=== PATIENT | male | born 1980 | race Caucasian/White ===

== ENCOUNTER 2017-11-30 17:07 | Emergency (ER) | payer OTHER ==
--- NOTE | 2017-11-30 17:50 | ED ---
General Adult HPI - General Chief complaint: Psychiatric Symptoms Stated complaint: Mental Health Time Seen by Provider: 11/30/17 17:10 Source: patient, RN notes reviewed Mode of arrival: ambulatory Limitations: no limitations - History of Present Illness Initial comments: This is a 37-year-old male who presents emergency Department with a past medical history significant for depression and anxiety PTSD. Patient also has in the past attempted suicide. Patient was upset with a lot of things going on his life in today in Court he broke down a stair clean was crying and stating he was going to kill himself so he was brought to the emergency department. Patient states over the last month he has had severe mood changes in his been very verbally abusive to his . Patient states he is feeling suicidal but not homicidal. Patient denies any recent drug use. Patient denies any alcohol use. Patient denies any physical complaints today. Patient denies headache patient denies numbness weakness. Patient denies chest pain palpitations difficulty breathing shortness of breath. Patient denies abdominal pain patient denies nausea vomiting diarrhea. - Related Data Home Medications Medication Instructions Recorded Confirmed Beckley Carbonate [Beckley 450 mg PO HS 11/30/17 11/30/17 Carbonate ER] Loratadine [Claritin] 10 mg PO DAILY 11/30/17 11/30/17 QUEtiapine XR [SEROquel XR] 150 mg PO HS 11/30/17 11/30/17 traMADol HCL [Ultram] 50 mg PO TID PRN 11/30/17 11/30/17 Allergies Allergy/AdvReac Type Severity Reaction Status Date / Time No Known Allergies Allergy Verified 11/30/17 17:52 Review of Systems ROS Statement: Those systems with pertinent positive or pertinent negative responses have been documented in the HPI. ROS Other: All systems not noted in ROS Statement are negative. Past Medical History Past Medical History: No Reported History History of Any Multi-Drug Resistant Organisms: MRSA Date of last positivie culture/infection: 2010 MDRO Source:: left arm Past Surgical History: No Surgical Hx Reported Past Psychological History: Anxiety, Bipolar, PTSD Smoking Status: Current every day smoker Past Alcohol Use History: Occasional Past Drug Use History: Marijuana General Exam - General Exam Comments Initial Comments: GENERAL: Patient is well-developed and well-nourished. Patient is nontoxic and well- hydrated and is in no acute distress. ENT: Neck is soft and supple. No significant lymphadenopathy is noted. Oropharynx is clear. Moist mucous membranes. Neck has full range of motion without eliciting any pain. EYES: The sclera were anicteric and conjunctiva were pink and moist. Extraocular movements were intact and pupils were equal round and reactive to light. Eyelids were unremarkable. PULMONARY: Unlabored respirations. Good breath sounds bilaterally. No audible rales rhonchi or wheezing was noted. CARDIOVASCULAR: There is a regular rate and rhythm without any murmurs gallops or rubs. ABDOMEN: Soft and nontender with normal bowel sounds. No palpable organomegaly was noted. There is no palpable pulsatile mass. SKIN: Skin is clear with no lesions or rashes and otherwise unremarkable. NEUROLOGIC: Patient is alert and oriented x3. Cranial nerves II through XII are grossly intact. Motor and sensory are also intact. Normal speech, volume and content. Symmetrical smile. MUSCULOSKELETAL: Normal extremities with adequate strength and full range of motion. LYMPHATICS: No significant lymphadenopathy is noted PSYCHIATRIC: Patient states he is suicidal and been very depressed lately and he is also concerned about his severe mood swings lately. Limitations: no limitations Course Vital Signs 11/30/17 17:13 Temperature 97.2 F L Pulse Rate 77 Respiratory 16 Rate Blood Pressure 135/82 O2 Sat by Pulse 98 Oximetry Medical Decision Making - Medical Decision Making EPS evaluated the patient and determined that the patient was safe to go home with a follow-up appointment with [facility] tomorrow. - Lab Data Lab Results 11/30/17 Range/Units 19:00 Urine Opiates Screen Not Detected (NotDetected) Ur Oxycodone Screen Not Detected (NotDetected) Urine Methadone Screen Not Detected (NotDetected) Ur Propoxyphene Screen Not Detected (NotDetected) Ur Barbiturates Screen Not Detected (NotDetected) U Tricyclic Antidepress Not Detected (NotDetected) Ur Phencyclidine Scrn Not Detected (NotDetected) Ur Amphetamines Screen Detected H (NotDetected) U Methamphetamines Scrn Not Detected (NotDetected) U Benzodiazepines Scrn Not Detected (NotDetected) Urine Cocaine Screen Not Detected (NotDetected) U Marijuana (THC) Screen Not Detected (NotDetected) Disposition Clinical Impression: Situational depression Disposition: HOME SELF-CARE Condition: Good Instructions: Depression (ED) Referrals: Lobo Villarreal MD [Primary Care Provider] - 1-2 days Time of Disposition: 20:05
[2017-11-30 19:28] LABS: Amphetamine Screen,Urine Detected (NotDetected); Barbiturate Screen,Urine Not Detected (NotDetected); Benzodiazepines Screen,Urine Not Detected (NotDetected); Cocaine Screen,Urine Not Detected (NotDetected); Methadone Screen, Urine Not Detected (NotDetected); Opiate Screen,Urine Not Detected (NotDetected); Oxycodone Screen, Urine Not Detected (NotDetected); Phencyclidine Screen,Urine Not Detected (NotDetected); Tricyclic Antidepressant,Urine Not Detected (NotDetected); Urn Cannabinoid Scrn Not Detected (NotDetected)
[2017-11-30 21:15] VITALS: BP 142/73; PULSE 84; RESP 18; TEMP 97.9
== END 2017-11-30 21:20 | disposition home or self-care (01) ==
LOC: EC 17:07
DX: F43.21 Adjustment disorder with depressed mood (principal); F31.9 Bipolar disorder, unspecified; F17.200 Nicotine dependence, unspecified, uncomplicated; Z86.14 Personal history of Methicillin resistant Staphylococcus aureus infection; Z79.899 Other long term (current) drug therapy
CPT/HCPCS: 80306; 82075; 99284

== ENCOUNTER 2017-12-08 11:33 | Inpatient (IN) | payer MEDICAID, OTHER ==
--- NOTE | 2017-12-08 13:14 | ED ---
Psych HPI - General Chief Complaint: Psychiatric Symptoms Stated Complaint: mental health Time Seen by Provider: 12/08/17 11:39 Source: patient, RN notes reviewed Mode of arrival: ambulatory Limitations: no limitations - History of Present Illness Initial Comments: 37-year-old male presents emergency Department with chief complaint of psychiatric evaluation. Patient states that he is depressed, suicidal. Patient states he has been in a row of facilities in the past. Patient states that he is not safe at home. Family states that he was recently started on injection medications but states he just received yesterday and he cannot be left at home any longer. Denies any recent drug abuse but has a history of drug abuse and pill overdose. Patient denies alcohol. - Related Data Home Medications Medication Instructions Recorded Confirmed Delisle Carbonate [Delisle 900 mg PO HS 11/30/17 12/08/17 Carbonate ER] Loratadine [Claritin] 10 mg PO DAILY 11/30/17 12/08/17 traMADol HCL [Ultram] 50 mg PO TID PRN 11/30/17 12/08/17 Benztropine Mesylate [Cogentin] 2 mg PO BID 12/08/17 12/08/17 QUEtiapine FUMARATE [SEROquel] 200 mg PO HS 12/08/17 12/08/17 fluPHENAZine DECANOATE [Prolixin 25 mg IM Q7D 12/08/17 12/08/17 Decanoate] Allergies Allergy/AdvReac Type Severity Reaction Status Date / Time No Known Allergies Allergy Verified 12/08/17 12:18 Review of Systems ROS Statement: Those systems with pertinent positive or pertinent negative responses have been documented in the HPI. ROS Other: All systems not noted in ROS Statement are negative. Past Medical History Past Medical History: No Reported History History of Any Multi-Drug Resistant Organisms: MRSA Date of last positivie culture/infection: 2010 MDRO Source:: left arm Past Surgical History: No Surgical Hx Reported Past Psychological History: Anxiety, Bipolar, PTSD Smoking Status: Current every day smoker Past Alcohol Use History: Occasional Past Drug Use History: Marijuana General Exam Limitations: no limitations General appearance: alert, in no apparent distress Eye exam: Present: normal appearance, PERRL, EOMI. Absent: scleral icterus, conjunctival injection, periorbital swelling ENT exam: Present: normal exam, normal oropharynx, mucous membranes moist Neck exam: Present: normal inspection, full ROM. Absent: tenderness, meningismus, lymphadenopathy Respiratory exam: Present: normal lung sounds bilaterally. Absent: respiratory distress, wheezes, rales, rhonchi, stridor Cardiovascular Exam: Present: regular rate, normal rhythm, normal heart sounds. Absent: systolic murmur, diastolic murmur, rubs, gallop, clicks GI/Abdominal exam: Present: soft, normal bowel sounds. Absent: distended, tenderness, guarding, rebound, rigid Back exam: Absent: CVA tenderness (R), CVA tenderness (L) Neurological exam: Present: alert, oriented X3, CN II-XII intact Psychiatric exam: Present: depressed Skin exam: Present: warm, dry, intact, normal color. Absent: rash Course Vital Signs 12/08/17 11:37 Temperature 98.0 F Pulse Rate 90 Respiratory 20 Rate Blood Pressure 160/84 O2 Sat by Pulse 100 Oximetry Disposition Clinical Impression: Depression, Suicidal ideation Disposition: [facility] Condition: Stable Referrals: Lobo Villarreal MD [Primary Care Provider] - 1-2 days
[2017-12-08 15:54] LABS: Amphetamine Screen,Urine Detected (NotDetected); Barbiturate Screen,Urine Not Detected (NotDetected); Benzodiazepines Screen,Urine Not Detected (NotDetected); Cocaine Screen,Urine Not Detected (NotDetected); Methadone Screen, Urine Not Detected (NotDetected); Opiate Screen,Urine Not Detected (NotDetected); Oxycodone Screen, Urine Not Detected (NotDetected); Phencyclidine Screen,Urine Not Detected (NotDetected); Tricyclic Antidepressant,Urine Not Detected (NotDetected); Urn Cannabinoid Scrn Not Detected (NotDetected)
[2017-12-08] MEDS ORDERED: MAG HYDROX/AL HYDROX/SIMETH 30 ML CUP PO PRN (16:58)
[2017-12-08] MEDS ORDERED: ACETAMINOPHEN TAB 325 MG TAB PO PRN (16:58)
[2017-12-08] MEDS ORDERED: MAGNESIUM HYDROXIDE 2,400 MG/10 ML CUP PO PRN (16:58)
[2017-12-08 17:12] VITALS: BMI 25.4
[2017-12-08] MEDS: NICOTINE POLACRILEX 2 MG GUM BUCCAL PRN (19:58)
[2017-12-08] MEDS: LORazepam 1 MG TAB PO PRN (20:29)
[2017-12-08] MEDS ORDERED: BENZTROPINE MESYLATE 1 MG TAB PO SCH (21:00)
[2017-12-08] MEDS ORDERED: LORazepam 1 MG TAB PO STA (22:58)
[2017-12-09 06:49] VITALS: RESP 16
--- NOTE | 2017-12-09 06:54 | P.MDCNMH ---
History of Present Illness H&P Date: 12/09/17 Chief Complaint: Medical management 36-year-old male with no significant past medical history presented to the hospital voluntarily for psychiatric evaluation due to feeling depressed and having suicidal ideations. Patient indicated that he never attempted suicide but he gets these thoughts on regular basis and he's been different facilities and past. He reports that he is compliant with his medications at this time. Other than that he denies any medical complaints as he denied headache, fevers, chills, denies any weight changes, denies any chest pain or trouble breathing denies any coughing denies any abdominal pain denies any nausea or vomiting denies any changes in his bowel habits or urinary habits denies any focal neurologic deficits dizziness or lightheadedness. Patient also denies any GI bleeding or any bleeding tendencies. Review of Systems Pertinent positives as noted in HPI. All other systems were reviewed and are negative Past Medical History Past Medical History: No Reported History History of Any Multi-Drug Resistant Organisms: MRSA Date of last positivie culture/infection: 2010 MDRO Source:: left arm Past Surgical History: No Surgical Hx Reported Past Anesthesia/Blood Transfusion Reactions: No Reported Reaction Past Psychological History: Anxiety, Bipolar, PTSD Smoking Status: Current every day smoker Past Alcohol Use History: Occasional Past Drug Use History: Marijuana - Past Family History Mother Family Medical History: COPD Father Additional Family Medical History / Comment(s): alcohol abuse Medications and Allergies Home Medications Medication Instructions Recorded Confirmed Type Tomball Carbonate [Tomball 900 mg PO HS 11/30/17 12/08/17 History Carbonate ER] Loratadine [Claritin] 10 mg PO DAILY 11/30/17 12/08/17 History traMADol HCL [Ultram] 50 mg PO TID PRN 11/30/17 12/08/17 History Benztropine Mesylate [Cogentin] 2 mg PO BID 12/08/17 12/08/17 History Nicotine Polacrilex [Nicorette] 2 mg BUCCAL Q2H 12/08/17 12/08/17 History QUEtiapine FUMARATE [SEROquel] 200 mg PO HS 12/08/17 12/08/17 History fluPHENAZine DECANOATE [Prolixin 25 mg IM Q7D 12/08/17 12/08/17 History Decanoate] Allergies Allergy/AdvReac Type Severity Reaction Status Date / Time No Known Allergies Allergy Verified 12/08/17 12:18 Physical Exam Vitals: Vital Signs Temp Pulse Pulse Resp BP BP Pulse Ox 12/09/17 06:48 97.7 F 74 16 119/58 12/08/17 16:59 98 F 78 20 134/73 12/08/17 11:37 98.0 F 90 20 160/84 100 Intake and Output 12/08/17 12/08/17 12/09/17 14:59 22:59 06:59 Other: Weight 81.193 kg 78.131 kg Patient Weight 12/09/17 06:59 Weight 78.131 kg Constitutional: No acute distress, conversant, pleasant Eyes: Anicteric sclerae, moist conjunctiva, no lid-lag Pupils equal round reactive to light ENMT: NC/AT Oropharynx clear, no erythema, exudates Neck: Supple, FROM, no masses, or JVD No carotid bruits No thyromegaly Lungs: Clear to auscultation Clear to percussion Normal respiratory effort, no accessory muscle use Cardiovascular: Heart regular in rate and rhythm, No murmurs, gallops, or rubs No peripheral edema Abdominal: Soft Nontender, no guarding, rebound or rigidity Abdomen moving with respiration Normoactive bowel sounds No hepatomegaly, No splenomegaly No palpable mass No abdominal wall hernia noted Skin: Normal temperature, tone, texture, turgor No induration No subcutaneous nodules No rash, lesions No ulcers Extremities: No digital cyanosis No clubbing Pedal pulses intact and symmetrical Radial pulses intact and symmetrical No calf tenderness Psychiatric: Alert and oriented to person, place and time Depressed affect poor judgment Neuro Muscles Strength 5/5 in all 4 extremities Sensation to light touch grossly present throughout No focal sensory deficits Lymphatics: no palpable cervical or supraclavicular , or inguinal lymph nodes Cranial Nerve Examination - Cranial Nerves Cranial Nerve II- Optic: Intact Cranial Nerve III- Oculomotor: Intact Cranial Nerve IV- Trochlear: Intact Cranial Nerve V- Trigeminal: Intact Cranial Nerve - Abducens: Intact Cranial Nerve VII- Facial: Intact Cranial Nerve VIII- Auditory: Intact Cranial Nerve IX- Glossopharyngeal: Intact Cranial Nerve X- Vagus: Intact Cranial Nerve XI- Accessory: Intact Cranial Nerve XII- Hypoglossal: Intact Results Labs: Abnormal Lab Results - Last 24 Hours (Table) 12/08/17 Range/Units 15:28 Ur Amphetamines Screen Detected H (NotDetected) Assessment and Plan (1) Depression Narrative/Plan: Management per psych Current Visit: Yes Status: Acute Code(s): F32.9 - MAJOR DEPRESSIVE DISORDER , SINGLE EPISODE, UNSPECIFIED SNOMED Code(s): 49023069 (2) Suicidal ideation Narrative/Plan: Torrie precautions management per psych Current Visit: Yes Status: Acute Code(s): R45.851 - SUICIDAL IDEATIONS SNOMED Code(s): 9062616 Plan: tobacco smoking abuse patient counseled to quit smoking dvt Prophylaxis low risk and ambulatory Thank you for allowing us to participate in the care of this patient. We will follow peripherally. Do not hesitate to contact us with questions. Someone can be reached from the [facility] hospitalist group at all hours of the day at [phone].
[2017-12-09 08:14] LABS: Basophils # (A) 0.1 k/uL (0-0.2); Basophils % (A) 1 %; Eosinophils # (A) 0.3 k/uL (0-0.7); Eosinophils % (A) 4 %; HCT 42.1 % (39.0-53.0); HGB 14.3 gm/dL (13.0-17.5); Lymphocytes # (A) 3.3 k/uL (1.0-4.8); Lymphocytes % (A) 40 %; MCH 29.6 pg (25.0-35.0); MCHC 33.9 g/dL (31.0-37.0); MCV 87.4 fL (80.0-100.0); Monocytes # (A) 0.5 k/uL (0-1.0); Monocytes % (A) 6 %; Neutrophils % (A) 49 %; Platelet Count 327 k/uL (150-450); RBC 4.81 m/uL (4.30-5.90); RDW 13.1 % (11.5-15.5); WBC 8.2 k/uL (3.8-10.6)
[2017-12-09 08:54] LABS: ALT 28 U/L (21-72); AST 27 U/L (17-59); Albumin 3.8 g/dL (3.5-5.0); Alkaline Phosphatase 71 U/L (38-126); Anion Gap 10 mmol/L; Calcium 9.5 mg/dL (8.4-10.2); Carbon Dioxide 26 mmol/L (22-30); Chloride 106 mmol/L (98-107); Cholesterol 120 mg/dL (<200); Glucose 93 mg/dL (74-99); HDL Cholesterol 52 mg/dL (40-60); LDL Cholesterol,Calculated 51 mg/dL (0-99); Potassium 4.6 mmol/L (3.5-5.1); Sodium 142 mmol/L (137-145); Total Bilirubin 0.8 mg/dL (0.2-1.3); Total Protein 6.2 g/dL (6.3-8.2); Triglycerides 86 mg/dL (<150)
[2017-12-09 09:11] LABS: Blood Urea Nitrogen 13 mg/dL (9-20)
--- NOTE | 2017-12-09 09:13 | P.HP ---
Psychiatric H&P - . H&P Date: 12/09/17 History & Physical: Allergies Allergy/AdvReac Type Severity Reaction Status Date / Time No Known Allergies Allergy Verified 12/08/17 12:18 Vital Signs Temp 97.7 F 12/09/17 06:48 Pulse 74 12/09/17 06:48 Resp 16 12/09/17 06:48 BP 119/58 12/09/17 06:48 Pulse Ox 100 12/08/17 11:37 Intake & Output 12/08/17 12/09/17 12/09/17 18:59 06:59 18:59 Weight 78.131 kg 78.131 kg Laboratory Last Values WBC 8.2 k/uL (3.8-10.6) 12/09/17 07:48 RBC 4.81 m/uL (4.30-5.90) 12/09/17 07:48 Hgb 14.3 gm/dL (13.0-17.5) 12/09/17 07:48 Hct 42.1 % (39.0-53.0) 12/09/17 07:48 MCV 87.4 fL (80.0-100.0) 12/09/17 07:48 MCH 29.6 pg (25.0-35.0) 12/09/17 07:48 MCHC 33.9 g/dL (31.0-37.0) 12/09/17 07:48 RDW 13.1 % (11.5-15.5) 12/09/17 07:48 Plt Count 327 k/uL (150-450) 12/09/17 07:48 Neutrophils % 49 % 12/09/17 07:48 Lymphocytes % 40 % 12/09/17 07:48 Monocytes % 6 % 12/09/17 07:48 Eosinophils % 4 % 12/09/17 07:48 Basophils % 1 % 12/09/17 07:48 Neutrophils # 4.0 k/uL (1.3-7.7) 12/09/17 07:48 Lymphocytes # 3.3 k/uL (1.0-4.8) 12/09/17 07:48 Monocytes # 0.5 k/uL (0-1.0) 12/09/17 07:48 Eosinophils # 0.3 k/uL (0-0.7) 12/09/17 07:48 Basophils # 0.1 k/uL (0-0.2) 12/09/17 07:48 Urine Opiates Screen Not Detected (NotDetected) 12/08/17 15:28 Ur Oxycodone Screen Not Detected (NotDetected) 12/08/17 15:28 Urine Methadone Screen Not Detected (NotDetected) 12/08/17 15:28 Ur Propoxyphene Screen Not Detected (NotDetected) 12/08/17 15:28 Ur Barbiturates Screen Not Detected (NotDetected) 12/08/17 15:28 U Tricyclic Antidepress Not Detected (NotDetected) 12/08/17 15:28 Ur Phencyclidine Scrn Not Detected (NotDetected) 12/08/17 15:28 Ur Amphetamines Screen Detected (NotDetected) H 12/08/17 15:28 U Methamphetamines Scrn Not Detected (NotDetected) 12/08/17 15:28 U Benzodiazepines Scrn Not Detected (NotDetected) 12/08/17 15:28 Urine Cocaine Screen Not Detected (NotDetected) 12/08/17 15:28 U Marijuana (THC) Screen Not Detected (NotDetected) 12/08/17 15:28 12/09/17 08:52 Identification: Willi Arias is a 37 years old white male living in [facility]. He was ? Recently admitted to [facility] on 12/08/2017 on a voluntary application for referral from [facility] with chief complaint of being depressed and having suicidal thoughts. History of present illness: Patient said he has been depressed for the last 2 months now. But he said he has been depressed since he was less than 10 years so. It is continuous and gets worse lasting from 2 hours to 2 months. He said his depression is precipitated by events in his life. He said during his severe depression he gets grider agitated and gets suicidal thoughts. This time he said he has been having suicidal thoughts for the last about week and a half. But he said he is not suicidal now and does not need to be watched or supervised. He said he had overdosed on pills on 1 occasion in the past. He also said he gets more swings. When he is manic it lasts for a few hours to 2 days. It could start on its own or it could be precipitated by external events. During his "manic". He gets angry and argumentative fights etc. He said because of his manic episodes he was kicked out of the house for fighting on one occasion. He denies hallucinations and delusional thinking. Previous psychiatric history/drug and alcohol abuse: He was in psychiatric hospitals about 6 times in the past and mostly for depression. He gets his outpatient treatment at [facility]. He was treated in the past with lithium and Seroquel Effexor trazodone Lexapro etc. Prior to coming here he got a shot of Prolixin D. He does not take any medicine on a regular basis. He denies abusing drugs and alcohol he said he had smoked in the past but he quit it since he is on probation. However patient is not a reliable historian and does not appear to provide history in a truthful manner. His drug screening was positive for amphetamine and when he was asked about it he admitted that he did some speed. Again his history is unreliable. Social history: Patient said he got his GED. He said he quit school in 10th grade since he got sick of his teachers. He said he did not have any issues with learning or discipline when he was going to school. However at the end of the interview when he was asked again he admitted that he did what he wanted and was suspended from school once. He insisted that he did not run away from home did not cut classes and was not in extracurricular activities. However eventually he said he was cutting classes and was goofing around. He said he was shy and nervous and minded his own business. Again this information does not coincide with his clinical presentation. He said he was raised well by his grandmother since his parents were busy partying. Apparently his grandmother had legal guardianship of him. He has been for the last 2 years. He does not have any children from his . But he has 4 children from 2 different women and apparently he pays child support through the court. However he does not have a job and does not have any income. It is interesting to find out how he is making payment for child support through the court. He said he lives with his who works. He is waiting for [employer]. He has Medicaid. He was not in the service. He does not have any congregational but he believes in God. He is heterosexual. He said he is on probation for domestic violence towards his which is good for next 2 months. But again he is living with his even though he is on probation for domestic violence against her. He denied any other legal issues. But eventually at the end of the interview when he was questioned again he said he was in long term for felonious assault and several other things in the past a few times Family history: His mother of COPD. His grandmother of cancer. Mental status examination: This is a bright ambulatory male with a well trimmed and maintained mustache and rivera. He is well groomed. He has multiple tattoos all over his body. He does not show any psychomotor agitation or retardation. His speech is spontaneous and relevant and goal directed. But his information is unreliable and it appears that he wants to tell me what he thinks I should know instead of the facts. His mood is cheerful and affect is appropriate to the thought content except he was quite nonchalant when he was saying that he was depressed or had suicidal thoughts. He denies hallucinations and delusional thinking. He denies current suicidal and homicidal thoughts. His insight is poor and judgment is impaired as evidenced by not providing accurate information, not complying with treatment, having legal problems etc. He said today is 11/29/2017. He is able to recall only one out of 3 items after 5 minutes. He is able to spell house correctly but he spelled it backwards as ESOUH. He is able to name only the last 2 presidents when he was asked to name the last 4. He is able to say 8+7 is 15. But he said 87 is 42. 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 Treatment plan: He already had his physical examination. He will have psychosocial evaluation. He will receive milieu therapy group therapy individual therapy occupational therapy and recreational therapy and medication education. After discussing his condition, medication and proposed treatment it was agreed for him to try Abilify 10 mg a day and Depakote ER 1500 mg per day since he weighs 78.13 kg. Adjusted dose as necessary. Discharge with outpatient follow-up. Treatment goals: He will learn better coping skills. He will continue to be free of suicide and homicide thoughts. His reported mood will be stable. Estimated length of stay: 3-5 days.
[2017-12-09] MEDS: DIVALPROEX ER 500 MG TAB.ER.24H PO SCH (09:46)
[2017-12-09] MEDS: ARIPiprazole 10 MG TAB PO SCH (09:46)
[2017-12-09] MEDS: LORATADINE 10 MG TAB PO SCH (09:47)
[2017-12-09] MEDS: NAPROXEN 250 MG TAB PO SCH ×2 (09:52→20:18)
[2017-12-09] MEDS: NICOTINE POLACRILEX 2 MG GUM BUCCAL PRN ×2 (12:15→20:18)
[2017-12-09 16:52] LABS: Hemoglobin A1C 4.9 % (4.0-6.0)
[2017-12-09] MEDS: LORazepam 1 MG TAB PO PRN (20:18)
[2017-12-10] MEDS: NAPROXEN 250 MG TAB PO SCH ×2 (08:08→20:07)
[2017-12-10] MEDS: LORATADINE 10 MG TAB PO SCH (08:08)
[2017-12-10] MEDS: DIVALPROEX ER 500 MG TAB.ER.24H PO SCH (08:10)
[2017-12-10] MEDS: NICOTINE POLACRILEX 2 MG GUM BUCCAL PRN ×4 (08:10→20:50)
[2017-12-10] MEDS: ARIPiprazole 10 MG TAB PO SCH (08:10)
--- NOTE | 2017-12-10 08:46 | P.PN ---
Progress Note - Text Progress Note Date: 12/10/17 Patient is seen for a follow-up evaluation. He said he did not sleep well the night before and so was sleepy yesterday and slept most of the day and did not attend the groups. He took his medications yesterday and this morning. He denies any adverse effects from the medication, Abilify and Depakote. He said he has taken quite a few medications in the past but he feels better on this combination than any other medication he had taken. He does not have any particular complaints or concerns at this point. This is a white ambulatory male with good hygiene. He is cheerful polite and cooperative. He does not show any psychomotor agitation or retardation. His speech is spontaneous relevant and goal directed. His mood is cheerful and affect is appropriate. He denies hallucinations, delusional thinking, suicidal and homicidal ideas. He is well oriented with adequate memory concentration general knowledge etc. Plan: Continue Abilify, Depakote and the therapies.
[2017-12-10] MEDS: LORazepam 1 MG TAB PO PRN (16:44)
[2017-12-11] MEDS: ARIPiprazole 10 MG TAB PO SCH (08:14)
[2017-12-11] MEDS: NAPROXEN 250 MG TAB PO SCH ×2 (08:14→20:26)
[2017-12-11] MEDS: LORATADINE 10 MG TAB PO SCH (08:15)
[2017-12-11] MEDS: DIVALPROEX ER 500 MG TAB.ER.24H PO SCH (08:15)
[2017-12-11] MEDS: LORazepam 1 MG TAB PO PRN ×2 (10:21→20:29)
--- NOTE | 2017-12-11 12:00 | P.PN ---
Progress Note - Text Progress Note Date: 12/11/17 Interval History: Patient is a 37-year-old male who is being seen for the weekend coverage and he reports that he is feeling much better and not as sleepy during the day off of the Seroquel. He reports he slept well last night and is noted he slept for 6 hours. He states that he is not feeling as depressed and has no current suicidal ideation. He denies any racing thoughts. Patient denies any psychotic symptoms. He states that he has been attending some groups and activities and reports no side effects from the medication. Mental Status: Appearance/Attitude: Patient is appropriately dressed, was found sleeping in his room came to the interview room made good eye contact and was cooperative. Behavior: Patient did not display any psychomotor agitation or retardation. Speech/Language: Patient's speech was spontaneous and normal volume and rhythm and he was coherent. Thought Process: Patient was goal-directed there was no evidence of loose associations or flight of ideas. Thought Content: Patient denied any auditory or visual hallucinations no delusions or paranoid ideation were elicited. He reported he slept well last evening and is not feeling groggy during the day. He reports his appetite is good. He denied any racing thoughts and states he is not feeling hopeless or helpless. Suicidal/Homicidal Ideation: Patient denied any current suicidal or homicidal ideation. Sensorium/Cognition: Patient is alert and oriented to person, place, time and his recent and remote memory were grossly intact. Mood/Affect: Patient's mood is less depressed and his affect is appropriate Insight/Judgment: Patient's insight and judgment are fair. Assessment: Patient reports feeling less groggy during the day off of Seroquel and feels that these medications are working better for him. He reports he is feeling less depressed and no current suicidal ideation and states that he is not having any racing thoughts. Patient states he is attempting to attend some groups and activities. He reports no side effects from current medications. Plan: Patient continue on Abilify 10 mg and Depakote 1500 mg to target his mood and continues to requires hospitalization to further stabilize his mood. Patient was encouraged to continue attending groups and activities.
[2017-12-11] MEDS: NICOTINE POLACRILEX 2 MG GUM BUCCAL PRN ×2 (16:00→20:31)
[2017-12-12] MEDS: DIVALPROEX ER 500 MG TAB.ER.24H PO SCH (09:03)
[2017-12-12] MEDS: ARIPiprazole 10 MG TAB PO SCH (09:03)
[2017-12-12] MEDS: LORATADINE 10 MG TAB PO SCH (09:03)
[2017-12-12] MEDS: NICOTINE POLACRILEX 2 MG GUM BUCCAL PRN ×2 (09:04→10:59)
[2017-12-12] MEDS: NAPROXEN 250 MG TAB PO SCH ×2 (09:04→20:36)
[2017-12-12] MEDS ORDERED: LORazepam 0.5 MG TAB PO PRN (11:46)
--- NOTE | 2017-12-12 11:51 | P.PN ---
Progress Note - Text Progress Note Date: 12/12/17 Interval History: Patient is a 37-year-old male who is being seen in [facility] [place] this weekend. Patient reports that he has been feeling much better, his mood is more stable he is no longer feeling depressed and no longer irritable. He states that he continues to have difficulty sleeping and when taking the Ativan at bedtime feels sedated when he wakes up in the morning and has difficulty getting up. He reports that he is not having any suicidal ideation and he is attending groups and activities. Mental Status: Appearance/Attitude: Patient is appropriately dressed, makes good eye contact and is cooperative Behavior: Patient does not display any psychomotor agitation or retardation. Speech/Language: Patient's speech is spontaneous of normal volume and rhythm and he is coherent Thought Process: Patient is goal-directed there is no evidence of loose association or flight of ideas Thought Content: Patient denies auditory or visual hallucinations and no delusions or paranoid ideation were elicited. Patient reports he is no longer feeling depressed, no racing thoughts and states he is sleeping with the help of Ativan but feels overly sedated in the morning. Patient's appetite is good Suicidal/Homicidal Ideation: He denies any current suicidal or homicidal ideation Sensorium/Cognition: Patient is alert and oriented to person, place, and time and his recent and remote memory are grossly intact. Mood/Affect: Patient's mood is euthymic and his affect is appropriate Insight/Judgment: Patient's insight and judgment are fair Assessment: Patient reports he stopped his medications, his symptoms of depression returned and he reports feeling much better having been restarted on his medications. Patient states that he is not having any symptoms of depression and denies any suicidal thoughts. He states his mood is stable and he is been attending groups and activities. He states that he is having difficulty sleeping at night and when using the Ativan is too groggy in the morning. He reports no side effects from his medications and none were observed on exam. Plan: Patient will continue on Abilify 10 mg a day and Depakote 1500 mg a day and I will decrease the Ativan when necessary dose 0.5 mg 3 times a day and will add melatonin 3 mg at bedtime to target his sleep. Patient continues to require hospitalization to further stabilize his mood and sleep.
[2017-12-12] MEDS ORDERED: MELATONIN 3 MG TABLET PO SCH (21:00)
[2017-12-13 06:57] VITALS: BP 99/54; PULSE 74; TEMP 97.9
[2017-12-13] MEDS: NAPROXEN 250 MG TAB PO SCH (08:24)
[2017-12-13] MEDS: DIVALPROEX ER 500 MG TAB.ER.24H PO SCH (08:24)
[2017-12-13] MEDS: ARIPiprazole 10 MG TAB PO SCH (08:24)
[2017-12-13] MEDS: LORATADINE 10 MG TAB PO SCH (08:24)
[2017-12-13] MEDS: NICOTINE POLACRILEX 2 MG GUM BUCCAL PRN (08:25)
--- NOTE | 2017-12-13 10:43 | P.DS ---
Providers Date of admission: 12/08/17 16:38 Expected date of discharge: 12/13/17 Attending physician: Mik Rodriguez Consults: 12/08/17 16:58 Consult Physician Routine Consulting Provider: [facility] Consult Reason/Comments: H&P Do you want consulting provider notified?: Yes Primary care physician: [facility] Course: Patient had his psychiatric examination, physical examination and psychosocial evaluation. After psychiatric examination he was started on Abilify 10 mg a day and Depakote 1500 mg a day for "mood stabilization", Flonase for ALLERGIC rhinitis and naproxen for carpal tunnel syndrome. He took these medications without any adverse effects. His mood became stable and he has been cooperative attending his groups and socializing with peers and interacting with staff members. He felt his mood became better and said he did not feel this well on any other medications in the past. He feels he is ready to go home and stay with his . This is a white ambulatory male with good hygiene. He is polite and cooperative. He does not show any psychomotor agitation or retardation. His speech is spontaneous relevant and goal directed. His mood is euthymic and affect is appropriate. He denies hallucinations, delusional thinking, suicidal and homicidal ideas. He is well oriented with good memory concentration and fund of knowledge etc. His insight and judgment are adequate. 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 NKDA Carpal tunnel syndrome ALLERGIC rhinitis. Discharge recommendations: Take your medications as prescribed, do not drink alcohol or use drugs, seek drug rehabilitation, do not drive or operate machinery if you feel sleepy, do not stop medications without your doctor's consent, learn better coping skills throughout therapy. Check Depakote level CBC and liver enzymes within a week. Patient agreed with these recommendations. Patient Condition at Discharge: Good Plan - Discharge Summary Discharge Rx Participant: No New Discharge Prescriptions: New Acetaminophen Tab [Tylenol] 650 mg PO Q4HR PRN tab PRN Reason: Pain/Discomfort ARIPiprazole [Abilify] 10 mg PO DAILY 30 Days #30 tab Divalproex ER [Depakote ER] 1,500 mg PO DAILY 30 Days #30 tab.er.24h Mag Hydrox/Al Hydrox/Simeth [Maalox] 30 ml PO Q4HR PRN cup PRN Reason: Gi Upset Magnesium Hydroxide [Milk of Magnesia Concentrate] 2,400 mg PO DAILY PRN ml PRN Reason: Constipation Naproxen [Naprosyn] 250 mg PO BID 30 Days #60 tab Continue Loratadine [Claritin] 10 mg PO DAILY 30 Days #30 tab Discontinued traMADol HCL [Ultram] 50 mg PO TID PRN PRN Reason: Pain [place] Carbonate [[place] Carbonate ER] 900 mg PO HS fluPHENAZine DECANOATE [Prolixin Decanoate] 25 mg IM Q7D Benztropine Mesylate [Cogentin] 2 mg PO BID QUEtiapine FUMARATE [SEROquel] 200 mg PO HS Nicotine Polacrilex [Nicorette] 2 mg BUCCAL Q2H Discharge Medication List ARIPiprazole [Abilify] 10 mg PO DAILY 30 Days #30 tab 12/13/17 [Rx] Acetaminophen Tab [Tylenol] 650 mg PO Q4HR PRN tab 12/13/17 [Rx] Divalproex ER [Depakote ER] 1,500 mg PO DAILY 30 Days #30 tab.er.24h 12/13/17 [ Rx] Loratadine [Claritin] 10 mg PO DAILY 30 Days #30 tab 12/13/17 [Rx] Mag Hydrox/Al Hydrox/Simeth [Maalox] 30 ml PO Q4HR PRN cup 12/13/17 [Rx] Magnesium Hydroxide [Milk of Magnesia Concentrate] 2,400 mg PO DAILY PRN ml 02/25 [Rx] Naproxen [Naprosyn] 250 mg PO BID 30 Days #60 tab 12/13/17 [Rx] Follow up Appointment(s)/Referral(s): [facility] [Outside] - 12/14/17 1:00 pm (12-14-17 @ 1:00 for injection in [place] 12-16-17 @ 12:00 with Kathe Machado in [place] 01-29-18 @ 3:[address] Leslie in [place] ) Lobo Villarreal MD [Primary Care Provider] - 1-2 days Patient Instructions/Handouts: Depression (DC), Suicide Prevention for Adults ( DC) Activity/Diet/Wound Care/Special Instructions: Activity and diet as tolerated. Avoid the use of street drugs and alcohol. Remove all firearms from home. Take all medications as prescribed. When you are in need of refills of your medication please contact your medical provider and/ or outpatient psychiatrist to have this done. Please go to scheduled outpatient appointment for aftercare. If symptoms return or become worse you can call the Crisis Line at and/or go to the nearest emergency room for an evaluation. Discharge Disposition: HOME SELF-CARE
== END 2017-12-13 13:01 | disposition home or self-care (01) | DRG 885 ==
LOC: EC 11:33 → 3MHU 16:38
PROVIDERS: ADMIT Psychiatry & Neurology Psychiatry; ATTEND Psychiatry & Neurology Psychiatry
DX: F31.9 Bipolar disorder, unspecified (principal); F15.20 Other stimulant dependence, uncomplicated; R45.851 Suicidal ideations; F60.2 Antisocial personality disorder; G47.9 Sleep disorder, unspecified; K59.00 Constipation, unspecified; J30.9 Allergic rhinitis, unspecified; G56.00 Carpal tunnel syndrome, unspecified upper limb; F17.200 Nicotine dependence, unspecified, uncomplicated; Z79.899 Other long term (current) drug therapy; Z91.5 Personal history of self-harm; Z86.14 Personal history of Methicillin resistant Staphylococcus aureus infection
CPT/HCPCS: 80053; 80061; 80306; 82075; 83036; 84443; 85025; 99285

== ENCOUNTER 2019-03-05 02:28 | Emergency (ER) | payer OTHER ==
[2019-03-05 02:38] VITALS: RESP 19; TEMP 97.6
[2019-03-05 03:04] LABS: Basophils # (A) 0.1 k/uL (0-0.2); Basophils % (A) 1 %; Eosinophils # (A) 0.1 k/uL (0-0.7); Eosinophils % (A) 1 %; HCT 42.9 % (39.0-53.0); HGB 14.5 gm/dL (13.0-17.5); Lymphocytes # (A) 2.1 k/uL (1.0-4.8); Lymphocytes % (A) 19 %; MCH 28.6 pg (25.0-35.0); MCHC 33.8 g/dL (31.0-37.0); MCV 84.6 fL (80.0-100.0); Mean Platelet Volume 6.8; Monocytes # (A) 0.5 k/uL (0-1.0); Monocytes % (A) 4 %; Neutrophils # (A) 8.4 k/uL (1.3-7.7); Neutrophils % (A) 75 %; Platelet Count 322 k/uL (150-450); RBC 5.07 m/uL (4.30-5.90); WBC 11.3 k/uL (3.8-10.6)
[2019-03-05] MEDS ORDERED: SODIUM CHLORIDE 0.9% 1,000 ML IV STA (03:04)
[2019-03-05 03:09] LABS: ALT 35 U/L (21-72); AST 32 U/L (17-59); Albumin 4.6 g/dL (3.5-5.0); Alkaline Phosphatase 67 U/L (38-126); Anion Gap 12 mmol/L; Blood Urea Nitrogen 8 mg/dL (9-20); Calcium 9.8 mg/dL (8.4-10.2); Carbon Dioxide 21 mmol/L (22-30); Chloride 111 mmol/L (98-107); Glucose 99 mg/dL (74-99); Potassium 3.9 mmol/L (3.5-5.1); Sodium 144 mmol/L (137-145); Total Bilirubin 0.4 mg/dL (0.2-1.3)
[2019-03-05] MEDS ORDERED: ONDANSETRON 4 MG/2 ML VIAL IVP STA (03:13)
--- NOTE | 2019-03-05 03:15 | CT ---
EXAM: CT Head Without Intravenous Contrast CLINICAL HISTORY: ITS.REASON CT Reason: Pain TECHNIQUE: Axial computed tomography images of the head/brain without intravenous contrast. This CT exam was performed using one or more of the following dose reduction techniques: automated exposure control, adjustment of the mA and/or kV according to patient size, and/or use of iterative reconstruction technique. COMPARISON: No relevant prior studies available. FINDINGS: Brain: No hemorrhage. No edema. Ventricles: Unremarkable. No ventriculomegaly. Bones/joints: No acute fracture. Soft tissues: Unremarkable. Sinuses: No fluid levels. Mastoid air cells: Unremarkable as visualized. No mastoid effusion. IMPRESSION: No acute intracranial findings EXAM: CT Cervical Spine Without Intravenous Contrast CLINICAL HISTORY: ITS.REASON CT Reason: Pain TECHNIQUE: Axial computed tomography images of the cervical spine without intravenous contrast. This CT exam was performed using one or more of the following dose reduction techniques: automated exposure control, adjustment of the mA and/or kV according to patient size, and/or use of iterative reconstruction technique. COMPARISON: No relevant prior studies available. FINDINGS: Vertebrae: No acute fracture. Discs/spinal canal/neural foramina: No suspicious findings. Soft tissues: Unremarkable. IMPRESSION: No acute findings.
--- NOTE | 2019-03-05 03:16 | CT ---
EXAM: CT Maxillofacial Without Intravenous Contrast CLINICAL HISTORY: ITS.REASON CT Reason: Pain TECHNIQUE: Axial computed tomography images of the face without intravenous contrast. This CT exam was performed using one or more of the following dose reduction techniques: automated exposure control, adjustment of the mA and/or kV according to patient size, and/or use of iterative reconstruction technique. COMPARISON: No relevant prior studies available. FINDINGS: Bones/joints: No acute fracture. Soft tissues: See below. Orbits: Yaritza-orbital soft tissue injuries. Sinuses: No air-fluid levels. IMPRESSION: Yaritza-orbital soft tissue injuries.
[2019-03-05] MEDS ORDERED: DIPH,PERTUS(ACELL)TETVAC-LF 0.5 ML VIAL IM ONE (03:25)
--- NOTE | 2019-03-05 03:27 | ED ---
General Adult HPI - General Chief complaint: Fall Stated complaint: Fall-face injury Time Seen by Provider: 03/05/19 02:30 Source: patient, EMS, RN notes reviewed, old records reviewed Mode of arrival: EMS Limitations: no limitations - History of Present Illness Initial comments: 38-year-old male patient no pertinent past medical history presents to ED after sustaining a fall. Patient reports that he was drinking and while walking he fell forward was unable to catch himself, hitting his face on the ground. Patient was brought in to the hospital via police. Patient denies any other complaints. Patient denies any chest pain shortness breath abdominal pain nausea vomiting diarrhea, fevers or chills. Patient denies any loss of consciousness. Denies any use of blood thinners. Systemic: Pt denies fatigue, myalgia, fever/chills, rash. Pt denies weakness, night sweats, weight loss. Neuro: Pt denies headache, visual disturbances, syncope or pre-syncope. HEENT: Pt denies ocular discharge or irritation, otalgia, rhinorrhea, pharyngitis or notable lymphadenopathy. Cardiopulmonary: Pt denies chest pain, SOB, heart palpitations, dyspnea on exert ion. Abdominal/GI: Pt denies abdominal pain, n/v/d. : Pt denies dysuria, burning w/ urination, frequency/urgency. Denies new onset urinary or bowel incontinence. MSK: Pt denies myalgia, loss of strength or function in extremities. Neuro: Pt denies new onset weakness, paresthesias. - Related Data Previous Rx's Medication Instructions Recorded ARIPiprazole [Abilify] 10 mg PO DAILY 30 Days #30 tab 12/13/17 Acetaminophen Tab [Tylenol] 650 mg PO Q4HR PRN tab 12/13/17 Divalproex ER [Depakote ER] 1,500 mg PO DAILY 30 Days #30 12/13/17 tab.er.24h Loratadine [Claritin] 10 mg PO DAILY 30 Days #30 tab 12/13/17 Mag Hydrox/Al Hydrox/Simeth 30 ml PO Q4HR PRN cup 12/13/17 [Maalox] Magnesium Hydroxide [Milk of 2,400 mg PO DAILY PRN ml 12/13/17 Magnesia Concentrate] Naproxen [Naprosyn] 250 mg PO BID 30 Days #60 tab 12/13/17 Allergies Allergy/AdvReac Type Severity Reaction Status Date / Time No Known Allergies Allergy Verified 12/08/17 12:18 Review of Systems ROS Statement: Those systems with pertinent positive or pertinent negative responses have been documented in the HPI. ROS Other: All systems not noted in ROS Statement are negative. Past Medical History Past Medical History: No Reported History History of Any Multi-Drug Resistant Organisms: MRSA Date of last positivie culture/infection: 2010 MDRO Source:: left arm Past Surgical History: No Surgical Hx Reported Past Anesthesia/Blood Transfusion Reactions: No Reported Reaction Past Psychological History: Anxiety, Bipolar, PTSD Smoking Status: Current every day smoker Past Alcohol Use History: Occasional Past Drug Use History: Marijuana - Past Family History Mother Family Medical History: COPD Father Additional Family Medical History / Comment(s): alcohol abuse General Exam - General Exam Comments Initial Comments: Constitutional: NAD, AOX3, Pt has pleasant affect. HEENT: NC/AT, trachea midline, neck supple, no lymphadenopathy. Posterior pharynx non erythematous, without exudates. External ears appear normal, without discharge. Mucous membranes moist. Eyes PERRLA, EOM intact. Small abrasion noted on lower lip. There is no scleral icterus. No pallor noted. Cardiopulmonary: RRR, no murmurs, rubs or gallops, no JVD noted. Lungs CTAB in anterior and posterior arceo. No peripheral edema. Abdominal exam: Abdomen soft and non-distended. Abdomen non-tender to palpation in all 4 quadrants. Bowel sounds active in LLQ. No hepatosplenomegaly. No ecchymosis Neuro: CN II-XII intact. No nuchal rigidity. No cervical spine tenderness. MSK: No posterior calf tenderness bilaterally, homans sign negative bilaterally. Posterior tibialis and radial pulse +2 bilaterally. Sensation intact in upper and lower extremities. Full active ROM in upper and lower extremities, 5/5 stregnth. Limitations: no limitations Course Vital Signs 03/05/19 03/05/19 03/05/19 02:31 04:09 06:34 Temperature 97.6 F Pulse Rate 109 H 79 Respiratory 19 19 19 Rate Blood Pressure 140/94 127/78 O2 Sat by Pulse 95 98 Oximetry Medical Decision Making - Medical Decision Making 38-year-old male patient no pertinent past medical history presents to ED after sustaining a fall. Patient reports that he was drinking and while walking he fell forward was unable to catch himself, hitting his face on the ground. Patient was brought in to the hospital via police. Patient denies any other complaints. Patient denies any chest pain shortness breath abdominal pain naus ea vomiting diarrhea, fevers or chills. Patient denies any loss of consciousness. Denies any use of blood thinners. Pt VSS, afebrile. Physical exam displayed: CN II-XII intact. No nuchal rigidity. No cervical spine tenderness. Small abrasion noted on lower lip. Laboratory investigations revealed mild leukocytosis 11.3. CMP non-impressive. Lactic acid mildly elevated at 2.1. Alcohol elevated at 171. CT brain and C-spine without contrast displayed no acute process. CT facial bones displayed periorbital soft tissue injuries. These are not apparent on physical exam. Patient tetanus updated. Patient was signed out to and discharged by attending physician Dr. Garcia when sober. - Lab Data Result diagrams: 03/05/19 02:50 03/05/19 02:50 Lab Results 03/05/19 03/05/19 03/05/19 Range/Units 02:50 02:50 03:10 WBC 11.3 H (3.8-10.6) k/uL RBC 5.07 (4.30-5.90) m/uL Hgb 14.5 (13.0-17.5) gm/dL Hct 42.9 (39.0-53.0) % MCV 84.6 (80.0-100.0) fL MCH 28.6 (25.0-35.0) pg MCHC 33.8 (31.0-37.0) g/dL RDW 14.0 (11.5-15.5) % Plt Count 322 (150-450) k/uL Neutrophils % 75 % Lymphocytes % 19 % Monocytes % 4 % Eosinophils % 1 % Basophils % 1 % Neutrophils # 8.4 H (1.3-7.7) k/uL Lymphocytes # 2.1 (1.0-4.8) k/uL Monocytes # 0.5 (0-1.0) k/uL Eosinophils # 0.1 (0-0.7) k/uL Basophils # 0.1 (0-0.2) k/uL Sodium 144 (137-145) mmol/L Potassium 3.9 (3.5-5.1) mmol/L Chloride 111 H (98-107) mmol/L Carbon Dioxide 21 L (22-30) mmol/L Anion Gap 12 mmol/L BUN 8 L (9-20) mg/dL Creatinine 1.05 (0.66-1.25) mg/dL Est GFR (CKD-EPI)AfAm >90 (>60 ml/min/1.73 sqM) Est GFR (CKD-EPI)NonAf >90 (>60 ml/min/1.73 sqM) Glucose 99 (74-99) mg/dL Lactic Ac Sepsis Rflx Plasma Lactic Acid Joey 2.1 H* (0.7-2.0) mmol/L Calcium 9.8 (8.4-10.2) mg/dL Total Bilirubin 0.4 (0.2-1.3) mg/dL AST 32 (17-59) U/L ALT 35 (21-72) U/L Alkaline Phosphatase 67 (38-126) U/L Total Protein 7.0 (6.3-8.2) g/dL Albumin 4.6 (3.5-5.0) g/dL Serum Alcohol 171 mg/dL 03/05/19 Range/Units 04:24 WBC (3.8-10.6) k/uL RBC (4.30-5.90) m/uL Hgb (13.0-17.5) gm/dL Hct (39.0-53.0) % MCV (80.0-100.0) fL MCH (25.0-35.0) pg MCHC (31.0-37.0) g/dL RDW (11.5-15.5) % Plt Count (150-450) k/uL Neutrophils % % Lymphocytes % % Monocytes % % Eosinophils % % Basophils % % Neutrophils # (1.3-7.7) k/uL Lymphocytes # (1.0-4.8) k/uL Monocytes # (0-1.0) k/uL Eosinophils # (0-0.7) k/uL Basophils # (0-0.2) k/uL Sodium (137-145) mmol/L Potassium (3.5-5.1) mmol/L Chloride (98-107) mmol/L Carbon Dioxide (22-30) mmol/L Anion Gap mmol/L BUN (9-20) mg/dL Creatinine (0.66-1.25) mg/dL Est GFR (CKD-EPI)AfAm (>60 ml/min/1.73 sqM) Est GFR (CKD-EPI)NonAf (>60 ml/min/1.73 sqM) Glucose (74-99) mg/dL Lactic Ac Sepsis Rflx Y Plasma Lactic Acid Joey (0.7-2.0) mmol/L Calcium (8.4-10.2) mg/dL Total Bilirubin (0.2-1.3) mg/dL AST (17-59) U/L ALT (21-72) U/L Alkaline Phosphatase (38-126) U/L Total Protein (6.3-8.2) g/dL Albumin (3.5-5.0) g/dL Serum Alcohol mg/dL Disposition Clinical Impression: Fall Disposition: HOME SELF-CARE Condition: Stable Instructions (If sedation given, give patient instructions): Alcohol Intoxication (ED), Fall Prevention (ED) Is patient prescribed a controlled substance at d/c from ED?: No Referrals: Nonstaff,Physician [Primary Care Provider] - 1-2 days
[2019-03-05 03:37] LABS: Alcohol 171 mg/dL
[2019-03-05 06:39] VITALS: BP 127/78; PULSE 79
== END 2019-03-05 08:05 | disposition home or self-care (01) ==
LOC: EC 02:28
DX: S00.511A Abrasion of lip, initial encounter (principal); S05.90XA Unspecified injury of unspecified eye and orbit, initial encounter; D72.829 Elevated white blood cell count, unspecified; R74.0 Nonspecific elevation of levels of transaminase and lactic acid dehydrogenase [LDH]; F17.200 Nicotine dependence, unspecified, uncomplicated; Z86.14 Personal history of Methicillin resistant Staphylococcus aureus infection; Y90.6 Blood alcohol level of 120-199 mg/100 ml; Z81.1 Family history of alcohol abuse and dependence; Z23 Encounter for immunization; W01.0XXA Fall on same level from slipping, tripping and stumbling without subsequent striking against object, initial encounter; Y93.89 Activity, other specified; Y92.89 Other specified places as the place of occurrence of the external cause
CPT/HCPCS: 36415; 80053; 83605; 85025; 72125; 70486; 70450; 90715; 99284; 96374; 96361; 90471; G0480; J2405; 80320

== ENCOUNTER → 2020-03-25 | Outpatient (CLI) | payer OTHER ==
--- NOTE | 2020-03-25 11:18 | XR ---
EXAMINATION TYPE: XR cervical spine comp DATE OF EXAM: 03/25/2020 TECHNIQUE: Frontal, lateral, oblique, swimmers, and open mouth view of the cervical spine are obtaine d. HISTORY: R52 COMPARISON: CT cervical spine April 05, 2011 and March 05, 2019 FINDINGS: The cervical spine is visualized in its entirety from C1 thru the top of T1 level, there i s new grade 1 retrolisthesis C5 on C6 without lucency or fracture identified. Vertebral body heights and disc space height is fairly well-maintained. Oblique images within normal limits. Overlying soft tissue unremarkable. IMPRESSION: New grade 1 retrolisthesis C5 on C6.
--- NOTE | 2020-03-25 11:21 | XR ---
EXAMINATION TYPE: XR thoracic spine 2V DATE OF EXAM: 03/25/2020 CLINICAL HISTORY: Mid back pain. TECHNIQUE: Frontal, lateral, and swimmer's view of thoracic spine are obtained. COMPARISON: None. FINDINGS: Thoracic spine show satisfactory alignment without evidence of acute fracture or dislocatio n. Vertebral body heights and disc space heights are preserved. No significant spurring is seen. Vis ualized ribs are unremarkable bilaterally. IMPRESSION: As above.
--- NOTE | 2020-03-25 11:21 | XR ---
EXAMINATION TYPE: XR lumbosacral spine min 4V DATE OF EXAM: 03/25/2020 CLINICAL HISTORY: Low back pain. TECHNIQUE: Frontal, lateral, and oblique images of the lumbar spine are obtained. COMPARISON: MRI lumbar spine July 31, 2010 FINDINGS: There are 5 lumbar type vertebral bodies identified. The lumbar spine shows satisfactory alignment without evidence of acute fracture or dislocation. Vertebral body heights and disk space he ights are within normal limits. The oblique images appear within normal limits. The overlying soft tissue appears unremarkable. IMPRESSION: Unremarkable study. No significant change from prior MRI.
== END | disposition home or self-care (01) ==
LOC: RADXRMAIN 10:30
PROVIDERS: ATTEND Internal Medicine
DX: M43.12 Spondylolisthesis, cervical region (principal); R52 Pain, unspecified
CPT/HCPCS: 72050; 72070; 72110

== ENCOUNTER 2020-04-01 06:50 | Emergency (ER) | payer OTHER ==
[2020-04-01 06:57] VITALS: BP 160/99; PULSE 92; RESP 18; TEMP 98.1
[2020-04-01] MEDS ORDERED: LIDOCAINE 1% INJ 10MG/ML (20 ML MDV) SQ ONE (07:02)
--- NOTE | 2020-04-01 07:06 | ED ---
Wound/Laceration HPI - General Chief Complaint: Wound/Laceration Stated Complaint: finger lac Time Seen by Provider: 04/01/20 06:58 Source: patient, RN notes reviewed, old records reviewed Mode of arrival: ambulatory Limitations: no limitations - History of Present Illness Initial Comments: Patient states 39-year-old male who presents emergency department today for evaluation for laceration involving the right thumb. Patient reports that he was cutting a piece of plastic and the knife slipped cutting anterior aspect of the DIP of the thumb. Patient reports he has normal sensation distally. He does have full range of motion extension and flexion. Patient states that he has no diminished sensation distally. He reports his tetanus shot is up-to-date within the last 5 years. - Related Data Previous Rx's Medication Instructions Recorded ARIPiprazole [Abilify] 10 mg PO DAILY 30 Days #30 tab 12/13/17 Acetaminophen Tab [Tylenol] 650 mg PO Q4HR PRN tab 12/13/17 Divalproex ER [Depakote ER] 1,500 mg PO DAILY 30 Days #30 12/13/17 tab.er.24h Loratadine [Claritin] 10 mg PO DAILY 30 Days #30 tab 12/13/17 Mag Hydrox/Al Hydrox/Simeth 30 ml PO Q4HR PRN cup 12/13/17 [Maalox] Magnesium Hydroxide [Milk of 2,400 mg PO DAILY PRN ml 12/13/17 Magnesia Concentrate] Naproxen [Naprosyn] 250 mg PO BID 30 Days #60 tab 12/13/17 Allergies Allergy/AdvReac Type Severity Reaction Status Date / Time No Known Allergies Allergy Verified 12/08/17 12:18 Review of Systems ROS Statement: Those systems with pertinent positive or pertinent negative responses have been documented in the HPI. ROS Other: All systems not noted in ROS Statement are negative. Past Medical History Past Medical History: No Reported History History of Any Multi-Drug Resistant Organisms: MRSA Date of last positivie culture/infection: 2010 MDRO Source:: left arm Past Surgical History: No Surgical Hx Reported Past Anesthesia/Blood Transfusion Reactions: No Reported Reaction Past Psychological History: Anxiety, Bipolar, PTSD Smoking Status: Current every day smoker Past Alcohol Use History: Rare Past Drug Use History: Marijuana - Past Family History Mother Family Medical History: COPD Father Additional Family Medical History / Comment(s): alcohol abuse General Exam - General Exam Comments Initial Comments: Well-appearing 39-year-old male. No significant distress. Limitations: no limitations General appearance: alert, in no apparent distress Head exam: Present: atraumatic, normocephalic, normal inspection Eye exam: Present: normal appearance, PERRL, EOMI. Absent: scleral icterus, conjunctival injection, periorbital swelling ENT exam: Present: normal exam, mucous membranes moist Neck exam: Present: normal inspection. Absent: tenderness, meningismus, lymphadenopathy Respiratory exam: Present: normal lung sounds bilaterally. Absent: respiratory distress, wheezes, rales, rhonchi, stridor Cardiovascular Exam: Present: regular rate, normal rhythm, normal heart sounds. Absent: systolic murmur, diastolic murmur, rubs, gallop, clicks GI/Abdominal exam: Present: soft, normal bowel sounds. Absent: distended, tenderness, guarding, rebound, rigid Extremities exam: Present: normal inspection, full ROM, normal capillary refill. Absent: tenderness, pedal edema, joint swelling, calf tenderness Right Upper Arm exam: Present: normal inspection, full ROM Elbow exam: Present: normal inspection, full ROM Forearm Wrist exam: Present: normal inspection, full ROM Hand Wrist exam: Present: normal inspection, full ROM, laceration (Patient has a 3 cm flap laceration over the distal interphalangeal joint of the anterior aspec t of the left thumb.) Neuro motor exam: Present: wrist extension intact, thumb opposition intact, thumb IP flexion intact, thumb adduction intact Neurological exam: Present: alert, oriented X3, CN II-XII intact Psychiatric exam: Present: normal affect, normal mood Course Vital Signs 04/01/20 06:53 Temperature 98.1 F Pulse Rate 92 Respiratory 18 Rate Blood Pressure 160/99 O2 Sat by Pulse 93 L Oximetry Procedures - Laceration Laceration #1 Indication: laceration Site: hand (right thumb) Size (cm): 3 Description: flap Depth: simple, single layer Anesthetic Used: lidocaine 1% Anesthesia Technique: local infiltration Amount (mls): 4 Pre-repair: wound explored, irrigated extensively Type of Sutures: nylon Size of Sutures: 5-0 Number of Sutures: 5 Technique: simple, interrupted Patient Tolerated Procedure: well, no complications Medical Decision Making - Medical Decision Making Patient is a 39-year-old male presents emergency department today for evaluation for a laceration over the right thumb. He cut this on a knife while trying to cut a piece of plastic. Tetanus is up-to-date. Range of motion of the thumb. The laceration was thoroughly irrigated and closed with 5 sutures. Patient tolerated the procedure well. He does have full range of motion. Due to the patient's laceration being over the DIP Patient was placed in a splint. Disposition Clinical Impression: Thumb laceration Disposition: HOME SELF-CARE Condition: Good Instructions (If sedation given, give patient instructions): Laceration (ED) Additional Instructions: Please return to the emergency room in 8-10 days to have sutures removed. Please leave wound covered for the first 24-48 hours and then leave open to air after that time. Please use clean soap and water to clean the suture area to prevent scabbing over the top of your sutures. Please watch for any signs of infection which may include but not limited to increased pain, swelling, redness, fever or chills. Please return to the emergency room if any signs of infection do occur. Please return to the emergency room for any other concerns or complications. Is patient prescribed a controlled substance at d/c from ED?: No Referrals: Whiteny Almanzar MD [Primary Care Provider] - 1-2 days Time of Disposition: 07:32
== END 2020-04-01 07:38 | disposition home or self-care (01) ==
LOC: EC 06:50
DX: S61.011A Laceration without foreign body of right thumb without damage to nail, initial encounter (principal); F17.200 Nicotine dependence, unspecified, uncomplicated; W26.0XXA Contact with knife, initial encounter
CPT/HCPCS: 99283; 12002; J2001

== ENCOUNTER 2020-06-11 21:49 | Emergency (ER) | payer OTHER ==
[2020-06-11 21:58] VITALS: BP 181/92; PULSE 97; RESP 16; TEMP 98.8
[2020-06-11] MEDS ORDERED: dexAMETHasone 4 MG TAB PO STA (22:23)
[2020-06-11] MEDS ORDERED: ACET/COD 300 MG/30 MG STARTER PACK 6 TAB BTL PO STA (22:23)
[2020-06-11] MEDS ORDERED: AMOXIC-POT CLAV 875MG STARTER PACK 2 TAB BTL PO STA (22:23)
--- NOTE | 2020-06-11 22:37 | ED ---
General Adult HPI - General Chief complaint: ENT Stated complaint: Throat Pain Time Seen by Provider: 06/11/20 21:59 Source: patient, RN notes reviewed Mode of arrival: ambulatory Limitations: no limitations - History of Present Illness Initial comments: 39-year-old male presents to the emergency room for a chief complaint of sore throat. Patient reports he has had a sore throat for 3 days now. States it is worse on the right side. Patient states it is very painful to swallow however denies difficulty swallowing. patient states his right side of his neck is also tender and swollen. He denies fevers or chills. Denies neck stiffness.patient has not taken anything for pain.Patient has no other complaints at this time including shortness of breath, chest pain, abdominal pain, nausea or vomiting, headache, or visual changes. - Related Data Previous Rx's Medication Instructions Recorded ARIPiprazole [Abilify] 10 mg PO DAILY 30 Days #30 tab 12/13/17 Acetaminophen Tab [Tylenol] 650 mg PO Q4HR PRN tab 12/13/17 Divalproex ER [Depakote ER] 1,500 mg PO DAILY 30 Days #30 12/13/17 tab.er.24h Loratadine [Claritin] 10 mg PO DAILY 30 Days #30 tab 12/13/17 Mag Hydrox/Al Hydrox/Simeth 30 ml PO Q4HR PRN cup 12/13/17 [Maalox] Magnesium Hydroxide [Milk of 2,400 mg PO DAILY PRN ml 12/13/17 Magnesia Concentrate] Naproxen [Naprosyn] 250 mg PO BID 30 Days #60 tab 12/13/17 Amoxicillin/Potassium Clav 1 tab PO Q12HR #20 tab 06/11/20 [Augmentin 875-125 Tablet] Allergies Allergy/AdvReac Type Severity Reaction Status Date / Time No Known Allergies Allergy Verified 06/11/20 21:58 Review of Systems ROS Statement: Those systems with pertinent positive or pertinent negative responses have been documented in the HPI. ROS Other: All systems not noted in ROS Statement are negative. Past Medical History Past Medical History: No Reported History History of Any Multi-Drug Resistant Organisms: MRSA Date of last positivie culture/infection: 2010 MDRO Source:: left arm Past Surgical History: No Surgical Hx Reported Past Anesthesia/Blood Transfusion Reactions: No Reported Reaction Past Psychological History: Anxiety, Bipolar, PTSD Smoking Status: Current every day smoker Past Alcohol Use History: Rare Past Drug Use History: Marijuana - Past Family History Mother Family Medical History: COPD Father Additional Family Medical History / Comment(s): alcohol abuse General Exam Limitations: no limitations General appearance: alert, in no apparent distress Head exam: Present: atraumatic, normocephalic, normal inspection Eye exam: Present: normal appearance, PERRL, EOMI. Absent: scleral icterus, conjunctival injection, periorbital swelling ENT exam: Present: normal exam, mucous membranes moist, TM's normal bilaterally, normal external ear exam. Absent: normal oropharynx (uvula midline, no tonsillar exudates bilaterally. No evidence of peritonsillar abscess. Tonsillar pillars are symmetric. however beefy red appearance of oropharynx consistent with strep pharyngitis. Oropharynx is patent.), other (no trismus. No difficulty swallowing. Handling oral secretions. No stridor.) Neck exam: Present: normal inspection, full ROM, lymphadenopathy (tender submandibular lymph node noted of the right side. There is no edema of the neck.). Absent: tenderness, meningismus Respiratory exam: Present: normal lung sounds bilaterally. Absent: respiratory distress, wheezes, rales, rhonchi, stridor Cardiovascular Exam: Present: regular rate, normal rhythm, normal heart sounds. Absent: systolic murmur, diastolic murmur, rubs, gallop, clicks GI/Abdominal exam: Present: soft, normal bowel sounds. Absent: distended, tenderness, guarding, rebound, rigid Course Vital Signs 06/11/20 21:54 Temperature 98.8 F Pulse Rate 97 Respiratory 16 Rate Blood Pressure 181/92 O2 Sat by Pulse 99 Oximetry Medical Decision Making - Medical Decision Making HPI and physical exam is documented. Patient will be clinically treated for strep throat with Augmentin and Decadron. He was given a short course of Tylenol 3 for pain. He will follow up with his doctor in one to 2 days. He was also given referral to ENT. I discussed return parameters with patient which he is agreeable to. I discussed that symptoms are not improving within 2 days he must return. patient is hypertensive in the emergency room which is likely secondary to pain however he will follow up with his doctor for a recheck. Disposition Clinical Impression: Pharyngitis Disposition: HOME SELF-CARE Condition: Good Instructions (If sedation given, give patient instructions): Strep Throat (ED) Additional Instructions: please take Motrin and Tylenol for pain. If pain is severe take Tylenol 3. Take antibiotic as directed. If symptoms are not improving within 2 days you need to return to the emergency room. Otherwise follow-up with primary care in ENT. Prescriptions: Amoxicillin/Potassium Clav [Augmentin 875-125 Tablet] 1 tab PO Q12HR #20 tab Is patient prescribed a controlled substance at d/c from ED?: No Referrals: Whitney Almanzar MD [Primary Care Provider] - 1-2 days Moe Diaz MD [STAFF PHYSICIAN] - 1-2 days Time of Disposition: 22:36
== END 2020-06-11 22:56 | disposition home or self-care (01) ==
LOC: EC 21:49
DX: J02.9 Acute pharyngitis, unspecified (principal); I10 Essential (primary) hypertension; F41.9 Anxiety disorder, unspecified; F31.9 Bipolar disorder, unspecified; F17.200 Nicotine dependence, unspecified, uncomplicated; Z86.14 Personal history of Methicillin resistant Staphylococcus aureus infection; Z79.899 Other long term (current) drug therapy
CPT/HCPCS: 99282; J8540

== ENCOUNTER 2020-06-14 12:20 | Emergency (ER) | payer OTHER ==
[2020-06-14 12:26] LABS: Glucose,Whole Blood 106 mg/dL (75-99)
[2020-06-14 12:29] VITALS: BP 141/96; PULSE 76; RESP 16; TEMP 98
--- NOTE | 2020-06-14 12:38 | ED ---
Altered Mental Status HPI - General Chief Complaint: Altered Mental Status Stated Complaint: poss overdose Time Seen by Provider: 06/14/20 12:20 Source: patient, EMS, RN notes reviewed Mode of arrival: EMS Limitations: no limitations - History of Present Illness Initial Comments: This is a 39-year-old male with a benign past medical history was found un responsive in his automobile just prior to arrival by EMS. He states he just got shopping a local store and was not sure what exactly happened. He states he was getting ready to smoke a blunt. He denies any fevers chills nausea vomiting sweats head or neck or back pain palpitations. His blood glucose level was 105 per paramedics. He has no family history of passing out no family history of he art disease that he is aware of. The patient has. Cooperative with answering questions and does appear irritated. He is awake and alert. MD Complaint: decreased responsiveness - Related Data Previous Rx's Medication Instructions Recorded ARIPiprazole [Abilify] 10 mg PO DAILY 30 Days #30 tab 12/13/17 Acetaminophen Tab [Tylenol] 650 mg PO Q4HR PRN tab 12/13/17 Divalproex ER [Depakote ER] 1,500 mg PO DAILY 30 Days #30 12/13/17 tab.er.24h Loratadine [Claritin] 10 mg PO DAILY 30 Days #30 tab 12/13/17 Mag Hydrox/Al Hydrox/Simeth 30 ml PO Q4HR PRN cup 12/13/17 [Maalox] Magnesium Hydroxide [Milk of 2,400 mg PO DAILY PRN ml 12/13/17 Magnesia Concentrate] Naproxen [Naprosyn] 250 mg PO BID 30 Days #60 tab 12/13/17 Amoxicillin/Potassium Clav 1 tab PO Q12HR #20 tab 06/11/20 [Augmentin 875-125 Tablet] Allergies Allergy/AdvReac Type Severity Reaction Status Date / Time No Known Allergies Allergy Verified 06/14/20 12:24 Review of Systems ROS Statement: Those systems with pertinent positive or pertinent negative responses have been documented in the HPI. ROS Other: All systems not noted in ROS Statement are negative. Past Medical History Past Medical History: No Reported History History of Any Multi-Drug Resistant Organisms: MRSA Date of last positivie culture/infection: 2010 MDRO Source:: left arm Past Surgical History: No Surgical Hx Reported Past Anesthesia/Blood Transfusion Reactions: No Reported Reaction Past Psychological History: Anxiety, Bipolar, PTSD Smoking Status: Current every day smoker Past Alcohol Use History: Rare Past Drug Use History: Marijuana - Past Family History Mother Family Medical History: COPD Father Additional Family Medical History / Comment(s): alcohol abuse General Exam - General Exam Comments Initial Comments: This is a well-developed well-nourished awake alert oriented 4 patient Limitations: no limitations General appearance: alert, in no apparent distress, other (Patient does appear very irritated and is uncooperative with the workup other than he did allow a physical exam) Head exam: Present: atraumatic, normocephalic, normal inspection Eye exam: Present: normal appearance, PERRL, EOMI. Absent: scleral icterus, conjunctival injection, periorbital swelling ENT exam: Present: normal exam, mucous membranes moist Neck exam: Present: normal inspection, full ROM, other (No stridor JVD or bruits). Absent: tenderness, meningismus, lymphadenopathy Respiratory exam: Present: normal lung sounds bilaterally. Absent: respiratory distress, wheezes, rales, rhonchi, stridor Cardiovascular Exam: Present: regular rate, normal rhythm, normal heart sounds. Absent: systolic murmur, diastolic murmur, rubs, gallop, clicks GI/Abdominal exam: Present: soft, normal bowel sounds. Absent: distended, tenderness, guarding, rebound, rigid Extremities exam: Present: normal inspection, full ROM, normal capillary refill. Absent: tenderness, pedal edema, joint swelling, calf tenderness Back exam: Present: normal inspection Neurological exam: Present: alert, oriented X3, CN II-XII intact Psychiatric exam: Present: agitated, other (Patient is agitated somewhat demonstrating antisocial behavior at this time not wanting to answer questions. He is demonstrating rude behavior to staff members) Skin exam: Present: warm, dry, intact, normal color. Absent: rash Course Vital Signs 06/14/20 12:24 Temperature 98.0 F Pulse Rate 76 Respiratory 16 Rate Blood Pressure 141/96 O2 Sat by Pulse 98 Oximetry Medical Decision Making - Medical Decision Making The patient refused any further workup he was awake alert oriented 4 he did demonstrate decision making capacity he did leave before any testing to be performed. The patient was they have ultra mental status/syncope-type workup he left before the orders. Be put in. - Lab Data Lab Results 06/14/20 Range/Units 12:24 POC Glucose (mg/dL) 106 H (75-99) mg/dL POC Glu Vamp Wetter ID Amari Jarvis Disposition Clinical Impression: Syncope and collapse Disposition: Left Against Medical Advice Referrals: Whitney Almanzar MD [Primary Care Provider] - 1-2 days
== END 2020-06-14 12:28 | disposition left against medical advice (07) ==
LOC: EC 12:20
DX: R55 Syncope and collapse (principal); R45.1 Restlessness and agitation; F17.200 Nicotine dependence, unspecified, uncomplicated; Z86.14 Personal history of Methicillin resistant Staphylococcus aureus infection; Z53.29 Procedure and treatment not carried out because of patient's decision for other reasons; Z72.811 Adult antisocial behavior
CPT/HCPCS: 36415; 99285

== ENCOUNTER 2020-06-19 01:35 | Emergency (ER) | payer OTHER ==
[2020-06-19 01:46] VITALS: BP 152/87; PULSE 82; RESP 18; TEMP 98.5
[2020-06-19] MEDS ORDERED: KETOROLAC 15 MG/ML 1 ML VIAL IM STA (02:29)
--- NOTE | 2020-06-19 02:31 | ED ---
Upper Extremity HPI - General Chief Complaint: Extremity Injury, Upper Stated Complaint: left shoulder pain Time Seen by Provider: 06/19/20 01:55 Source: patient, RN notes reviewed, old records reviewed Mode of arrival: ambulatory Limitations: no limitations - History of Present Illness Initial Comments: Patient is a 39-year-old male presents returns today with chief complaint of left shoulder pain. Patient reports that he body slammed in metal clothing rack one week ago. He reports that he came to the emergency department complaining has had persistent pain. He has not taken Motrin Tylenol for pain. Patient reports pain with range of motion and lifting his arm above his head. He states that he has no elbow or wrist pain. Patient states that he is left-handed. - Related Data Previous Rx's Medication Instructions Recorded ARIPiprazole [Abilify] 10 mg PO DAILY 30 Days #30 tab 12/13/17 Acetaminophen Tab [Tylenol] 650 mg PO Q4HR PRN tab 12/13/17 Divalproex ER [Depakote ER] 1,500 mg PO DAILY 30 Days #30 12/13/17 tab.er.24h Loratadine [Claritin] 10 mg PO DAILY 30 Days #30 tab 12/13/17 Mag Hydrox/Al Hydrox/Simeth 30 ml PO Q4HR PRN cup 12/13/17 [Maalox] Magnesium Hydroxide [Milk of 2,400 mg PO DAILY PRN ml 12/13/17 Magnesia Concentrate] Naproxen [Naprosyn] 250 mg PO BID 30 Days #60 tab 12/13/17 Amoxicillin/Potassium Clav 1 tab PO Q12HR #20 tab 06/11/20 [Augmentin 875-125 Tablet] Ibuprofen [Motrin] 600 mg PO Q8HR PRN #20 tab 06/19/20 Allergies Allergy/AdvReac Type Severity Reaction Status Date / Time No Known Allergies Allergy Verified 06/19/20 01:46 Review of Systems ROS Statement: Those systems with pertinent positive or pertinent negative responses have been documented in the HPI. ROS Other: All systems not noted in ROS Statement are negative. Past Medical History Past Medical History: No Reported History History of Any Multi-Drug Resistant Organisms: MRSA Date of last positivie culture/infection: 2010 MDRO Source:: left arm Past Surgical History: No Surgical Hx Reported Past Anesthesia/Blood Transfusion Reactions: No Reported Reaction Past Psychological History: Anxiety, Bipolar, PTSD Smoking Status: Current every day smoker Past Alcohol Use History: Rare Past Drug Use History: Marijuana - Past Family History Mother Family Medical History: COPD Father Additional Family Medical History / Comment(s): alcohol abuse General Exam - General Exam Comments Initial Comments: 39-year-old male. Alert and oriented 3. No significant distress. Limitations: no limitations General appearance: alert, in no apparent distress Head exam: Present: atraumatic, normocephalic, normal inspection Eye exam: Present: normal appearance, PERRL, EOMI. Absent: scleral icterus, conjunctival injection, periorbital swelling ENT exam: Present: normal exam, mucous membranes moist Neck exam: Present: normal inspection. Absent: tenderness, meningismus, lymphadenopathy Respiratory exam: Present: normal lung sounds bilaterally. Absent: respiratory distress, wheezes, rales, rhonchi, stridor Cardiovascular Exam: Present: regular rate, normal rhythm, normal heart sounds. Absent: systolic murmur, diastolic murmur, rubs, gallop, clicks GI/Abdominal exam: Present: soft, normal bowel sounds. Absent: distended, tenderness, guarding, rebound, rigid Extremities exam: Present: normal inspection, full ROM, normal capillary refill. Absent: tenderness, pedal edema, joint swelling, calf tenderness Left Shoulder Exam: Present: full ROM, tenderness (over AC joint), swelling, tenderness over AC joint. Absent: normal inspection Upper Arm exam: Present: normal inspection, full ROM Elbow exam: Present: normal inspection, full ROM Forearm Wrist exam: Present: normal inspection, full ROM Hand Wrist exam: Present: normal inspection, full ROM Vascular: Present: normal capillary refill Back exam: Present: normal inspection Neurological exam: Present: alert, oriented X3, CN II-XII intact Psychiatric exam: Present: normal affect, normal mood Skin exam: Present: warm, dry, intact, normal color. Absent: rash Course Vital Signs 06/19/20 01:44 Temperature 98.5 F Pulse Rate 82 Respiratory 18 Rate Blood Pressure 152/87 O2 Sat by Pulse 98 Oximetry Medical Decision Making - Medical Decision Making 39 year old male with one week of left shoulder pain, AC tenderness after injury. Pain is reproducible with shoulder extension. Patient advised to follow up with ortho as shoulder xray is normal and discussed sprain vs ligamentus injury. Discussed close PCP follow up. - Radiology Data Radiology results: report reviewed Normal L shoulder xray. Disposition Clinical Impression: Shoulder pain, left, AC joint pain Disposition: HOME SELF-CARE Condition: Good Instructions (If sedation given, give patient instructions): Shoulder Pain (ED) Additional Instructions: Patient is to rest the shoulder and apply ice for 20 minutes 3 to 4 times a day. Take anti-inflammatory medication for pain. Patient advised to have follow-up with orthopedic symptoms continue to persist despite medication. Prescriptions: Ibuprofen [Motrin] 600 mg PO Q8HR PRN #20 tab PRN Reason: Pain Is patient prescribed a controlled substance at d/c from ED?: No Referrals: Whitney Almanzar MD [Primary Care Provider] - 1-2 days Justin Bermeo MD [STAFF PHYSICIAN] - 1-2 days Time of Disposition: 02:43
--- NOTE | 2020-06-19 02:33 | XR ---
EXAMINATION TYPE: XR shoulder complete LT DATE OF EXAM: 06/19/2020 COMPARISON: NONE HISTORY: Shoulder pain TECHNIQUE: 3 views FINDINGS: I see no fracture nor dislocation. Joint spaces are normal. There are no pathologic calcifi cations. IMPRESSION: Negative left shoulder exam.
[2020-06-19] MEDS ORDERED: IBUPROFEN 600 MG STARTER PACK 4 TAB BTL PO STA (02:49)
== END 2020-06-19 03:00 | disposition home or self-care (01) ==
LOC: EC 01:35
DX: S49.92XA Unspecified injury of left shoulder and upper arm, initial encounter (principal); F17.200 Nicotine dependence, unspecified, uncomplicated; W22.8XXA Striking against or struck by other objects, initial encounter
CPT/HCPCS: 73030; 99284; 96372; J1885

== ENCOUNTER 2021-05-04 01:18 | Emergency (ER) | payer OTHER ==
[2021-05-04 01:27] VITALS: BP 134/80; PULSE 83; RESP 18; TEMP 98
--- NOTE | 2021-05-04 01:36 | ED ---
Wound/Laceration HPI - General Chief Complaint: Wound/Laceration Stated Complaint: Rt thumb injury Time Seen by Provider: 05/04/21 01:30 Source: patient Mode of arrival: ambulatory - History of Present Illness Initial Comments: 40-year-old male presents to emergency room with a chief complaint laceration. This occurred several days ago while he was sharpening a knife on the right thumb. It is located on the dorsum. Patient reports his tetanus is up-to-date. Reports increasing pain with some yellow discharge over the last several days. Reports mild surrounding erythema. Denies any fevers or chills. - Related Data Previous Rx's Medication Instructions Recorded ARIPiprazole [Abilify] 10 mg PO DAILY 30 Days #30 tab 12/13/17 Acetaminophen Tab [Tylenol] 650 mg PO Q4HR PRN tab 12/13/17 Divalproex ER [Depakote ER] 1,500 mg PO DAILY 30 Days #30 12/13/17 tab.er.24h Loratadine [Claritin] 10 mg PO DAILY 30 Days #30 tab 12/13/17 Mag Hydrox/Al Hydrox/Simeth 30 ml PO Q4HR PRN cup 12/13/17 [Maalox] Magnesium Hydroxide [Milk of 2,400 mg PO DAILY PRN ml 12/13/17 Magnesia Concentrate] Naproxen [Naprosyn] 250 mg PO BID 30 Days #60 tab 12/13/17 Amoxicillin/Potassium Clav 1 tab PO Q12HR #20 tab 06/11/20 [Augmentin 875-125 Tablet] Ibuprofen [Motrin] 600 mg PO Q8HR PRN #20 tab 06/19/20 Cephalexin [Keflex] 500 mg PO Q6HR #40 cap 05/04/21 Sulfamethox-Tmp 800-160Mg [Bactrim 1 each PO Q12HR #20 tab 05/04/21 Ds] Allergies Allergy/AdvReac Type Severity Reaction Status Date / Time No Known Allergies Allergy Verified 05/04/21 01:27 Review of Systems ROS Statement: Those systems with pertinent positive or pertinent negative responses have been documented in the HPI. ROS Other: All systems not noted in ROS Statement are negative. Past Medical History Past Medical History: No Reported History History of Any Multi-Drug Resistant Organisms: MRSA Date of last positivie culture/infection: 2010 MDRO Source:: left arm Past Surgical History: No Surgical Hx Reported Past Anesthesia/Blood Transfusion Reactions: No Reported Reaction Past Psychological History: Anxiety, Bipolar, PTSD Smoking Status: Current every day smoker Past Alcohol Use History: Rare Past Drug Use History: Marijuana - Past Family History Mother Family Medical History: COPD Father Additional Family Medical History / Comment(s): alcohol abuse General Exam Limitations: no limitations General appearance: alert, in no apparent distress Head exam: Present: atraumatic, normocephalic, normal inspection Eye exam: Present: normal appearance, PERRL, EOMI Pupils: Present: normal accommodation ENT exam: Present: normal exam, normal oropharynx, mucous membranes moist Neck exam: Present: normal inspection, full ROM. Absent: tenderness Respiratory exam: Present: normal lung sounds bilaterally. Absent: respiratory distress Cardiovascular Exam: Present: regular rate, normal rhythm, normal heart sounds. Absent: systolic murmur Extremities exam: Present: full ROM, tenderness (Tenderness at the laceration site), normal capillary refill. Absent: normal inspection (1 cm laceration on the dorsal aspect of her right thumb. Yellow discharge noted. Mouth surrounding erythema. No lymphangitis), pedal edema, joint swelling, calf tenderness Back exam: Present: normal inspection, full ROM. Absent: tenderness Neurological exam: Present: alert, oriented X3 Psychiatric exam: Present: normal affect, normal mood Skin exam: Present: warm, dry, intact, normal color Course Vital Signs 05/04/21 01:23 Temperature 98 F Pulse Rate 83 Respiratory 18 Rate Blood Pressure 134/80 O2 Sat by Pulse 98 Oximetry Medical Decision Making - Medical Decision Making 32-year-old male presents to the emergency department with a chief complaint of laceration. on Physical examination, it looks like he has an affect the laceration site. No laceration repair because it has been several days. He was started on Bactrim and Keflex and will be discharged this medication. Advised to follow with PCP. Case discussed with physician. Disposition Clinical Impression: Laceration, Infected wound Disposition: HOME SELF-CARE Condition: Stable Instructions (If sedation given, give patient instructions): Wound Infection (DC) Additional Instructions: Take prescribed medication as directed. Return to emergency department if symptoms worsen. Prescriptions: Sulfamethox-Tmp 800-160Mg [Bactrim Ds] 1 each PO Q12HR #20 tab Cephalexin [Keflex] 500 mg PO Q6HR #40 cap Is patient prescribed a controlled substance at d/c from ED?: No Referrals: Whitney Almanzar MD [Primary Care Provider] - 1-2 days Time of Disposition: 01:42
[2021-05-04] MEDS ORDERED: CEPHALEXIN 500 MG CAP PO STA (01:41)
[2021-05-04] MEDS ORDERED: SULFAMETHOX-TMP 800-160MG 1 EACH TAB PO STA (01:41)
== END 2021-05-04 01:53 | disposition home or self-care (01) ==
LOC: EC 01:18
DX: S61.011A Laceration without foreign body of right thumb without damage to nail, initial encounter (principal); F17.200 Nicotine dependence, unspecified, uncomplicated; W26.0XXA Contact with knife, initial encounter; Y93.89 Activity, other specified
CPT/HCPCS: 99282

== ENCOUNTER 2021-06-23 05:43 | Emergency (ER) | payer OTHER ==
[2021-06-23 05:51] VITALS: TEMP 97.9
--- NOTE | 2021-06-23 06:15 | ED ---
Psych HPI - General Source: patient, RN notes reviewed, Caregiver Mode of arrival: ambulatory Limitations: no limitations - History of Present Illness MD Complaint: suicidal ideation, feels depressed -: unknown Associated Psychiatric Symptoms: depression, suicidal ideation, auditory hallucinations History of same: Yes Quality: intermittent Improves With: none Worsens With: none Associated Symptoms: denies other symptoms Treatments Prior to Arrival: placed on mental health hold <Grzegorz Méndez - Last Filed: 06/23/21 06:58> <Galilea Howard - Last Filed: 06/23/21 15:10> - General Chief Complaint: Psychiatric Symptoms Stated Complaint: Mental Health Time Seen by Provider: 06/23/21 05:45 - History of Present Illness Initial Comments: This is a 40-year-old male to the emergency department today. Patient presents under is normal for psychiatric evaluation states he needs mental health evaluation. Patient medical history takes no medications denying current drug or alcohol abuse. Patient states he is suicidal and does want to kill himself. No plan (Grzegorz Méndez) - Related Data Home Medications Medication Instructions Recorded Confirmed No Known Home Medications 06/23/21 06/23/21 Allergies Allergy/AdvReac Type Severity Reaction Status Date / Time No Known Allergies Allergy Verified 06/23/21 10:14 Review of Systems ROS Other: All systems not noted in ROS Statement are negative. <Grzegorz Méndez - Last Filed: 06/23/21 06:58> ROS Other: All systems not noted in ROS Statement are negative. <Galilea Howard - Last Filed: 06/23/21 15:10> ROS Statement: Those systems with pertinent positive or pertinent negative responses have been documented in the HPI. Past Medical History Past Medical History: No Reported History History of Any Multi-Drug Resistant Organisms: MRSA Date of last positivie culture/infection: 2010 MDRO Source:: left arm Past Surgical History: No Surgical Hx Reported Past Anesthesia/Blood Transfusion Reactions: No Reported Reaction Past Psychological History: Anxiety, Bipolar, PTSD Smoking Status: Current every day smoker Past Alcohol Use History: Rare Past Drug Use History: Marijuana - Past Family History Mother Family Medical History: COPD Father Additional Family Medical History / Comment(s): alcohol abuse <Grzegorz Méndez - Last Filed: 06/23/21 06:58> General Exam Limitations: no limitations General appearance: alert, in no apparent distress Head exam: Present: atraumatic, normocephalic, normal inspection Eye exam: Present: normal appearance, PERRL, EOMI. Absent: scleral icterus, conjunctival injection, periorbital swelling ENT exam: Present: normal exam, mucous membranes moist Neck exam: Present: normal inspection. Absent: tenderness, meningismus, lymphadenopathy Respiratory exam: Present: normal lung sounds bilaterally. Absent: respiratory distress, wheezes, rales, rhonchi, stridor Cardiovascular Exam: Present: regular rate, normal rhythm, normal heart sounds. Absent: systolic murmur, diastolic murmur, rubs, gallop, clicks GI/Abdominal exam: Present: soft, normal bowel sounds. Absent: distended, tenderness, guarding, rebound, rigid Extremities exam: Present: normal inspection, full ROM, normal capillary refill. Absent: tenderness, pedal edema, joint swelling, calf tenderness Back exam: Present: normal inspection Neurological exam: Present: alert, oriented X3, CN II-XII intact Psychiatric exam: Present: normal affect, normal mood Skin exam: Present: warm, dry, intact, normal color. Absent: rash <Grzegorz Méndez - Last Filed: 06/23/21 06:58> Course <Grzegorz Méndez - Last Filed: 06/23/21 06:58> Vital Signs 06/23/21 06/23/21 05:46 13:07 Temperature 97.9 F Pulse Rate 85 78 Respiratory 20 18 Rate Blood Pressure 144/82 132/75 O2 Sat by Pulse 98 99 Oximetry - Reevaluation(s) Reevaluation #1: 06/23/21 06:15 Medical record is reviewed 06/23/21 06:15 Medical clear for psychiatric evaluation (Grzegorz Méndez) Medical Decision Making <Grzegorz Méndez - Last Filed: 06/23/21 06:58> <Galilea Howard - Last Filed: 06/23/21 15:10> - Medical Decision Making 40 male with coming agitated with no cell phone, patient states is not suicidal he has is homeless and want to get off the streets. Patient given cell phone and can be discharged home (Roskopp,Grzegorz B) I became involved in the patient's care. The patient made some suicidal statements with a plan to overdose and requested a mental health evaluation. Patient was upset that he could not have his phone and therefore was threatening to leave. I did attempt to reason with the patient however he did admit to me recent suicidal thoughts with a plan. I informed patient that he would be sedated if he attempted to leave for which the patient stated that he wanted it to happen. Haldol 5 mg, Ativan 2 mg and Benadryl 50 mg IM was ordered. Patient agreed to take the medications and did not require restraints at this time. He is pending EPS evaluation. The patient was evaluated by EPS. Safety plan was filled out. Patient stable for discharge home at this time. Asked to return for any new or worsening symptoms (Galilea Howard) - Lab Data Lab Results 06/23/21 Range/Units 08:50 Coronavirus (PCR) Not Detected (Not Detectd) Disposition Is patient prescribed a controlled substance at d/c from ED?: No <Grzegorz Méndez - Last Filed: 06/23/21 06:58> Time of Disposition: 13:04 <Galilea Howard - Last Filed: 06/23/21 15:10> Clinical Impression: Antisocial personality disorder, Bipolar disorder, unspecified, Depression Disposition: HOME SELF-CARE Condition: Fair Instructions (If sedation given, give patient instructions): Depression (ED) Referrals: Whitney Almanzar MD [Primary Care Provider] - 1-2 days
[2021-06-23] MEDS ORDERED: HALOPERIDOL LACTATE 5 MG/ML 1 ML VIAL IM PRN (07:28)
[2021-06-23] MEDS ORDERED: LORazepam 2 MG/ML INJ IM STA (07:29)
[2021-06-23] MEDS ORDERED: diphenhydrAMINE 50 MG/ML 1 ML VIAL IM STA (07:30)
[2021-06-23 13:08] VITALS: BP 132/75; PULSE 78; RESP 18
== END 2021-06-23 13:30 | disposition home or self-care (01) ==
LOC: EC 05:43
DX: R45.851 Suicidal ideations (principal); R44.0 Auditory hallucinations; F60.2 Antisocial personality disorder; F32.9 Major depressive disorder, single episode, unspecified; F17.200 Nicotine dependence, unspecified, uncomplicated; Z20.822 Contact with and (suspected) exposure to COVID-19
CPT/HCPCS: 82075; 87635; 99284; 96372 ×2; J2060; J1200

== ENCOUNTER 2021-08-01 07:54 | Emergency (ER) | payer OTHER ==
[2021-08-01 07:58] VITALS: RESP 18; TEMP 97.7
[2021-08-01] MEDS ORDERED: LIDOCAINE 1% INJ 10MG/ML (20 ML MDV) SQ ONE (07:59)
[2021-08-01] MEDS ORDERED: IBUPROFEN 600 MG TAB PO STA (08:08)
--- NOTE | 2021-08-01 08:08 | ED ---
Wound/Laceration HPI - General Chief Complaint: Wound/Laceration Stated Complaint: Rt Finger Lac Time Seen by Provider: 08/01/21 07:59 Source: patient, RN notes reviewed Mode of arrival: ambulatory Limitations: no limitations - History of Present Illness Initial Comments: Patient's 40-year-old male presented to the ED for laceration to second digit knuckle. Patient states that he was washing a coffee cup when he had come inside of the sink causing it to chip off, cutting the dorsal side of his right hand. Patient states that happened today around 6:00am initially was able to stop the bleeding with direct pressure. Patient states that he had tetanus booster last year. Patient states that 10 pain with any movement. Patient denies any numbness tingling or loss of feeling of the affected digit. - Related Data Home Medications Medication Instructions Recorded Confirmed No Known Home Medications 06/23/21 06/23/21 Allergies Allergy/AdvReac Type Severity Reaction Status Date / Time No Known Allergies Allergy Verified 08/01/21 07:55 Review of Systems ROS Statement: Those systems with pertinent positive or pertinent negative responses have been documented in the HPI. ROS Other: All systems not noted in ROS Statement are negative. Past Medical History Past Medical History: No Reported History History of Any Multi-Drug Resistant Organisms: MRSA Date of last positivie culture/infection: 2010 MDRO Source:: left arm Past Surgical History: No Surgical Hx Reported Past Anesthesia/Blood Transfusion Reactions: No Reported Reaction Past Psychological History: Anxiety, Bipolar, PTSD Smoking Status: Current every day smoker Past Alcohol Use History: None Reported Past Drug Use History: Marijuana - Past Family History Mother Family Medical History: COPD Father Additional Family Medical History / Comment(s): alcohol abuse General Exam Limitations: no limitations General appearance: alert, in no apparent distress Neck exam: Present: normal inspection. Absent: tenderness, meningismus, lymphadenopathy Respiratory exam: Present: normal lung sounds bilaterally. Absent: respiratory distress, wheezes, rales, rhonchi, stridor Extremities exam: Present: other (Right hand second MCP 2 cm flap laceration, full strength and full range of motion no tendon involvement) Course Vital Signs 08/01/21 07:55 Temperature 97.7 F Pulse Rate 80 Respiratory 18 Rate Blood Pressure 141/92 O2 Sat by Pulse 98 Oximetry Procedures - Laceration Laceration #1 Consent Obtained: verbal consent Indication: laceration Site: hand (Right 2nd digit dorsal MCP) Description: flap Depth: simple, single layer Sedation/Analgesia: none Anesthetic Used: lidocaine 1% Anesthesia Technique: local infiltration Amount (mls): 6 Pre-repair: irrigated extensively Type of Sutures: nylon Size of Sutures: 4-0 Number of Sutures: 4 Technique: simple, interrupted Patient Tolerated Procedure: well Medical Decision Making - Medical Decision Making Patient presented with laceration to second digit knuckle, wound site was irrigated and cleaned. Patient was numbed with lidocaine and 4 stitches were placed closing laceration. Patient was educated on pain management with ibuprofen and acetaminophen. Return parameters were discussed. - Differential Diagnosis laceration Disposition Clinical Impression: Hand laceration Disposition: HOME SELF-CARE Condition: Stable Instructions (If sedation given, give patient instructions): Care For Your Stitches (ED), Laceration (ED) Additional Instructions: Sutures removed in 10 days. Please return to the Emergency Department if symptoms worsen or any other concerns. Is patient prescribed a controlled substance at d/c from ED?: No Referrals: Whitney Almanzar MD [Primary Care Provider] - 1-2 days Time of Disposition: 08:34
[2021-08-01] MEDS ORDERED: BACITRACIN OINT 1 EACH PACKET TOPICAL ONE (08:27)
[2021-08-01 09:06] VITALS: BP 128/78; PULSE 88
== END 2021-08-01 09:13 | disposition home or self-care (01) ==
LOC: EC 07:54
DX: S61.441A Puncture wound with foreign body of right hand, initial encounter (principal); F17.200 Nicotine dependence, unspecified, uncomplicated; W26.8XXA Contact with other sharp object(s), not elsewhere classified, initial encounter; Y93.89 Activity, other specified
CPT/HCPCS: 12001; 99283; J2001

== ENCOUNTER 2021-10-01 11:35 | Inpatient (IN) | payer MEDICAID, OTHER ==
--- NOTE | 2021-10-01 12:39 | ED ---
Psych [facility] - General Chief Complaint: Psychiatric Symptoms Stated Complaint: Mental Health Time Seen by Provider: 10/01/21 12:20 Source: patient, RN notes reviewed Mode of arrival: ambulatory Limitations: no limitations - History of Present Illness Initial Comments: This a 40-year-old male presents emergency Department with chief complaint of depression, suicidal ideation. Patient states that he was seen here recently for similar complaints facility worsen. Patient states he does use marijuana no other illicit drug use no alcohol abuse. Denies any homicidal ideation patient offers no complaints. - Related Data Home Medications Medication Instructions Recorded Confirmed No Known Home Medications 06/23/21 10/01/21 Allergies Allergy/AdvReac Type Severity Reaction Status Date / Time No Known Allergies Allergy Verified 10/01/21 12:52 Review of Systems ROS Statement: Those systems with pertinent positive or pertinent negative responses have been documented in the HPI. ROS Other: All systems not noted in ROS Statement are negative. Past Medical History Past Medical History: No Reported History History of Any Multi-Drug Resistant Organisms: MRSA Date of last positivie culture/infection: 2010 MDRO Source:: left arm Past Surgical History: No Surgical Hx Reported Past Anesthesia/Blood Transfusion Reactions: No Reported Reaction Past Psychological History: Anxiety, Bipolar, PTSD Smoking Status: Current every day smoker Past Alcohol Use History: None Reported Past Drug Use History: Marijuana - Past Family History Mother Family Medical History: COPD Father Additional Family Medical History / Comment(s): alcohol abuse General Exam Limitations: no limitations General appearance: alert, in no apparent distress Head exam: Present: atraumatic, normocephalic, normal inspection Eye exam: Present: normal appearance, PERRL, EOMI. Absent: scleral icterus, conjunctival injection, periorbital swelling ENT exam: Present: normal exam, normal oropharynx, mucous membranes moist Neck exam: Present: normal inspection, full ROM. Absent: tenderness, meningismus, lymphadenopathy Respiratory exam: Present: normal lung sounds bilaterally. Absent: respiratory distress, wheezes, rales, rhonchi, stridor Cardiovascular Exam: Present: regular rate, normal rhythm, normal heart sounds. Absent: systolic murmur, diastolic murmur, rubs, gallop, clicks Course Vital Signs 10/01/21 12:18 Temperature 98.5 F Pulse Rate 96 Respiratory 20 Rate Blood Pressure 114/85 O2 Sat by Pulse 98 Oximetry Disposition Clinical Impression: Depression, Suicidal ideation Disposition: TRANSFER TO [facility] Referrals: Whitney Almanzar MD [Primary Care Provider] - 1-2 days
[2021-10-01] MEDS ORDERED: MAG HYDROX/AL HYDROX/SIMETH 30 ML CUP PO PRN (18:18)
[2021-10-01] MEDS ORDERED: LORazepam 2 MG/ML INJ IM PRN (18:20)
[2021-10-01] MEDS ORDERED: haloperidoL 5 MG TAB PO PRN (18:21)
[2021-10-01] MEDS ORDERED: HALOPERIDOL LACTATE 5 MG/ML 1 ML VIAL IM PRN (18:21)
[2021-10-01] MEDS: NICOTINE 14MG/24HR PATCH TRANSDERM SCH (21:26)
[2021-10-02 06:52] LABS: Basophils # (A) 0.1 k/uL (0-0.2); Basophils % (A) 1 %; Eosinophils # (A) 0.2 k/uL (0-0.7); Eosinophils % (A) 2 %; HCT 41.6 % (39.0-53.0); HGB 13.7 gm/dL (13.0-17.5); Lymphocytes # (A) 2.7 k/uL (1.0-4.8); Lymphocytes % (A) 35 %; MCH 29.8 pg (25.0-35.0); MCV 90.4 fL (80.0-100.0); Mean Platelet Volume 6.4; Monocytes # (A) 0.3 k/uL (0-1.0); Monocytes % (A) 4 %; Neutrophils # (A) 4.3 k/uL (1.3-7.7); Neutrophils % (A) 56 %; Platelet Count 392 k/uL (150-450); RDW 13.9 % (11.5-15.5); WBC 7.8 k/uL (3.8-10.6)
[2021-10-02 07:20] LABS: ALT 25 U/L (4-49); AST 33 U/L (17-59); African American GFR (CKD) >90 (>60 ml/min/1.73 sqM); Albumin 3.6 g/dL (3.5-5.0); Alkaline Phosphatase 72 U/L (38-126); Anion Gap 4 mmol/L; Blood Urea Nitrogen 14 mg/dL (9-20); Carbon Dioxide 30 mmol/L (22-30); Chloride 104 mmol/L (98-107); Glucose 91 mg/dL (74-99); Non-African American GFR(CKD) >90 (>60 ml/min/1.73 sqM); Potassium 4.6 mmol/L (3.5-5.1); Sodium 138 mmol/L (137-145); Total Bilirubin 0.4 mg/dL (0.2-1.3); Total Protein 6.4 g/dL (6.3-8.2)
[2021-10-02] MEDS: ACETAMINOPHEN TAB 325 MG TAB PO PRN ×2 (08:18→16:40)
[2021-10-02] MEDS: NICOTINE 14MG/24HR PATCH TRANSDERM SCH (08:23)
[2021-10-02] MEDS ORDERED: FLUoxetine HCL 20 MG CAP PO STA (10:00)
[2021-10-02] MEDS: LORazepam 1 MG TAB PO PRN ×2 (10:02→18:12)
--- NOTE | 2021-10-02 11:10 | P.HP ---
Psychiatric H&P - . H&P Date: 10/02/21 History & Physical: Allergies Allergy/AdvReac Type Severity Reaction Status Date / Time No Known Allergies Allergy Verified 10/01/21 12:52 Vital Signs Temp 96.9 F L 10/01/21 18:48 Pulse 75 10/01/21 18:48 Resp 20 10/01/21 18:48 BP 127/86 10/01/21 18:48 Pulse Ox 98 10/01/21 12:18 Intake & Output 10/01/21 10/02/21 10/02/21 18:59 06:59 18:59 Weight 78.727 kg Laboratory Last Values WBC 7.8 k/uL (3.8-10.6) 10/02/21 06:17 RBC 4.60 m/uL (4.30-5.90) 10/02/21 06:17 Hgb 13.7 gm/dL (13.0-17.5) 10/02/21 06:17 Hct 41.6 % (39.0-53.0) 10/02/21 06:17 MCV 90.4 fL (80.0-100.0) 10/02/21 06:17 MCH 29.8 pg (25.0-35.0) 10/02/21 06:17 MCHC 33.0 g/dL (31.0-37.0) 10/02/21 06:17 RDW 13.9 % (11.5-15.5) 10/02/21 06:17 Plt Count 392 k/uL (150-450) 10/02/21 06:17 MPV 6.4 10/02/21 06:17 Neutrophils % 56 % 10/02/21 06:17 Lymphocytes % 35 % 10/02/21 06:17 Monocytes % 4 % 10/02/21 06:17 Eosinophils % 2 % 10/02/21 06:17 Basophils % 1 % 10/02/21 06:17 Neutrophils # 4.3 k/uL (1.3-7.7) 10/02/21 06:17 Lymphocytes # 2.7 k/uL (1.0-4.8) 10/02/21 06:17 Monocytes # 0.3 k/uL (0-1.0) 10/02/21 06:17 Eosinophils # 0.2 k/uL (0-0.7) 10/02/21 06:17 Basophils # 0.1 k/uL (0-0.2) 10/02/21 06:17 Sodium 138 mmol/L (137-145) 10/02/21 06:17 Potassium 4.6 mmol/L (3.5-5.1) 10/02/21 06:17 Chloride 104 mmol/L (98-107) 10/02/21 06:17 Carbon Dioxide 30 mmol/L (22-30) 10/02/21 06:17 Anion Gap 4 mmol/L 10/02/21 06:17 BUN 14 mg/dL (9-20) 10/02/21 06:17 Creatinine 0.94 mg/dL (0.66-1.25) 10/02/21 06:17 Est GFR (CKD-EPI)AfAm >90 (>60 ml/min/1.73 sqM) 10/02/21 06:17 Est GFR (CKD-EPI)NonAf >90 (>60 ml/min/1.73 sqM) 10/02/21 06:17 Glucose 91 mg/dL (74-99) 10/02/21 06:17 Calcium 9.0 mg/dL (8.4-10.2) 10/02/21 06:17 Total Bilirubin 0.4 mg/dL (0.2-1.3) 10/02/21 06:17 AST 33 U/L (17-59) 10/02/21 06:17 ALT 25 U/L (4-49) 10/02/21 06:17 Alkaline Phosphatase 72 U/L (38-126) 10/02/21 06:17 Total Protein 6.4 g/dL (6.3-8.2) 10/02/21 06:17 Albumin 3.6 g/dL (3.5-5.0) 10/02/21 06:17 TSH 0.956 mIU/L (0.465-4.680) 10/02/21 06:17 Coronavirus (PCR) Not Detected (Not Detectd) 10/01/21 15:01 10/02/21 11:09 IDENTIFYING DATA: Patient is a , unemployed, 40-year-old male with significant history of bipolar disorder who presents to the hospital chief complaint of suicidal ideation. HPI: Patient presented to the hospital on 10/01/21, brought in on his own volition for suicidal thoughts. The patient reported suicidal ideation with a plan to overdose and intention to follow through. The patient reports that over the past 5-6 months, he has been dealing with an insurmountable amount of stress. He reports that he has no significant family supports and has been having issues with finances. He reports that someone stole his identity from unemployment and taxes. The patient reports that he has been off medications and has not been following with [facility] over the past 5-6 months. In regards to mood symptoms, patient endorses significant symptoms of depression. He reports that for the past few months, he has been dealing with anhedonia, crying, excessive sleep, low appetite, and suicidal ideation with numerous plans. He does report a history of 4-5 suicide attempts in the past however states that this time he did not attempt but is getting close to the point that he would. In regards to manic symptoms, the patient does report that he has gone 3 days with no sleep. Reports mood lability, pressured speech, impulsivity, and at times grandiosity. Furthermore, the patient does endorse significant psychotic symptoms. He reports that he is expressing visual hallucinations in the form of "people, I think there are ghosts, enjoying themselves while I am miserable." He also reports that he expends auditory hallucinations that often narrate what is going on around him. The patient states that he was last on a regimen of Seroquel, Depakote, and Ativan prior to stopping his medications. He expresses strong desire to be put back on his medications. PAST PSYCHIATRIC HISTORY: Patient states that he has had previous diagnoses of bipolar disorder. The patient has been on numerous medications including lithium, Prolixin, Abilify, Depakote, most recently on a regimen of Seroquel and Depakote. The patient has had 3-4 prior inpatient psychiatric admissions with the last time being in 2018. He was originally open with [facility] but has not seen them in the last 6 months. He reports 3-4 prior suicide attempts in the past. PMH: Past Medical History: No Reported History History of Any Multi-Drug Resistant Organisms: MRSA Date of last positivie culture/infection: 2010 MDRO Source:: left arm Past Surgical History: No Surgical Hx Reported Past Anesthesia/Blood Transfusion Reactions: No Reported Reaction Past Psychological History: Anxiety, Bipolar, PTSD Smoking Status: Current every day smoker Past Alcohol Use History: None Reported Past Drug Use History: Marijuana ALLERGIES: NO KNOWN DRUG ALLERGIES CHEMICAL DEPENDENCY HISTORY: The patient reports that he smokes 1-2 packs per day. He reports occasional beer but states that he has not drank heavily in many years. He reports daily marijuana use. He reports that he is methamphetamines approximately one week ago. FAMILY PSYCHIATRIC/SUBSTANCE USE HISTORY: The patient reports that his mother is bipolar and his father has alcohol use disorder. SOCIAL HISTORY: Patient was born and raised in [place], [place]. He has his GED. He is single, never , and has 2 children ages 18 and 20. He is currently homeless after staying with a friend but states that he is unable to go back to his friend's place after discharge. Is currently unemployed. He was released from [facility] in February after spending a year incarcerated due to domestic violence. He reports no service or yazidi affiliation. MENTAL STATUS EXAM: General Appearance: Patient appears to be stated age is alert, directable, and attempts to cooperate. Patient appears to have poor hygiene and grooming. The patient has multiple tattoos and appears slightly disheveled. Behavior: Patient is seated without any agitated behavior. Psychomotor slowing appears to be evident. Eye contact is appropriate. Speech: Patient's speech is tone, low in volume, but otherwise nonpressured and fluent. Mood/Affect: Patient reports their mood is depressed, affect is congruent and withdrawn. Suicidality/Homicidality: Patient denies having any homicidal ideation intent or plan. Endorses suicidal ideation. Perceptions: Patient endorses both auditory and visual hallucinations. Though content/process: There is no evidence of any delusional thought content and thought process is linear and goal-directed. Memory and concentration: AOX3, grossly intact for the purposes of this session. Can spell "WORLD" backwards Judgment and insight: poor STRENGTHS/WEAKNESSES: Strengths is that the patient appears to be resilient. Weakness is that the patient engages in substance use and has numerous psychosocial and financial stressors. INTELLECT: average IMPRESSIONS: Bipolar 2 disorder, depressive episode Nicotine dependence Cannabis use disorder PLAN: -Patient is admitted under voluntary status to [facility] for stabilization of psychiatric symptoms and safety. Patient signed adult voluntary form and medication consent and is placed in patient's chart. -Medications : Will start patient on Depakote ER 500 mg by mouth at bedtime for mood stabilization Prozac 20 mg by mouth daily for depression/anxiety Seroquel 100 mg by mouth at bedtime for mood stabilization/bipolar depression -Ativan and Haldol PRN for agitation/aggression -Patient was counselled on substance abuse and desired to cut back on use -Patient was informed of the risks, benefits and side effects of the medication and patient verbally consented to taking the medications. Patient signed med consent form and was placed in chart. -Internal Medicine consult to perform medical evaluation and physical. -NRT - nicotine patch -SW on board for discharge planning. Encourage patient to participate in groups to work on coping skills. 10/02/21 11:10
--- NOTE | 2021-10-02 15:03 | P.CONS ---
History of Present Illness - Reason for Consult Consult date: 10/02/21 Medical management - Chief Complaint Suicidal ideation - History of Present Illness 40-year-old male presents emergency Department with chief complaint of depression, suicidal ideation. Patient states that he was seen here recently for similar complaints facility worsen. Patient states he does use marijuana no other illicit drug use no alcohol abuse. Denies any homicidal ideation patient offers no complaints. Review of Systems REVIEW OF SYSTEMS: CONSTITUTIONAL: No fever, no malaise, no fatigue. HEENT: No recent visual problems or hearing problems. Denied any sore throat. CARDIOVASCULAR: No chest pain, orthopnea, PND, no palpitations, no syncope. PULMONARY: No shortness of breath, no cough, no hemoptysis. GASTROINTESTINAL: No diarrhea, no nausea, no vomiting, no abdominal pain. NEUROLOGICAL: No headaches, no weakness, no numbness. HEMATOLOGICAL: Denies any bleeding or petechiae. GENITOURINARY: Denies any burning micturition, frequency, or urgency. MUSCULOSKELETAL/RHEUMATOLOGICAL: Denies any joint pain, swelling, or any muscle pain. ENDOCRINE: Denies any polyuria or polydipsia. The rest of the 14-point review of systems is negative. Past Medical History Past Medical History: No Reported History History of Any Multi-Drug Resistant Organisms: MRSA Year Discovered:: 2010 MDRO Source:: left arm Past Surgical History: No Surgical Hx Reported Past Anesthesia/Blood Transfusion Reactions: No Reported Reaction Past Psychological History: Anxiety, Bipolar, PTSD Smoking Status: Current every day smoker Past Alcohol Use History: None Reported Past Drug Use History: Marijuana - Past Family History Mother Family Medical History: COPD Father Additional Family Medical History / Comment(s): alcohol abuse Medications and Allergies Home Medications Medication Instructions Recorded Confirmed Type No Known Home Medications 06/23/21 10/01/21 History Allergies Allergy/AdvReac Type Severity Reaction Status Date / Time No Known Allergies Allergy Verified 10/01/21 12:52 Physical Exam Vitals: Vital Signs Temp Pulse Pulse Resp BP BP Pulse Ox 10/01/21 18:48 96.9 F L 75 20 127/86 10/01/21 12:18 98.5 F 96 20 114/85 98 Intake and Output 10/01/21 10/02/21 10/02/21 22:59 06:59 14:59 Other: Weight 78.727 kg PHYSICAL EXAMINATION: GENERAL: The patient is alert and oriented x3, not in any acute distress. Well developed, well nourished. HEENT: Pupils are round and equally reacting to light. EOMI. No scleral icterus. No conjunctival pallor. Normocephalic, atraumatic. No pharyngeal erythema. No thyromegaly. CARDIOVASCULAR: S1 and S2 present. No murmurs, rubs, or gallops. PULMONARY: Chest is clear to auscultation, no wheezing or crackles. ABDOMEN: Soft, nontender, nondistended, normoactive bowel sounds. No palpable organomegaly. MUSCULOSKELETAL: No joint swelling or deformity. EXTREMITIES: No cyanosis, clubbing, or pedal edema. NEUROLOGICAL: Gross neurological examination did not reveal any focal deficits. SKIN: No rashes. Results CBC & Chem 7: 10/02/21 06:17 10/02/21 06:17 Assessment and Plan Assessment: 1. Depression; patient has been placed on Prozac 20 mg daily for anxiety and depression; Seroquel 100 mg daily at bedtime 5 bipolar depression and mood stabilization 2. Suicidal ideation; patient is admitted involuntarily status; has been placed on Depakote ER, Prozac and Seroquel 3. Fall/right knee abrasion; slight erythema around abrasion site which is scabbed; no need of antibiotics we will just monitor 4. Nicotine dependence; counseling done 5. Substance use disorder; patient uses Cannabis; counseling done DVT prophylaxis; early ambulation CODE STATUS; full code
[2021-10-02] MEDS: QUEtiapine 100 MG TAB PO SCH (21:20)
[2021-10-02] MEDS: DIVALPROEX ER 500 MG TAB.ER.24H PO SCH (21:20)
[2021-10-03 07:04] VITALS: RESP 16
[2021-10-03] MEDS: NICOTINE 14MG/24HR PATCH TRANSDERM SCH (08:34)
[2021-10-03] MEDS: FLUoxetine HCL 10 MG CAP PO SCH (08:34)
--- NOTE | 2021-10-03 10:20 | P.PN ---
Progress Note - Text Progress Note Date: 10/03/21 Interval History: Patient was seen resting in bed and was directable and agreeable to speak with commercial insurance underwriter in his room. The patient reports that he is feeling slightly better. He continues to endorse significant depression and suicide ideation. He is denying any homicidal ideation, intention,/or plan. He is not reporting any auditory or visual hallucinations. He is tolerating his medications and is reporting mild sedation as a side effect. He denies any issues regarding his sleep or his appetite at this time. Mental Status Exam: General Appearance: Patient appears to be stated age is somewhat somnolent, but directable, and cooperative. Behavior: Patient is calmly lying down in bed. Eye contact is intermittent. Speech: Patient's speech is fluent and nonpressured. Monotone. Mood/Affect: Mood is improving mildly, affect is congruent and somnolent. Suicidality/Homicidality: Patient endorses suicidal ideation and no homicidal ideation. Perceptions: Patient denies any visual hallucinations and denies any auditory hallucinations Though content/process: There is no evidence of any delusional thought content and thought process is linear and goal-directed. Memory and concentration: AOX3, grossly intact for the purposes of this session Judgment and insight: Improving mildly Vital Signs Temp 97.3 F L 10/03/21 06:57 Pulse 63 10/03/21 06:57 Resp 16 10/03/21 06:57 BP 107/67 10/03/21 06:57 Pulse Ox 98 10/01/21 12:18 Laboratory Results - Last 24 Hours 10/02/21 06:[address] Glu mg/dL 103 Hemoglobin A1c 5.2 Assessment Bipolar 2 disorder, depressive episode Nicotine dependence Cannabis use disorder Plan: -Patient continues to meet criteria for inpatient psychiatric admission for symptom stabilization and safety. Patient has signed adult voluntary form and medication consent and was placed in patient's chart. -Medications: Continue Depakote ER 500 mg daily at bedtime for mood stabilization Increase Prozac to 30 mg by mouth daily for depression/anxiety Continue Seroquel 100 mg daily at bedtime for mood stabilization/bipolar depression. We will increase to 200 mg over the weekend. -When necessary Ativan and Haldol for agitation/aggression. -NRT - nicotine patch -SW on board for discharge planning. Encouraged the patient to participate in milieu.
[2021-10-03] MEDS: LORazepam 1 MG TAB PO PRN (13:23)
[2021-10-03 16:07] LABS: Appearance,Urine Clear (Clear); Bilirubin,Urine Negative (Negative); Blood,Urine Negative (Negative); Color,Urine Light Yellow; Glucose,Urine (UA) Negative (Negative); Ketones,Urine Negative (Negative); Leukocyte Esterase,Urine Negative (Negative); Nitrite,Urine Negative (Negative); PH, Urine 6.5 (5.0-8.0); Protein,Urine Negative (Negative); Specific Gravity,Urine 1.013 (1.001-1.035); Urobilinogen,Urine <2.0 mg/dL (<2.0)
[2021-10-03 16:11] LABS: Amphetamine Screen,Urine Detected (NotDetected); Barbiturate Screen,Urine Not Detected (NotDetected); Benzodiazepines Screen,Urine Detected (NotDetected); Cocaine Screen,Urine Not Detected (NotDetected); Methadone Screen, Urine Not Detected (NotDetected); Opiate Screen,Urine Not Detected (NotDetected); Oxycodone Screen, Urine Not Detected (NotDetected); Phencyclidine Screen,Urine Not Detected (NotDetected); Tricyclic Antidepressant,Urine Not Detected (NotDetected); Urn Cannabinoid Scrn Detected (NotDetected)
[2021-10-03] MEDS: QUEtiapine 100 MG TAB PO SCH (21:09)
[2021-10-03] MEDS: DIVALPROEX ER 500 MG TAB.ER.24H PO SCH (21:09)
[2021-10-04] MEDS: LORazepam 1 MG TAB PO PRN (08:16)
[2021-10-04] MEDS: NICOTINE 14MG/24HR PATCH TRANSDERM SCH (08:18)
[2021-10-04] MEDS: FLUoxetine HCL 10 MG CAP PO SCH (08:19)
[2021-10-04] MEDS: QUEtiapine 50 MG TAB PO SCH ×2 (16:00→20:49)
--- NOTE | 2021-10-04 17:09 | PN ---
PROGRESS NOTE DATE OF SERVICE: 10/04/2021. CHIEF COMPLAINT: The patient was depressed. He had suicide thoughts with a plan to overdose. He described multiple stress issues. He has substance use issues. INTERVAL HISTORY: Patient has continued to struggle with a depressed mood. He had a quiet day yesterday. He spent much of the time in his room. He does not socialize with others. He has had a lot of anxiety. Yesterday at 1323 hours he received Ativan 2 mg p.o. relating to high anxiety, tearfulness and depression. He said he did not sleep well last night. Today he has been up. He said today is the first day he has actually gotten out of his room some. He did socialize a little with others. When I saw him in the day area, he seemed to show some bit of positive mood, though when he came into the office he quickly regressed. He was very depressed and tearful. He talked about the suicidality and how he feels that is his only outlook for all of the struggles he has had. He acknowledges that drug use has been in the picture. He was vague on specifics though seemed to indicate that regular drug use has been a factor at least for a while for him. He acknowledges that he may be struggling with withdrawal issues. He tolerates his psychotropic medication. In regards to reviewing the patient's history, he does say that he has manic episodes that may last up to week. He said that his current struggles with depression seem to be set off by being in a manic episode. He describes where he will be able to go several days with little or no sleep. He gets high energy. He can have impulsive behavior. His mood can be quite elevated, and then from that he can crash into depression, which seems to be the situation at present. He has had recurring bouts of nallely with more persistent struggles with recurrent depression. MENTAL STATUS: Patient was fairly restless. He did not give much eye contact. He mostly sat in a slumped posture and looked down. He was tearful throughout most of the interview. He was quite anxious. His affect was intense, mood depressed. He was significantly distressed. There was no immediate evidence of thought disorder. He acknowledged some passive thoughts of suicide without a plan or intent. Cognition was clear. ASSESSMENT: The patient is diagnosed with bipolar disorder. He appears to present symptoms consistent with bipolar 1 disorder, currently depressed phase. One concern is his being on an antidepressant, which potentially may risk increase in cycling. At this point he is scheduled to increase his Seroquel to 200 mg at bedtime. It is noted that Seroquel has the indication for bipolar nallely as well as bipolar depression, with dosing for bipolar depression being 300 mg a day. The patient also may have the aggravating factor of significant substance use and substance withdrawal. I will increase his Seroquel to 50 mg in the morning, 50 mg in the afternoon along with the 200 mg at bedtime. One of the aims of Seroquel would be to help reduce physiologic stress response relating to acute substance withdrawal in addition to its potential benefit for bipolar depression. He is on a low dose of Depakote of 500 mg. He is not likely to be in a therapeutic range. I reviewed medication issues with the patient. We talked specifically about Seroquel, including indication, potential side effects and concerns relating to metabolics and movement disorder issues. We will focus on stabilization and discharge planning. MMJACOBO / VAMSIN: [id number] /
[2021-10-04] MEDS ORDERED: QUEtiapine 50 MG TAB PO ONE (19:00)
[2021-10-04] MEDS: DIVALPROEX ER 500 MG TAB.ER.24H PO SCH (20:49)
[2021-10-04] MEDS: QUEtiapine 200 MG TAB PO SCH (20:49)
[2021-10-04] MEDS ORDERED: QUEtiapine 50 MG TAB PO SCH (21:00)
[2021-10-05] MEDS: FLUoxetine HCL 10 MG CAP PO SCH (08:21)
[2021-10-05] MEDS: NICOTINE 14MG/24HR PATCH TRANSDERM SCH (08:21)
[2021-10-05] MEDS: QUEtiapine 50 MG TAB PO SCH ×2 (08:22→20:47)
--- NOTE | 2021-10-05 12:40 | PN ---
PROGRESS NOTE DATE OF SERVICE: 10/05/2021. CHIEF COMPLAINT: The patient was depressed. He had suicide thoughts with a plan to overdose. He described multiple stress issues. He has substance use issues. INTERVAL HISTORY: Patient has been doing fair. He had a quiet day yesterday. He had quite a bit of anxiety and was down in his mood. He tends to keep to himself. He did not attend groups yesterday. He spent a fair amount of time in his room. His Seroquel was increased, including some daytime doses and an increase in nighttime dose. He does have an indication for bipolar depression as well as for acute substance withdrawal. Today when I talked to him, he said he was a little better overall. He said he was able to get some sleep last night, which was a positive. He feels the increase in Seroquel has been helpful. He said his only complaint is restless legs. Otherwise he appears to tolerate his psychotropic medications. MENTAL STATUS: Patient sat without restlessness. He gave fair eye contact. He answered questions with brief responses. He did not say a lot. His affect was blunted, his mood reserved. He seemed somewhat distressed. Overall he had a little calmer presentation than when I saw him yesterday. There was no indication of thought disorder. He voiced no thoughts of harm. He was oriented and alert. ASSESSMENT: I will continue the current diagnosis and treatment plan. I will add Cogentin 1 mg twice a day. He likely is having some EPS related to the increase in Seroquel. He is showing just a slight improvement in his mood. I did encourage him to get out to do some physical activity such as some therapeutic walking. I also encouraged him to consider trying the groups. We will focus on stabilization and discharge planning. MMODL / IJN: [id number] /
[2021-10-05] MEDS: LORazepam 1 MG TAB PO PRN ×2 (13:15→20:47)
[2021-10-05] MEDS: BENZTROPINE MESYLATE 1 MG TAB PO SCH ×2 (13:15→20:47)
[2021-10-05] MEDS: DIVALPROEX ER 500 MG TAB.ER.24H PO SCH (20:47)
[2021-10-05] MEDS: QUEtiapine 200 MG TAB PO SCH (20:47)
[2021-10-06] MEDS: BENZTROPINE MESYLATE 1 MG TAB PO SCH ×2 (08:36→20:47)
[2021-10-06] MEDS: QUEtiapine 50 MG TAB PO SCH (08:36)
[2021-10-06] MEDS: NICOTINE 14MG/24HR PATCH TRANSDERM SCH (08:36)
[2021-10-06] MEDS: FLUoxetine HCL 10 MG CAP PO SCH (08:36)
--- NOTE | 2021-10-06 11:37 | PN ---
PROGRESS NOTE DATE OF SERVICE: 10/06/2021. CHIEF COMPLAINT: The patient was depressed. He had suicide thoughts with a plan to overdose. He described multiple stress issues. He has substance use issues. INTERVAL HISTORY: Patient has been doing fair. He continues to have significant mood difficulties. He had a quiet day yesterday. He tends to keep to himself. He did not attend groups yesterday. He said he slept fair last night. Today, he has been in his room much of the rail bonder. He does note that the daytime Seroquel doses he takes makes him somewhat sleepy. He says he has also been able to get out some and be active. For the most part, he keeps to himself and does not interact too much with others. He continues to have a depressed mood and negative outlook. He acknowledges the struggle he has had with substance use issues and states that he has been doing various drugs that he came in on for quite some time on a regular basis. He is very focused on going to a substance abuse inpatient program. He has not been in 1 before. He understands that he will need to make the initial contacts. For the most part, he tolerates his psychotropic medications. He continues on Seroquel as a combination for bipolar depression as well as for management of substance withdrawal issues. MENTAL STATUS EXAM: Patient sat without restlessness. Eye contact was poor. Psychomotor activity was slowed. Speech was monotone. He answered questions with brief responses. He did not say much. His affect was flat, his mood depressed. He was moderately distressed. There was no clear indication for thought disorder. He was vague about whether he continues to have any thoughts of self-harm. He is oriented and alert. ASSESSMENT: I will continue the current diagnosis and treatment plan. I will adjust his Seroquel so he will take 25 mg in the morning, 25 mg in the afternoon and 250 mg at bedtime. The daytime doses should help some with some of the physical symptoms relating to substance withdrawal. He is on a total of 300 mg a day, which is the indicated dose for bipolar depression. The patient will be making contact with substance use facilities looking for an intake as soon as possible. We will focus on stabilization and discharge planning. MMODL / IJN: [id number] /
[2021-10-06] MEDS: LORazepam 1 MG TAB PO PRN (12:23)
[2021-10-06] MEDS: QUEtiapine 25 MG TAB PO SCH (13:49)
[2021-10-06] MEDS: DIVALPROEX ER 500 MG TAB.ER.24H PO SCH (20:47)
[2021-10-06] MEDS ORDERED: QUEtiapine 100 MG TAB PO SCH (21:00)
[2021-10-07] MEDS: ACETAMINOPHEN TAB 325 MG TAB PO PRN ×2 (00:12→08:44)
[2021-10-07] MEDS: LORazepam 1 MG TAB PO PRN ×2 (00:12→09:09)
[2021-10-07 00:26] VITALS: BP 131/90; PULSE 91; TEMP 97.3
[2021-10-07] MEDS: FLUoxetine HCL 10 MG CAP PO SCH (08:43)
[2021-10-07] MEDS: BENZTROPINE MESYLATE 1 MG TAB PO SCH (08:43)
[2021-10-07] MEDS: QUEtiapine 25 MG TAB PO SCH (08:43)
[2021-10-07] MEDS: NICOTINE 14MG/24HR PATCH TRANSDERM SCH (08:43)
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
== END 2021-10-07 14:19 | disposition home or self-care (01) | DRG 885 ==
LOC: EC 11:35 → 3MHU 18:10
PROVIDERS: ADMIT Psychiatry & Neurology Psychiatry; ATTEND Psychiatry & Neurology Psychiatry
DX: F31.30 Bipolar disorder, current episode depressed, mild or moderate severity, unspecified (principal); R45.851 Suicidal ideations; F31.81 Bipolar II disorder; F12.10 Cannabis abuse, uncomplicated; F17.210 Nicotine dependence, cigarettes, uncomplicated; F43.10 Post-traumatic stress disorder, unspecified; G25.81 Restless legs syndrome; S80.211A Abrasion, right knee, initial encounter; Z56.0 Unemployment, unspecified; Z59.00 Homelessness unspecified; Z79.899 Other long term (current) drug therapy; Z82.5 Family history of asthma and other chronic lower respiratory diseases; Z91.51 Personal history of suicidal behavior
CPT/HCPCS: 80053; 80306; 81003; 82075; 83036; 84443; 85025; 87635; 99285

== ENCOUNTER 2021-11-21 19:59 | Inpatient (IN) | payer MEDICAID, OTHER ==
[2021-11-21] MEDS ORDERED: HALOPERIDOL LACTATE 5 MG/ML 1 ML VIAL IM PRN (23:41)
[2021-11-21] MEDS ORDERED: ACETAMINOPHEN TAB 325 MG TAB PO PRN (23:41)
[2021-11-21] MEDS ORDERED: MAG HYDROX/AL HYDROX/SIMETH 30 ML CUP PO PRN (23:41)
[2021-11-21] MEDS ORDERED: MAGNESIUM HYDROXIDE 2,400 MG/10 ML CUP PO PRN (23:41)
--- NOTE | 2021-11-22 01:32 | ED ---
Psych HPI - General Chief Complaint: Psychiatric Symptoms Stated Complaint: Mental Health Source: patient Mode of arrival: ambulatory - History of Present Illness Initial Comments: 41 year old male past medical history of substance abuse presents emergency department for suicidal ideations. States to me that he is here to "get his life together". Reports to marijuana and methamphetamine abuse. He has been living with friends currently does not have a job. For that he has been depressed with suicidal ideation to take bunch pills. Patient has been hospitalist before for similar complaint. Denies any homicidal ideations. Currently intoxicated. 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 ROS Other: All systems not noted in ROS Statement are negative. Past Medical History Past Medical History: No Reported History History of Any Multi-Drug Resistant Organisms: MRSA Date of last positivie culture/infection: 2010 MDRO Source:: left arm Past Surgical History: No Surgical Hx Reported Past Anesthesia/Blood Transfusion Reactions: No Reported Reaction Smoking Status: Current every day smoker - Past Family History Mother Family Medical History: COPD Father Additional Family Medical History / Comment(s): alcohol abuse General Exam Limitations: no limitations Course Vital Signs 11/21/21 20:41 Temperature 98.4 F Pulse Rate 108 H Respiratory 20 Rate Blood Pressure 121/71 O2 Sat by Pulse 97 Oximetry Medical Decision Making - Medical Decision Making Upon arrival patient was placed in room 12. Patient evaluated by EPS and will be admitted to [facility]. - Lab Data Lab Results 11/21/21 Range/Units 22:26 Coronavirus (PCR) Not Detected (Not Detectd)
[2021-11-22] MEDS: NICOTINE 14MG/24HR PATCH TRANSDERM SCH (08:59)
[2021-11-22] MEDS: LORazepam 1 MG TAB PO PRN ×2 (11:57→21:19)
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
--- NOTE | 2021-11-22 19:30 | P.CONS ---
History of Present Illness - History of Present Illness This is a pleasant 41 and his male with no significant past medical history. Patient presents complaining of suicidal thoughts related to his depressive illness. Patient was admitted to the mental health unit with medical consult requested for medical evaluation. Patient was walking the hallway with no difficulty. Patient denies chest pain or dyspnea. No change in urine or bowel habits. No fever. No headache or neurological weakness or numbness. He smokes 1 pack per day, denies alcohol. No illicit drugs. Vitals stable. Coronavirus nondetected. Currently is receiving Haldol as needed, Ativan as needed, milk of magnesia as needed and nicotine patch. As well as Tylenol. Review of Systems CONSTITUTIONAL: No fever, no malaise, no fatigue. HEENT: No recent visual problems or hearing problems. Denied any sore throat. CARDIOVASCULAR: No orthopnea, PND, no palpitations, no syncope. PULMONARY: No shortness of breath, no cough, no hemoptysis. GASTROINTESTINAL: No diarrhea, no nausea, no vomiting, no abdominal pain. Normoactive bowel sounds. NEUROLOGICAL: No headaches, no weakness, no numbness. HEMATOLOGICAL: Denies any bleeding or petechiae. GENITOURINARY: Denies any burning micturition, frequency, or urgency. MUSCULOSKELETAL/RHEUMATOLOGICAL: Denies any joint pain, swelling, or any muscle pain. ENDOCRINE: Denies any polyuria or polydipsia. Past Medical History Past Medical History: No Reported History History of Any Multi-Drug Resistant Organisms: MRSA Year Discovered:: 2010 MDRO Source:: left arm Past Surgical History: No Surgical Hx Reported Past Anesthesia/Blood Transfusion Reactions: No Reported Reaction Smoking Status: Current every day smoker - Past Family History Mother Family Medical History: COPD Father Additional Family Medical History / Comment(s): alcohol abuse Medications and Allergies Home Medications Medication Instructions Recorded Confirmed Type No Known Home Medications 11/21/21 11/21/21 History Allergies Allergy/AdvReac Type Severity Reaction Status Date / Time No Known Allergies Allergy Verified 11/21/21 22:29 Physical Exam Vitals: Vital Signs Temp Pulse Pulse Resp BP BP Pulse Ox 11/22/21 01:06 98.3 F 98 20 134/64 96 11/21/21 20:41 98.4 F 108 H 20 121/71 97 Intake and Output 11/21/21 11/22/21 11/22/21 22:59 06:59 14:59 Other: Weight 81.647 kg 76.204 kg GENERAL: The patient is alert and oriented x3, not in any acute distress. Well developed, well nourished. HEENT: Pupils are round and equally reacting to light. EOMI. No scleral icterus. No conjunctival pallor. Normocephalic, atraumatic. No pharyngeal erythema. No thyromegaly. CARDIOVASCULAR: S1 and S2 present. No murmurs, rubs, or gallops. PULMONARY: Chest is clear to auscultation, no wheezing or crackles. ABDOMEN: Soft, nontender, nondistended, normoactive bowel sounds. No palpable organomegaly. MUSCULOSKELETAL: No joint swelling or deformity. EXTREMITIES: No cyanosis, clubbing, or pedal edema. NEUROLOGICAL: Gross neurological examination did not reveal any focal deficits. SKIN: No rashes. No petechiae Assessment and Plan Assessment: -Depression and other psychiatric illnesses was source of the thorax, management as per sec primary team -Nicotine dependence, patient was counseled, continue with nicotine patch We recommend patient follow up with PCP in one week after discharge, patient was instructed with the same. Thank you for consulting us, we'll see the patient for an as-needed basis. Feel free to contact us
[2021-11-23 07:44] LABS: Basophils # (A) 0.1 k/uL (0-0.2); Basophils % (A) 1 %; Eosinophils # (A) 0.3 k/uL (0-0.7); Eosinophils % (A) 5 %; HCT 39.6 % (39.0-53.0); HGB 13.1 gm/dL (13.0-17.5); Lymphocytes # (A) 3.3 k/uL (1.0-4.8); Lymphocytes % (A) 45 %; MCH 29.2 pg (25.0-35.0); MCHC 33.1 g/dL (31.0-37.0); MCV 88.4 fL (80.0-100.0); Mean Platelet Volume 6.9; Monocytes # (A) 0.5 k/uL (0-1.0); Monocytes % (A) 7 %; Neutrophils % (A) 41 %; Platelet Count 336 k/uL (150-450); RBC 4.48 m/uL (4.30-5.90); RDW 13.5 % (11.5-15.5); WBC 7.3 k/uL (3.8-10.6)
[2021-11-23 07:54] LABS: ALT 23 U/L (4-49); AST 31 U/L (17-59); African American GFR (CKD) >90 (>60 ml/min/1.73 sqM); Albumin 3.9 g/dL (3.5-5.0); Alkaline Phosphatase 78 U/L (38-126); Anion Gap 4 mmol/L; Bilirubin, Delta 0.1 mg/dL (0.0-0.2); Bilirubin,Unconjugated 0.5 mg/dL (0.0-1.1); Blood Urea Nitrogen 16 mg/dL (9-20); Calcium 9.2 mg/dL (8.4-10.2); Carbon Dioxide 29 mmol/L (22-30); Chloride 106 mmol/L (98-107); Glucose 99 mg/dL (74-99); Non-African American GFR(CKD) >90 (>60 ml/min/1.73 sqM); Potassium 4.7 mmol/L (3.5-5.1); Sodium 139 mmol/L (137-145); Total Bilirubin 0.6 mg/dL (0.2-1.3); Total Protein 6.8 g/dL (6.3-8.2)
[2021-11-23] MEDS: NICOTINE 14MG/24HR PATCH TRANSDERM SCH (09:08)
--- NOTE | 2021-11-23 10:41 | P.PN ---
Subjective Progress Note Date: 11/23/21 Principal diagnosis: Adjustment disorder with mixed emotional features Mood disorder unspecified Rule out depressive disorder most likely substance related Methamphetamine use disorder unspecified Cannabis use disorder unspecified Rule out personality disorder with antisocial traits Subjective data: I am so irritated I have nothing to eat They have given nothing that I could eat Objective data: Patient continues to keep his eyes closed and declined to respond to this interv iewer for a long time Patient only responded briefly as described above and stated that he was irrit ated Patient remains very passive-aggressive and interview affect remains flat Patient's formal and operational judgment are impaired Social skills are poor Remains projective Plan: Continue supportive care Encourage appropriate interaction with the staff as well as that the peers and participation in on the moe activities to work towards his sobriety and social skills Continue supportive care Kieran Hernandez M.D. 11/23/2021 Objective - Vital Signs Vital signs: Vital Signs Temp 98.3 F 11/22/21 01:06 Pulse 98 11/22/21 01:06 Resp 20 11/22/21 01:06 BP 134/64 11/22/21 01:06 Pulse Ox 96 11/22/21 01:06 - Labs CBC & Chem 7: 11/23/21 07:02 11/23/21 07:02
[2021-11-23 11:55] LABS: Chol/HDL Ratio 2.74 Ratio; LDL Cholesterol,Calculated 49.8 mg/dL (0.0-131.0)
[2021-11-23 17:53] LABS: Amphetamine Screen,Urine Not Detected (NotDetected); Barbiturate Screen,Urine Not Detected (NotDetected); Benzodiazepines Screen,Urine Not Detected (NotDetected); Cocaine Screen,Urine Not Detected (NotDetected); Methadone Screen, Urine Not Detected (NotDetected); Opiate Screen,Urine Not Detected (NotDetected); Oxycodone Screen, Urine Not Detected (NotDetected); Phencyclidine Screen,Urine Not Detected (NotDetected); Tricyclic Antidepressant,Urine Not Detected (NotDetected); Urn Cannabinoid Scrn Not Detected (NotDetected)
[2021-11-24] MEDS: NICOTINE 14MG/24HR PATCH TRANSDERM SCH (08:50)
--- NOTE | 2021-11-24 10:56 | P.PN ---
Progress Note - Text Progress Note Date: 11/24/21 Interval History: Patient was seen laying in his bed this morning and was directable and agreeable to speak with machine sign writer in the office. Patient was initially fairly guarded and evasive. He gave very superficial answers as to why he was in the hospital and his symptoms. He eventually claimed that he was feeling depressed and anxious. He also states that he was feeling suicidal at home therefore came into the hospital. He did not speak much about his triggers and his home situation today. He appeared to be restless in his chair had poor hygiene and grooming. He states that he has low energy. He claims that he has had Seroquel in the past and Prozac which has helped him however has been off his medications. He was agreeable to be restarted on this today. He states that he slept poorly last night. Has a fair appetite. At this time patient denies any homical ideations, intent or plan. Patient denies any auditory, visual hallucinations and denies any paranoia or delusions. Patient denies any side effects from the medications and has been compliant with meds. Mental Status Exam: General Appearance: Patient appears to be well built, stated age is alert, guarded and evasive. Poor hygiene and grooming. Behavior: Patient is calmly seated without any agitated behavior. Guarded and vague. Speech: Patient's speech is fluent and nonpressured. Soft tone Mood/Affect: Mood is "depressed and anxious", affect is congruent and constricted. Suicidality/Homicidality: Patient denies having any suicidal or homicidal ideation intent or plan. Perceptions: Patient denies any visual hallucinations and denies any auditory hallucinations Though content/process: [place], poverty of content. Superficial. Vague. Memory and concentration: AOX3, grossly intact for the purposes of this session Judgment and insight: Poor Assessment Major depressive recurrent, severe, with psychotic features Methamphetamine use disorder unspecified Cannabis use disorder unspecified Rule out personality disorder with antisocial traits Nicotine dependence Plan: -Patient continues to meet criteria for inpatient psychiatric admission for symptom stabilization and safety. Patient has signed adult voluntary form and medication consent and was placed in patient's chart. -Medications: Started Seroquel 50 mg daily for mood adjunct/anxiety/insomnia. I did Prozac 20 mg daily for mood/anxiety. -When necessary Ativan and Haldol for agitation/aggression. -NRT - nicotine patch -SW on board for discharge planning. Encouraged the patient to participate in milieu. Likely discharge in 2-3 days.
[2021-11-24] MEDS: FLUoxetine HCL 20 MG CAP PO SCH (11:35)
[2021-11-24] MEDS: LORazepam 1 MG TAB PO PRN (14:23)
[2021-11-24] MEDS: QUEtiapine 50 MG TAB PO SCH (20:10)
[2021-11-25] MEDS: NICOTINE 14MG/24HR PATCH TRANSDERM SCH (09:36)
[2021-11-25] MEDS: FLUoxetine HCL 20 MG CAP PO SCH (09:36)
--- NOTE | 2021-11-25 11:26 | P.PN ---
Progress Note - Text Progress Note Date: 11/25/21 Interval History: Patient was seen laying in his bed this morning however refused to get out of bed. He appeared to be somewhat tired this morning and uninterested in speaking with com writer. He denied any overnight complaints. He continues to state that he does feel depressed. He did state that he was hearing voices telling him to harm himself and also negative thoughts. Patient claims that he is not going to any groups and is disinterested. He continues to state that he has anxiety at t imes. He has poor hygiene and grooming. He states that he has low energy. He claimed that he is going to continue on with the medications. He states that he slept a bit better last night. Has a fair appetite. At this time patient denies any homical ideations, intent or plan. Patient denies any visual hallucinations and denies any paranoia or delusions. Patient denies any side effects from the medications and has been compliant with meds. Mental Status Exam: General Appearance: Patient appears to be well built, stated age is alert, guarded and evasive. Poor hygiene and grooming. Behavior: Patient is calmly seated without any agitated behavior. Guarded and vague. Speech: Patient's speech is fluent and nonpressured. Soft tone Mood/Affect: Mood is depressed and anxious, improving mildly, affect is congruent and constricted. Suicidality/Homicidality: Patient denies having any suicidal or homicidal ideation intent or plan. Perceptions: Patient denies any visual hallucinations and denies any auditory hallucinations Though content/process: [place], poverty of content. Superficial. Vague. Memory and concentration: AOX3, grossly intact for the purposes of this session Judgment and insight: Poor Assessment Major depressive recurrent, severe, with psychotic features Methamphetamine use disorder unspecified Cannabis use disorder unspecified Rule out personality disorder with antisocial traits Nicotine dependence Plan: -Patient continues to meet criteria for inpatient psychiatric admission for symptom stabilization and safety. Patient has signed adult voluntary form and medication consent and was placed in patient's chart. -Medications: Continue with Seroquel 50 mg daily for mood adjunct/anxiety/insomnia. Increased Prozac 40 mg daily for mood/anxiety. -When necessary Ativan and Haldol for agitation/aggression. -NRT - nicotine patch -SW on board for discharge planning. Encouraged the patient to participate in milieu. Likely discharge in 1-2 days. pt is apparently homeless at this time.
[2021-11-25] MEDS: QUEtiapine 50 MG TAB PO SCH (21:12)
[2021-11-26] MEDS: NICOTINE 14MG/24HR PATCH TRANSDERM SCH (08:34)
[2021-11-26] MEDS: FLUoxetine HCL 20 MG CAP PO SCH (08:34)
--- NOTE | 2021-11-26 11:53 | P.PN ---
Progress Note - Text Progress Note Date: 11/26/21 Interval History: Patient was seen laying in his bed this morning however refused to get out of bed. He continues to be endorsing mild depression and some anxiety. He believes that the medications of been helping. He continues to show little interest in going to groups or even speaking with securities underwriter. He claims that he is still homeless and does not know where he is going to live. he claims that he is still not sleeping well and was agreeable to have his seroquel increased. She continues to be manipulative at times and evasive. He has been up for his meals. Denied any overnight complaints. He is denying any voices today or denying any suicidal thoughts intent or plan. He claimed that he is going to continue on with the medications. Has a fair appetite. At this time patient denies any suicidal or homical ideations, intent or plan. Patient denies any visual or auditory hallucinations and denies any paranoia or delusions. Patient denies any side effects from the medications and has been compliant with meds. Mental Status Exam: General Appearance: Patient appears to be well built, stated age is alert, guarded and evasive. Manipulative. Poor hygiene and grooming. Behavior: Patient is calmly seated without any agitated behavior. Guarded and vague. Speech: Patient's speech is fluent and nonpressured. Soft tone Mood/Affect: Mood is depressed and anxious, improving mildly, affect is congruent and constricted. Suicidality/Homicidality: Patient denies having any suicidal or homicidal ideation intent or plan. Perceptions: Patient denies any visual hallucinations and denies any auditory hallucinations Though content/process: [place], poverty of content. Superficial. Vague. Memory and concentration: AOX3, grossly intact for the purposes of this session Judgment and insight: Chronically poor Assessment Major depressive recurrent, severe, with psychotic features Methamphetamine use disorder unspecified Cannabis use disorder unspecified Rule out personality disorder with antisocial traits Nicotine dependence Plan: -Patient continues to meet criteria for inpatient psychiatric admission for symptom stabilization and safety. Patient has signed adult voluntary form and medication consent and was placed in patient's chart. -Medications: increase Seroquel 100 mg daily for mood adjunct/anxiety/insomnia. Prozac 40 mg daily for mood/anxiety. -When necessary Ativan and Haldol for agitation/aggression. -NRT - nicotine patch -SW on board for discharge planning. Encouraged the patient to participate in milieu. Likely discharge tomorrow. pt is apparently homeless at this time and will either be staying with a friend or [facility]. He refused rehab
[2021-11-26] MEDS ORDERED: QUEtiapine 100 MG TAB PO SCH (21:00)
[2021-11-26] MEDS: LORazepam 1 MG TAB PO PRN (22:31)
[2021-11-27 06:50] VITALS: BP 150/79; PULSE 73; RESP 14; TEMP 97
[2021-11-27] MEDS: FLUoxetine HCL 20 MG CAP PO SCH (08:37)
[2021-11-27] MEDS: NICOTINE 14MG/24HR PATCH TRANSDERM SCH (08:38)
[2021-11-27] MEDS: LORazepam 1 MG TAB PO PRN (12:03)
--- NOTE | 2021-11-27 14:13 | P.DS ---
Providers Date of admission: 11/21/21 23:36 Seroquel 100 mg daily for mood adjunct/anxiety/insomnia. Prozac 40 mg daily fo Attending physician: Davidson Martini MD Consults: 11/21/21 23:41 Consult Physician Routine Consulting Provider: Matthew Stanton Consult Reason/Comments: H & P w/medical management Do you want consulting provider notified?: Yes, Notify in am Primary care physician: Jenelle Olson [facility] Course: Discharge summary He was last seen by Dr Judith Chisholm on Nov 26 and the progress note showed he continued to show improvement. His psychois has largely resolved after he was started on Seroquel . His discharge diagnosis was Major depressive disorder with psychosis , resolved at the time of discharge. He would continue to be on Prozac 40 mg and seroquel. Follow up discussed earlier I prepared the discharge package after his progress was discussed at team meeting Plan - Discharge Summary Discharge Rx Participant: No New Discharge Prescriptions: New FLUoxetine HCL [PROzac] 40 mg PO DAILY #30 cap QUEtiapine [SEROquel] 100 mg PO HS #30 tab Discharge Medication List FLUoxetine HCL [PROzac] 40 mg PO DAILY #30 cap 11/27/21 [Rx] QUEtiapine [SEROquel] 100 mg PO HS #30 tab 11/27/21 [Rx] Follow up Appointment(s)/Referral(s): [facility] [Outside] - 12/09/21 12:00 pm (12-09-21 @ 12:00 with SEO SPECIALIST Maryse Gallagher at [facility]) Whitney Almanzar MD [Primary Care Provider] - 1 Week Patient Instructions/Handouts: How to Stop Smoking (DC), Bipolar Disorder (DC) Activity/Diet/Wound Care/Special Instructions: Activity and diet as tolerated. Avoid the use of street drugs and alcohol. Take all medications as prescribed. When you are in need of refills on your medications please contact your medical provider and/or outpatient psychiatrist to have this done. Please go to scheduled outpatient appointment for aftercare treatment. If symptoms return or become worse, call the crisis line at and/or go to the nearest emergency room for evaluation Discharge Disposition: HOME SELF-CARE
== END 2021-11-27 16:16 | disposition home or self-care (01) | DRG 885 ==
LOC: EC 19:59 → 3MHU 23:36
PROVIDERS: ADMIT Psychiatry & Neurology Psychiatry; ATTEND Psychiatry & Neurology Psychiatry
DX: F33.3 Major depressive disorder, recurrent, severe with psychotic symptoms (principal); R45.851 Suicidal ideations; F43.23 Adjustment disorder with mixed anxiety and depressed mood; F17.210 Nicotine dependence, cigarettes, uncomplicated; Z71.6 Tobacco abuse counseling; F12.10 Cannabis abuse, uncomplicated; F15.10 Other stimulant abuse, uncomplicated; F60.89 Other specific personality disorders; Z82.5 Family history of asthma and other chronic lower respiratory diseases; Z81.1 Family history of alcohol abuse and dependence; Z20.822 Contact with and (suspected) exposure to COVID-19; Z86.14 Personal history of Methicillin resistant Staphylococcus aureus infection; F60.2 Antisocial personality disorder
CPT/HCPCS: 80053; 80061; 80306; 82248; 83036; 84443; 85025; 87635; 99285

== ENCOUNTER 2021-11-29 16:16 | Emergency (ER) | payer OTHER ==
--- NOTE | 2021-11-29 17:59 | ED ---
Psych HPI - General Chief Complaint: Psychiatric Symptoms Stated Complaint: Mental health eval Time Seen by Provider: 11/29/21 16:26 Source: patient, RN notes reviewed Mode of arrival: ambulatory - History of Present Illness Initial Comments: This is a 32-year-old male with a history depression was just discharged from the psychiatric unit within the week who is back today complaining of feeling suicidal and very depressed he states that he had access and inability he would overdose on medication. He denies any alcohol denies any other symptoms or complaints at this time. MD Complaint: suicidal ideation, feels depressed - Related Data Previous Rx's Medication Instructions Recorded FLUoxetine HCL [PROzac] 40 mg PO DAILY #30 cap 11/27/21 QUEtiapine [SEROquel] 100 mg PO HS #30 tab 11/27/21 Allergies Allergy/AdvReac Type Severity Reaction Status Date / Time No Known Allergies Allergy Verified 11/29/21 16:21 Review of Systems ROS Statement: Those systems with pertinent positive or pertinent negative responses have been documented in the HPI. ROS Other: All systems not noted in ROS Statement are negative. Past Medical History Past Medical History: No Reported History History of Any Multi-Drug Resistant Organisms: MRSA Date of last positivie culture/infection: 2010 MDRO Source:: left arm Past Surgical History: No Surgical Hx Reported Past Anesthesia/Blood Transfusion Reactions: No Reported Reaction Past Psychological History: Anxiety, Bipolar, PTSD Smoking Status: Current every day smoker Past Alcohol Use History: None Reported Past Drug Use History: Marijuana - Past Family History Mother Family Medical History: COPD Father Additional Family Medical History / Comment(s): alcohol abuse General Exam - General Exam Comments Initial Comments: This a well-developed well-nourished awake alert oriented 3 male Limitations: no limitations General appearance: alert, in no apparent distress Head exam: Present: atraumatic, normocephalic, normal inspection Eye exam: Present: normal appearance, PERRL, EOMI. Absent: scleral icterus, conjunctival injection, periorbital swelling ENT exam: Present: normal exam, mucous membranes moist Neck exam: Present: normal inspection, full ROM. Absent: tenderness, meningism us, lymphadenopathy Respiratory exam: Present: normal lung sounds bilaterally. Absent: respiratory distress, wheezes, rales, rhonchi, stridor Cardiovascular Exam: Present: regular rate, normal rhythm, normal heart sounds. Absent: systolic murmur, diastolic murmur, rubs, gallop, clicks GI/Abdominal exam: Present: soft, normal bowel sounds. Absent: distended, tenderness, guarding, rebound, rigid Extremities exam: Present: normal inspection, full ROM, normal capillary refill. Absent: tenderness, pedal edema, joint swelling, calf tenderness Back exam: Present: normal inspection Neurological exam: Present: alert, oriented X3, CN II-XII intact Psychiatric exam: Present: depressed, flat affect, suicidal ideation Skin exam: Present: warm, dry, intact, normal color. Absent: rash Course Vital Signs 11/29/21 16:18 Temperature 97.9 F Pulse Rate 103 H Respiratory 22 Rate Blood Pressure 148/92 O2 Sat by Pulse 100 Oximetry Medical Decision Making - Medical Decision Making The patient is requesting transfer to [facility] for inpatient evaluation and treatment of depression and suicidal ideation beds are available patient will be transferred. - Lab Data Result diagrams: 11/29/21 17:54 11/29/21 17:54 Lab Results 11/29/21 11/29/21 11/29/21 Range/Units 17:54 17:54 17:54 WBC 9.7 (3.8-10.6) k/uL RBC 4.20 L (4.30-5.90) m/uL Hgb 12.3 L (13.0-17.5) gm/dL Hct 37.1 L (39.0-53.0) % MCV 88.3 (80.0-100.0) fL MCH 29.2 (25.0-35.0) pg MCHC 33.1 (31.0-37.0) g/dL RDW 14.7 (11.5-15.5) % Plt Count 385 (150-450) k/uL MPV 6.7 Sodium 140 (137-145) mmol/L Potassium 4.2 (3.5-5.1) mmol/L Chloride 106 (98-107) mmol/L Carbon Dioxide 24 (22-30) mmol/L Anion Gap 10 mmol/L BUN 17 (9-20) mg/dL Creatinine 0.81 (0.66-1.25) mg/dL Est GFR (CKD-EPI)AfAm >90 (>60 ml/min/1.73 sqM) Est GFR (CKD-EPI)NonAf >90 (>60 ml/min/1.73 sqM) Glucose 91 (74-99) mg/dL Calcium 9.2 (8.4-10.2) mg/dL Coronavirus (PCR) Not Detected (Not Detectd) Disposition Clinical Impression: Depression, Suicidal ideation Disposition: TRANSFER TO PSYCH HOSP/UNIT Condition: Stable Referrals: Whitney Almanzar MD [Primary Care Provider] - 1-2 days - Out of Hospital Transfer - Req. Specs Out of Hospital Transfer - Requested Specifics: Psychiatric Non-ICU
[2021-11-29 18:00] LABS: HCT 37.1 % (39.0-53.0); HGB 12.3 gm/dL (13.0-17.5); MCH 29.2 pg (25.0-35.0); MCHC 33.1 g/dL (31.0-37.0); MCV 88.3 fL (80.0-100.0); Mean Platelet Volume 6.7; Platelet Count 385 k/uL (150-450); RDW 14.7 % (11.5-15.5); WBC 9.7 k/uL (3.8-10.6)
[2021-11-29 18:08] LABS: African American GFR (CKD) >90 (>60 ml/min/1.73 sqM); Anion Gap 10 mmol/L; Blood Urea Nitrogen 17 mg/dL (9-20); Calcium 9.2 mg/dL (8.4-10.2); Carbon Dioxide 24 mmol/L (22-30); Chloride 106 mmol/L (98-107); Glucose 91 mg/dL (74-99); Non-African American GFR(CKD) >90 (>60 ml/min/1.73 sqM); Potassium 4.2 mmol/L (3.5-5.1); Sodium 140 mmol/L (137-145)
[2021-11-29] MEDS ORDERED: diphenhydrAMINE 50 MG/ML 1 ML VIAL IM STA (20:41)
[2021-11-29] MEDS ORDERED: LORazepam 2 MG/ML INJ IM STA (20:41)
[2021-11-29] MEDS ORDERED: HALOPERIDOL LACTATE 5 MG/ML 1 ML VIAL IM STA (20:42)
[2021-11-29 21:21] LABS: Amphetamine Screen,Urine Detected (NotDetected); Barbiturate Screen,Urine Not Detected (NotDetected); Benzodiazepines Screen,Urine Detected (NotDetected); Cocaine Screen,Urine Not Detected (NotDetected); Methadone Screen, Urine Not Detected (NotDetected); Opiate Screen,Urine Not Detected (NotDetected); Oxycodone Screen, Urine Not Detected (NotDetected); Phencyclidine Screen,Urine Not Detected (NotDetected); Tricyclic Antidepressant,Urine Not Detected (NotDetected); Urn Cannabinoid Scrn Detected (NotDetected)
[2021-11-29 22:50] VITALS: BP 132/79; PULSE 66; RESP 18; TEMP 97.8
== END 2021-11-30 02:18 ==
LOC: EC 16:16
DX: F32.A Depression, unspecified (principal); R45.851 Suicidal ideations; F17.200 Nicotine dependence, unspecified, uncomplicated; Z20.822 Contact with and (suspected) exposure to COVID-19
CPT/HCPCS: 36415; 80048; 80306; 82075; 85027; 87635

== ENCOUNTER 2022-01-13 18:15 | Emergency (ER) | payer OTHER ==
[2022-01-13] MEDS ORDERED: LORazepam 2 MG/ML INJ IM STA (18:33)
[2022-01-13] MEDS ORDERED: HALOPERIDOL LACTATE 5 MG/ML 1 ML VIAL IM ONE (18:33)
[2022-01-13 19:23] LABS: Basophils # (A) 0.1 k/uL (0-0.2); Basophils % (A) 1 %; Eosinophils # (A) 0.1 k/uL (0-0.7); Eosinophils % (A) 1 %; HGB 12.3 gm/dL (13.0-17.5); Lymphocytes # (A) 1.6 k/uL (1.0-4.8); Lymphocytes % (A) 21 %; MCH 29.3 pg (25.0-35.0); MCHC 33.1 g/dL (31.0-37.0); MCV 88.5 fL (80.0-100.0); Mean Platelet Volume 7.5; Monocytes # (A) 0.3 k/uL (0-1.0); Monocytes % (A) 5 %; Neutrophils # (A) 5.3 k/uL (1.3-7.7); Neutrophils % (A) 71 %; Platelet Count 381 k/uL (150-450); RBC 4.18 m/uL (4.30-5.90); RDW 14.2 % (11.5-15.5); WBC 7.5 k/uL (3.8-10.6)
[2022-01-13 19:32] LABS: African American GFR (CKD) 75 (>60 ml/min/1.73 sqM); Alcohol <10 mg/dL; Anion Gap 18 mmol/L; Blood Urea Nitrogen 19 mg/dL (9-20); Calcium 9.1 mg/dL (8.4-10.2); Carbon Dioxide 17 mmol/L (22-30); Chloride 105 mmol/L (98-107); Glucose 105 mg/dL (74-99); Non-African American GFR(CKD) 65 (>60 ml/min/1.73 sqM); Potassium 3.9 mmol/L (3.5-5.1); Sodium 140 mmol/L (137-145)
--- NOTE | 2022-01-13 19:40 | ED ---
General Adult HPI - History of Present Illness -: unknown Consistency: constant Improves with: none Worsens with: none Associated Symptoms: confusion Treatments Prior to Arrival: none <Grzegorz Méndez - Last Filed: 01/14/22 03:39> - General Source: patient, RN notes reviewed, old records reviewed Mode of arrival: ambulatory Limitations: no limitations <Murali Mcintosh - Last Filed: 01/14/22 14:11> - General Chief complaint: Psychiatric Symptoms Stated complaint: petition Time Seen by Provider: 01/13/22 18:23 - History of Present Illness Initial comments: 41-year-old male presents for psychiatric evaluation, he has been petitioned and brought in by local police. Patient is agitated, aggressive, requiring re straints. Apparently the patient had been at [facility] prior to police pick out hand. The exact details of the patient's psychiatric history are not initially known. He has had multiple previous psychiatric admissions. He denies illicit drugs. He denies suicidal ideation. (Murali Mcintosh) - Related Data Home Medications Medication Instructions Recorded Confirmed Nicotine 21Mg/24Hr Patch [Habitrol] 1 patch TRANSDERM DAILY PRN 01/13/22 01/13/22 hydrOXYzine pamoate [hydrOXYzine 25 mg PO TID PRN 01/13/22 01/13/22 PAMOATE] Previous Rx's Medication Instructions Recorded FLUoxetine HCL [PROzac] 40 mg PO DAILY #30 cap 11/27/21 QUEtiapine [SEROquel] 100 mg PO HS #30 tab 11/27/21 Allergies Allergy/AdvReac Type Severity Reaction Status Date / Time No Known Allergies Allergy Verified 01/13/22 20:31 Review of Systems ROS Other: All systems not noted in ROS Statement are negative. <Grzegorz Méndez - Last Filed: 01/14/22 03:39> ROS Other: All systems not noted in ROS Statement are negative. <Murali Mcintosh - Last Filed: 01/14/22 14:11> ROS Statement: Those systems with pertinent positive or pertinent negative responses have been documented in the HPI. Past Medical History Past Medical History: No Reported History History of Any Multi-Drug Resistant Organisms: MRSA Date of last positivie culture/infection: 2010 MDRO Source:: left arm Past Surgical History: No Surgical Hx Reported Past Anesthesia/Blood Transfusion Reactions: No Reported Reaction Past Psychological History: Anxiety, Bipolar, PTSD Smoking Status: Current every day smoker Past Alcohol Use History: None Reported Past Drug Use History: None Reported - Past Family History Mother Family Medical History: COPD Father Additional Family Medical History / Comment(s): alcohol abuse <Murali Mcintosh Bridger - Last Filed: 01/14/22 14:11> General Exam Limitations: altered mental status, physical limitation General appearance: alert, appears intoxicated, anxious Head exam: Present: atraumatic, normocephalic, normal inspection Eye exam: Present: normal appearance, PERRL, EOMI. Absent: scleral icterus, conjunctival injection, periorbital swelling ENT exam: Present: normal exam, mucous membranes moist Neck exam: Present: normal inspection. Absent: tenderness, meningismus, lymphadenopathy Respiratory exam: Present: normal lung sounds bilaterally. Absent: respiratory distress, wheezes, rales, rhonchi, stridor Cardiovascular Exam: Present: regular rate, normal rhythm, normal heart sounds. Absent: systolic murmur, diastolic murmur, rubs, gallop, clicks GI/Abdominal exam: Present: soft, normal bowel sounds. Absent: distended, tenderness, guarding, rebound, rigid Extremities exam: Present: normal inspection, full ROM, normal capillary refill. Absent: tenderness, pedal edema, joint swelling, calf tenderness Back exam: Present: normal inspection Neurological exam: Present: alert, oriented X3, CN II-XII intact Psychiatric exam: Present: normal affect, normal mood Skin exam: Present: warm, dry, intact, normal color. Absent: rash <Grzegorz Méndez - Last Filed: 01/14/22 03:39> Limitations: no limitations General appearance: alert, anxious Head exam: Present: normocephalic. Absent: atraumatic (Small frontal abrasion) Neck exam: Present: normal inspection. Absent: tenderness, meningismus Respiratory exam: Present: normal lung sounds bilaterally, respiratory distress Cardiovascular Exam: Present: regular rate, normal rhythm GI/Abdominal exam: Present: soft. Absent: distended, tenderness, guarding Extremities exam: Present: normal inspection, normal capillary refill Neurological exam: Present: alert, CN II-XII intact. Absent: motor sensory deficit Psychiatric exam: Present: agitated, manic Skin exam: Present: warm, dry <Murali Mcintosh - Last Filed: 01/14/22 14:11> Course <Grzegorz Méndez - Last Filed: 01/14/22 03:39> <Murali Mcintosh - Last Filed: 01/14/22 14:11> Vital Signs 01/13/22 01/13/22 01/13/22 18:19 18:44 21:46 Temperature 98 F Pulse Rate 127 H 136 H 70 Respiratory 22 18 18 Rate Blood Pressure 168/89 140/65 O2 Sat by Pulse 98 97 99 Oximetry 01/14/22 01/14/22 05:50 07:29 Temperature 97.4 F L Pulse Rate 52 L Respiratory 14 16 Rate Blood Pressure 105/76 O2 Sat by Pulse 99 Oximetry - Reevaluation(s) Reevaluation #1: 01/13/22 2100 Patient care signed out at shift change awaiting EPS evaluation. (Murali Mcintosh) Reevaluation #2: 01/14/22 02:05 Medical clear for psychiatric evaluation (Grzegorz Méndez) Procedures - Restraint - Face to Face Restraint Occurrence 1 Patient's Immediate Situation: Endangers self safety, Endangers others' safety, Endangers staff safety, Violent behavior Patient's Reaction to the Intervention: Uncooperative, Angry, Belligerent, Aggressive Patient's Medical & Behavioral Condition: Awake, Alert, Agitated, Paranoid, Manic Need to Continue or Terminate Restraint or Seclusion: Continue Face to Face Eval of Restraint Date: 01/13/22 Face to Face Eval of Restraint Time: 18:35 <Murali Mcintosh - Last Filed: 01/14/22 14:11> Medical Decision Making - Lab Data Result diagrams: 01/13/22 19:17 01/13/22 19:17 <Grzegorz Méndez - Last Filed: 01/14/22 03:39> - Lab Data Result diagrams: 01/13/22 19:17 01/13/22 19:17 <Murali Mcintosh - Last Filed: 01/14/22 14:11> - Medical Decision Making 41-year-old male who presented with aggression, agitation. He had required both physical and medical restraint. He was observed in the emergency department and ultimately became calm and cooperative. He was evaluated by EPS and does not pose a risk to himself. He has signed a safety plan. They are recommending discharge at this time. (Murali Mcintosh) - Lab Data Lab Results 01/13/22 01/13/22 01/13/22 Range/Units 19:17 19:17 19:17 WBC 7.5 (3.8-10.6) k/uL RBC 4.18 L (4.30-5.90) m/uL Hgb 12.3 L (13.0-17.5) gm/dL Hct 37.0 L (39.0-53.0) % MCV 88.5 (80.0-100.0) fL MCH 29.3 (25.0-35.0) pg MCHC 33.1 (31.0-37.0) g/dL RDW 14.2 (11.5-15.5) % Plt Count 381 (150-450) k/uL MPV 7.5 Neutrophils % 71 % Lymphocytes % 21 % Monocytes % 5 % Eosinophils % 1 % Basophils % 1 % Neutrophils # 5.3 (1.3-7.7) k/uL Lymphocytes # 1.6 (1.0-4.8) k/uL Monocytes # 0.3 (0-1.0) k/uL Eosinophils # 0.1 (0-0.7) k/uL Basophils # 0.1 (0-0.2) k/uL Sodium 140 (137-145) mmol/L Potassium 3.9 (3.5-5.1) mmol/L Chloride 105 (98-107) mmol/L Carbon Dioxide 17 L (22-30) mmol/L Anion Gap 18 mmol/L BUN 19 (9-20) mg/dL Creatinine 1.37 H (0.66-1.25) mg/dL Est GFR (CKD-EPI)AfAm 75 (>60 ml/min/1.73 sqM) Est GFR (CKD-EPI)NonAf 65 (>60 ml/min/1.73 sqM) Glucose 105 H (74-99) mg/dL Calcium 9.1 (8.4-10.2) mg/dL Serum Alcohol <10 mg/dL Coronavirus (PCR) Not Detected (Not Detectd) Disposition <Roskopp,Grzegorz B - Last Filed: 01/14/22 03:39> Is patient prescribed a controlled substance at d/c from ED?: No Time of Disposition: 14:11 <Murali Mcintosh - Last Filed: 01/14/22 14:11> Clinical Impression: Acute psychosis Disposition: HOME SELF-CARE Condition: Fair Instructions (If sedation given, give patient instructions): Depression (ED) Additional Instructions: Please follow up with community mental health. Referrals: None,Stated [Primary Care Provider] - 1-2 days Whitney Almanzar MD [REFERRING] - 1-2 days
[2022-01-13] MEDS ORDERED: HALOPERIDOL LACTATE 5 MG/ML 1 ML VIAL IM STA (23:49)
[2022-01-14] MEDS ORDERED: ACETAMINOPHEN TAB 325 MG TAB PO STA (04:15)
[2022-01-14 05:53] VITALS: TEMP 97.4
[2022-01-14 14:46] VITALS: BP 138/87; PULSE 88; RESP 18
== END 2022-01-14 14:45 | disposition home or self-care (01) ==
LOC: EC 18:15
DX: F23 Brief psychotic disorder (principal); F17.200 Nicotine dependence, unspecified, uncomplicated; Z20.822 Contact with and (suspected) exposure to COVID-19
CPT/HCPCS: 36415; 80048; 85025; 87635; 99284; 96372; G0480; J2060; J1630 ×2; 80320

== ENCOUNTER 2022-02-04 14:08 | Emergency (ER) | payer OTHER ==
[2022-02-04 14:56] VITALS: BP 129/75; PULSE 100; RESP 20; TEMP 97.9
--- NOTE | 2022-02-04 16:40 | ED ---
General Adult HPI - General Chief complaint: ENT Stated complaint: R Ear Pain Time Seen by Provider: 02/04/22 15:51 Source: patient Mode of arrival: ambulatory Limitations: no limitations - History of Present Illness Initial comments: This 41-year-old male presents emergency Department with pain, muffled hearing and bleeding from right ear. Patient states he was cleaning his ear with a Q- tip earlier this morning when he felt pain in experience bleeding coming from right ear. Patient states this happened around 9:30 AM. He states the pain is now aching in nature and states it is 8/10. Patient states the bleeding has stopped since and only bled for a few minutes after the eardrops was placed. Patient denies any fever, chest pain, shortness of breath, abdominal pain, nausea, vomiting, change in bowel or bladder, change in appetite, change in vision, sore throat. - Related Data Home Medications Medication Instructions Recorded Confirmed Nicotine 21Mg/24Hr Patch [Habitrol] 1 patch TRANSDERM DAILY PRN 01/13/22 01/13/22 hydrOXYzine pamoate [hydrOXYzine 25 mg PO TID PRN 01/13/22 01/13/22 PAMOATE] Previous Rx's Medication Instructions Recorded FLUoxetine HCL [PROzac] 40 mg PO DAILY #30 cap 11/27/21 QUEtiapine [SEROquel] 100 mg PO HS #30 tab 11/27/21 Ofloxacin 0.3% Otic Soln [Floxin 10 drops RIGHT EAR BID #10 ml 02/04/22 0.3% Otic Soln] Allergies Allergy/AdvReac Type Severity Reaction Status Date / Time No Known Allergies Allergy Verified 02/04/22 14:56 Review of Systems ROS Statement: Those systems with pertinent positive or pertinent negative responses have been documented in the HPI. ROS Other: All systems not noted in ROS Statement are negative. Past Medical History Past Medical History: No Reported History History of Any Multi-Drug Resistant Organisms: MRSA Date of last positivie culture/infection: 2010 MDRO Source:: left arm Past Surgical History: No Surgical Hx Reported Past Anesthesia/Blood Transfusion Reactions: No Reported Reaction Past Psychological History: Anxiety, Bipolar, PTSD Smoking Status: Current every day smoker Past Alcohol Use History: None Reported Past Drug Use History: None Reported - Past Family History Mother Family Medical History: COPD Father Additional Family Medical History / Comment(s): alcohol abuse General Exam Limitations: no limitations General appearance: alert, in no apparent distress Head exam: Present: atraumatic, normocephalic, normal inspection Eye exam: Present: normal appearance, PERRL, EOMI. Absent: scleral icterus, conjunctival injection, periorbital swelling Pupils: Present: normal accommodation ENT exam: Present: normal exam, normal oropharynx, mucous membranes moist, other (Dry blood in ear canal. No active bleeding present.). Absent: TM's normal bilaterally (Patient with bleeding present in right ear canal. TM attached on the proximal surface, bleeding present at distal surface- possible perforation. No foreign body present.) Neck exam: Present: normal inspection. Absent: tenderness, meningismus, lymphadenopathy Respiratory exam: Present: normal lung sounds bilaterally. Absent: respiratory distress, wheezes, rales, rhonchi, stridor Cardiovascular Exam: Present: regular rate, normal rhythm, normal heart sounds. Absent: systolic murmur, diastolic murmur, rubs, gallop, clicks GI/Abdominal exam: Present: soft, normal bowel sounds. Absent: distended, tenderness, guarding, rebound, rigid Extremities exam: Present: normal inspection, full ROM, normal capillary refill. Absent: tenderness, pedal edema, joint swelling, calf tenderness Back exam: Present: full ROM Neurological exam: Present: alert, oriented X3, CN II-XII intact Psychiatric exam: Present: normal affect, normal mood Skin exam: Present: warm, dry, intact, normal color. Absent: rash Course Vital Signs 02/04/22 14:51 Temperature 97.9 F Pulse Rate 100 Respiratory 20 Rate Blood Pressure 129/75 O2 Sat by Pulse 99 Oximetry Medical Decision Making - Medical Decision Making This 41-year-old male presents emergency Department with possible perforated tympanic membrane. On exam I was able to see cone of light at the proximal surface of the tympanic membrane, however due to blood in the ear canals on unable to see if there is perforation on the distal/bottom portion of TM. No longer any active bleeding. Patient able to hear but states it is a little bit muffled. Patient given ofloxacin drops and instructed to use 10 drops 3 times a day. Patient given follow-up information for her ear nose and throat doctor and instructed to call them in the morning to schedule earliest appointment in the next 1-2 days. Instructed patient to keep water out of the ear and to keep ear/tympanic membrane dry. Instructed him to follow up with primary care provider in the next 1-2 days. Strict return precautions were discussed. Patient verbally agreed to plan. Patient sent home in stable condition. Case discussed in detail with my attending, Dr. Castañeda. Disposition Clinical Impression: Rupture of right tympanic membrane Disposition: HOME SELF-CARE Condition: Stable Instructions (If sedation given, give patient instructions): Ruptured Eardrum (ED) Additional Instructions: Please use ofloxacin drops as directed until seen by ear nose and throat doctor. Please follow-up with ear nose and throat doctor in next 1-2 days. Return to the emergency department with any new, worsening, or concerning symptoms. Prescriptions: Ofloxacin 0.3% Otic Soln [Floxin 0.3% Otic Soln] 10 drops RIGHT EAR BID #10 ml Is patient prescribed a controlled substance at d/c from ED?: No Referrals: Whitney Almanzar MD [Primary Care Provider] - 1-2 days Moe Diaz MD [STAFF PHYSICIAN] - 1-2 days Time of Disposition: 16:40
== END 2022-02-04 17:24 | disposition home or self-care (01) ==
LOC: EC 14:08
DX: H72.91 Unspecified perforation of tympanic membrane, right ear (principal); F17.200 Nicotine dependence, unspecified, uncomplicated
CPT/HCPCS: 99282

== ENCOUNTER 2022-02-06 00:31 | Emergency (ER) | payer OTHER ==
[2022-02-06 00:42] VITALS: BP 132/72; PULSE 69; RESP 18; TEMP 96.9
== END 2022-02-06 04:11 | disposition left against medical advice (07) ==
LOC: EC 00:31
DX: Z53.21 Procedure and treatment not carried out due to patient leaving prior to being seen by health care provider (principal)
CPT/HCPCS: 99499

== ENCOUNTER 2022-08-02 06:57 | Emergency (ER) | payer OTHER ==
[2022-08-02 07:28] VITALS: TEMP 98
[2022-08-02] MEDS ORDERED: LIDOCAINE 1% INJ 10MG/ML (20 ML MDV) SQ ONE (07:42)
[2022-08-02] MEDS ORDERED: SULFAMETHOX-TMP 800-160MG 1 EACH TAB PO STA (08:25)
--- NOTE | 2022-08-02 08:25 | ED ---
General Adult HPI - General Chief complaint: Skin/Abscess/Foreign Body Stated complaint: Finger swelling Time Seen by Provider: 08/02/22 07:30 Source: patient, RN notes reviewed, old records reviewed Mode of arrival: ambulatory Limitations: no limitations - History of Present Illness Initial comments: This is a 41-year-old male presents emergency Department complaining of right index finger pain. Patient states it started yesterday the tip of the finger became swollen and red he doesn't remember injuring it. Patient states she does have a history of MRSA. Patient states he doesn't know if something bit him or why it is red and hardened infected. Patient states it's just the tip of the right index finger. Does not around the nail it smaller in the pulp of the finger. Patient denies any fever chills. Patient denies any streaking redness going down the finger or into the hand. - Related Data Home Medications Medication Instructions Recorded Confirmed Nicotine 21Mg/24Hr Patch [Habitrol] 1 patch TRANSDERM DAILY PRN 01/13/22 01/13/22 hydrOXYzine pamoate [hydrOXYzine 25 mg PO TID PRN 01/13/22 01/13/22 PAMOATE] Previous Rx's Medication Instructions Recorded FLUoxetine HCL [PROzac] 40 mg PO DAILY #30 cap 11/27/21 QUEtiapine [SEROquel] 100 mg PO HS #30 tab 11/27/21 Ofloxacin 0.3% Otic Soln [Floxin 10 drops RIGHT EAR BID #10 ml 02/04/22 0.3% Otic Soln] Cephalexin [Keflex] 500 mg PO Q6HR #20 cap 08/02/22 Mupirocin 2% Oint [Bactroban 2% 1 applic TOPICAL TID #22 gm 08/02/22 Oint] Sulfamethox-Tmp 800-160Mg [Bactrim 1 each PO Q12HR #20 tab 08/02/22 DS 800-160 mg] Allergies Allergy/AdvReac Type Severity Reaction Status Date / Time No Known Allergies Allergy Verified 08/02/22 07:27 Review of Systems ROS Statement: Those systems with pertinent positive or pertinent negative responses have been documented in the HPI. ROS Other: All systems not noted in ROS Statement are negative. Past Medical History Past Medical History: No Reported History History of Any Multi-Drug Resistant Organisms: MRSA Date of last positivie culture/infection: 2010 MDRO Source:: left arm Past Surgical History: No Surgical Hx Reported Past Anesthesia/Blood Transfusion Reactions: No Reported Reaction Past Psychological History: Anxiety, Bipolar, PTSD Smoking Status: Current every day smoker Past Alcohol Use History: None Reported Past Drug Use History: Marijuana, Methamphetamine - Past Family History Mother Family Medical History: COPD Father Additional Family Medical History / Comment(s): alcohol abuse General Exam - General Exam Comments Initial Comments: GENERAL Patient is well-developed and well-nourished. Patient is in mild distress. EYES Patient's pupils are equal and round. Extraocular motion is intact SKIN Unremarkable NEURO The patient is alert and oriented 3 PYSCH Patient has normal interpersonal interactions. MUSCULOSKELETAL Right index finger is swollen at the tip the pulp is very tender and it is er ythematous. There is no redness going down the finger into the hand there is no swelling of the rest of the finger. Limitations: no limitations Course Vital Signs 08/02/22 07:25 Temperature 98 F Pulse Rate 102 H Respiratory 20 Rate Blood Pressure 131/78 O2 Sat by Pulse 99 Oximetry Procedures - Incision & Drainage Consent Obtained: verbal consent Site: other (Finger index right) Anesthetic Used: lidocaine 1% Scalpel Used: #15 (Incision was about 1 cm in length) Irrigation Performed?: Yes I&D Drainage Obtained: Pus, Blood (About 1 mL of pus was obtained and cultured and sent) Culture Obtained?: Yes Medical Decision Making - Medical Decision Making I incised the medial aspect of the index finger and about a milliliter of pus was removed I did some for culture. Patient was also given antibiotics in the emergency department. Patient states she was going to go right to the pharmacy after he left here and get his antibiotics filled and take until completion. Patient was told to follow up with or so tomorrow. Patient also was told if symptoms worsen to come back to the emergency department. Disposition Clinical Impression: Mary Disposition: HOME SELF-CARE Condition: Good Instructions (If sedation given, give patient instructions): Abscess (ED) Prescriptions: Sulfamethox-Tmp 800-160Mg [Bactrim DS 800-160 mg] 1 each PO Q12HR #20 tab Mupirocin 2% Oint [Bactroban 2% Oint] 1 applic TOPICAL TID #22 gm Cephalexin [Keflex] 500 mg PO Q6HR #20 cap Is patient prescribed a controlled substance at d/c from ED?: No Referrals: None,Stated [Primary Care Provider] - 1-2 days Time of Disposition: 08:22
[2022-08-02] MEDS ORDERED: CEPHALEXIN 500 MG CAP PO STA (08:26)
[2022-08-02] MEDS ORDERED: BACITRACIN OINT 1 EACH PACKET TOPICAL ONE (08:41)
[2022-08-02] MEDS ORDERED: ACETAMINOPHEN TAB 325 MG TAB PO STA (08:52)
[2022-08-02 08:59] VITALS: BP 124/94; PULSE 64; RESP 18
== END 2022-08-02 08:59 | disposition home or self-care (01) ==
LOC: EC 06:57
DX: L03.011 Cellulitis of right finger (principal); F17.200 Nicotine dependence, unspecified, uncomplicated
CPT/HCPCS: 87070; 87205; 99283; 10060; J2001

== ENCOUNTER 2025-02-16 19:36 | Emergency (ER) | payer OTHER ==
[2025-02-16 19:40] VITALS: RESP 18
--- NOTE | 2025-02-16 20:11 | ED ---
General Adult HPI - General Chief complaint: Nausea/Vomiting/Diarrhea Stated complaint: lethargic and vomiting Time Seen by Provider: 02/16/25 19:43 Source: patient, RN notes reviewed Mode of arrival: ambulatory Limitations: no limitations - History of Present Illness Initial comments: 44-year-old male presents to the emergency department for evaluation of overall not feeling well. Patient states that symptoms have been going on for 3 days but have worsened today. He notes multiple episodes of vomiting today. He states that he feels like he has been running a fever but has not documented a fever at home. He endorses nasal congestion. Denies any abdominal pain. Denies any changes in his bowel movements. Denies any past medical history. - Related Data Previous Rx's Medication Instructions Recorded HYDROcodone/APAP 7.5-325MG [[place] 1 each PO Q6HR PRN #28 tab 03/04/24 7.5] Sulfamethoxazole/Trimethoprim 1 each PO BID #20 tablet 03/04/24 [Bactrim DS 800-160 mg] Allergies Allergy/AdvReac Type Severity Reaction Status Date / Time No Known Allergies Allergy Verified 02/16/25 19:40 Review of Systems ROS Statement: Those systems with pertinent positive or pertinent negative responses have been documented in the HPI. ROS Other: All systems not noted in ROS Statement are negative. Past Medical History Past Medical History: No Reported History History of Any Multi-Drug Resistant Organisms: MRSA Date of last positivie culture/infection: 03/04/2024 MDRO Source:: LEFT HAND & ARM Past Surgical History: Orthopedic Surgery Past Anesthesia/Blood Transfusion Reactions: No Reported Reaction Past Psychological History: Anxiety, Bipolar, PTSD Smoking Status: Vaper Past Alcohol Use History: None Reported Past Drug Use History: Marijuana, Methamphetamine - Past Family History Mother Family Medical History: COPD Father Additional Family Medical History / Comment(s): alcohol abuse General Exam Limitations: no limitations General appearance: alert, in no apparent distress Head exam: Present: atraumatic, normocephalic, normal inspection Eye exam: Present: normal appearance, PERRL, EOMI. Absent: scleral icterus, c onjunctival injection, periorbital swelling ENT exam: Present: normal exam, mucous membranes moist Neck exam: Present: normal inspection. Absent: tenderness, meningismus, lymphadenopathy Respiratory exam: Present: normal lung sounds bilaterally. Absent: respiratory distress, wheezes, rales, rhonchi, stridor Cardiovascular Exam: Present: regular rate, normal rhythm, normal heart sounds. Absent: systolic murmur, diastolic murmur, rubs, gallop, clicks GI/Abdominal exam: Present: soft, normal bowel sounds. Absent: distended, tenderness, guarding, rebound, rigid Extremities exam: Present: normal inspection, full ROM, normal capillary refill. Absent: tenderness, pedal edema, joint swelling, calf tenderness Neurological exam: Present: alert, oriented X3 Psychiatric exam: Present: normal affect, normal mood Skin exam: Present: warm, dry, intact, normal color. Absent: rash Course Vital Signs 02/16/25 02/16/25 19:37 23:06 Temperature 97.5 F L 97.6 F Pulse Rate 85 60 Respiratory 18 18 Rate Blood Pressure 150/89 124/76 O2 Sat by Pulse 99 99 Oximetry Medical Decision Making - Medical Decision Making Was pt. sent in by a medical professional or institution (, PA, SECOND OPERATOR, urgent care, hospital, or care home...) When possible be specific @ -No Did you speak to anyone other than the patient for history (EMS, parent, family, police, friend...)? What history was obtained from this source @ -No Did you review nursing and triage notes (agree or disagree)? Why? @ -I reviewed and agree with nursing and triage notes Were old charts reviewed (outside hosp., previous admission, EMS record, old EKG, old radiological studies, urgent care reports/EKG's, care home records)? Report findings @ -No old charts were reviewed Differential Diagnosis (chest pain, altered mental status, abdominal pain women, abdominal pain men, vaginal bleeding, weakness, fever, dyspnea, syncope, headache, dizziness, GI bleed, back pain, seizure, CVA, palpatations, mental health, musculoskeletal)? @ -COVID, influenza, RSV, strep pharyngitis, pneumonia, this list is not all inclusive. EKG interpreted by me (3pts min.). @ -None X-rays interpreted by me (1pt min.). @ -None done CT interpreted by me (1pt min.). @ -None done U/S interpreted by me (1pt. min.). @ -None done What testing was considered but not performed or refused? (CT, X-rays, U/S, labs)? Why? @ -None What meds were considered but not given or refused? Why? @ -None Did you discuss the management of the patient with other professionals (professionals i.e. , PA, SECOND OPERATOR, lab, RT, psych nurse, social sciences lecturer, philosophy professor, teacher, ship's electronic warfare officer, nurse case manager)? Give summary @ -No Was smoking cessation discussed for >3mins.? @ -No Was critical care preformed (if so, how long)? @ -No Were there social determinants of health that impacted care today? How? (Homelessness, low income, unemployed, alcoholism, drug addiction, transportation, low edu. Level, literacy, decrease access to med. care, custodial, rehab)? @ -No Was there de-escalation of care discussed even if they declined (Discuss DNR or withdrawal of care, Hospice)? DNR status @ -No What co-morbidities impacted this encounter? (DM, HTN, Smoking, COPD, CAD, Cancer, CVA, ARF, Chemo, Hep., AIDS, mental health diagnosis, sleep apnea, morbid obesity)? @ -None Was patient admitted / discharged? Hospital course, mention meds given and route, prescriptions, significant lab abnormalities, going to OR and other pertinent info. @ -Discharge. Patient presented emergency department for evaluation of nausea, vomiting, nasal congestion and overall not feeling well. Laboratory studies were obtained revealing no significant leukocytosis, hemoglobin stable; CMP is nonactionable, no significant elevation in lipase. Patient was provided IV fluids, Zofran, Toradol in the emergency department. He does report improvement in his symptoms. He is tolerating p.o. intake. He will be discharged home. He is understanding agreeable with plan. Patient stable at time of discharge. Case discussed with Dr. Colmenares Undiagnosed new problem with uncertain prognosis? @ -No Drug Therapy requiring intensive monitoring for toxicity (Heparin, Nitro, Insulin, Cardizem)? @ -No Were any procedures done? @ -No Diagnosis/symptom? @ -Nausea and vomiting Acute, or Chronic, or Acute on Chronic? @ -Acute Uncomplicated (without systemic symptoms) or Complicated (systemic symptoms)? @ -Uncomplicated Side effects of treatment? @ -No Exacerbation, Progression, or Severe Exacerbation? @ -No Poses a threat to life or bodily function? How? (Chest pain, [place], MA, pneumonia, PE, COPD, DKA, ARF, appy, cholecystitis, CVA, Diverticulitis, Homicidal, Suicidal, threat to staff... and all critical care pts) @ -No - Lab Data Result diagrams: 02/16/25 20:41 02/16/25 20:41 Lab Results 02/16/25 02/16/25 02/16/25 Range/Units 20:41 20:41 20:41 WBC 7.32 (4.50-10.00) 10*3/uL RBC 4.84 (4.40-5.60) 10*6/uL Hgb 14.6 (13.0-17.0) g/dL Hct 41.7 (39.6-50.0) % MCV 86.2 (80.0-97.0) fL MCH 30.2 (27.0-32.0) pg MCHC 35.0 (32.0-37.0) g/dL Plt Count 414 (140-440) 10*3/uL MPV 8.4 L (9.5-12.2) fL Immature Gran % (Auto) 0.1 % Neutrophils % 53.7 % Lymphocytes % 36.1 % Monocytes % 7.1 % Eosinophils % 2.2 % Basophils % 0.8 % Immature Gran # 0.01 (0.00-0.04) 10*3/uL Neutrophils # 3.93 (1.80-7.70) 10*3/uL Lymphocytes # 2.64 (0.90-5.00) 10*3/uL Monocytes # 0.52 (0.20-1.00) 10*3/uL Eosinophils # 0.16 (0.04-0.35) 10*3/uL Basophils # 0.06 (0.00-0.10) 10*3/uL Sodium 137 (137-145) mmol/L Potassium 4.2 (3.5-5.1) mmol/L Chloride 100 (98-107) mmol/L Carbon Dioxide 25 (22-30) mmol/L Anion Gap 12 mmol/L BUN 20 (9-20) mg/dL Creatinine 0.91 (0.66-1.25) mg/dL Est GFR (CKD-EPI)AfAm >90 (>60 ml/min/1.73 sqM) Est GFR (CKD-EPI)NonAf >90 (>60 ml/min/1.73 sqM) Glucose 69 L (74-99) mg/dL Calcium 10.2 (8.4-10.2) mg/dL Total Bilirubin 0.9 (0.2-1.3) mg/dL AST 43 (17-59) U/L ALT 30 (4-49) U/L Alkaline Phosphatase 79 (38-126) U/L Total Protein 6.9 (6.3-8.2) g/dL Albumin 4.4 (3.5-5.0) g/dL Amylase 207 H (30-110) U/L Lipase 65 (23-300) U/L Influenza Type A (PCR) Not Detected (Not Detectd) Influenza Type B (PCR) Not Detected (Not Detectd) RSV (PCR) Not Detected (Not Detectd) SARS-CoV-2 (PCR) Not Detected (Not Detectd) Disposition Clinical Impression: Nausea and vomiting Disposition: HOME SELF-CARE Condition: Stable Instructions (If sedation given, give patient instructions): Acute Nausea and Vomiting (ED) Additional Instructions: Please follow up with your doctor. Return to the emergency department for new or worsening symptoms. Is patient prescribed a controlled substance at d/c from ED?: No Referrals: None,Stated [Primary Care Provider] - 1-2 days
[2025-02-16] MEDS: SODIUM CHLORIDE 0.9% 1,000 ML IV ONE (20:43)
[2025-02-16] MEDS: ONDANSETRON 4 MG/2 ML VIAL IVP STA (20:44)
[2025-02-16] MEDS: KETOROLAC 15 MG/ML 1 ML VIAL IVP STA (20:44)
[2025-02-16 20:50] LABS: Basophils # (A) 0.06 10*3/uL (0.00-0.10); Basophils % (A) 0.8 %; Eosinophils # (A) 0.16 10*3/uL (0.04-0.35); Eosinophils % (A) 2.2 %; HCT 41.7 % (39.6-50.0); HGB 14.6 g/dL (13.0-17.0); Lymphocytes # (A) 2.64 10*3/uL (0.90-5.00); Lymphocytes % (A) 36.1 %; MCH 30.2 pg (27.0-32.0); MCV 86.2 fL (80.0-97.0); Mean Platelet Volume 8.4 fL (9.5-12.2); Monocytes # (A) 0.52 10*3/uL (0.20-1.00); Monocytes % (A) 7.1 %; Neutrophils # (A) 3.93 10*3/uL (1.80-7.70); Neutrophils % (A) 53.7 %; Platelet Count 414 10*3/uL (140-440); RBC 4.84 10*6/uL (4.40-5.60); RDW 13.7 % (11.5-14.5); WBC 7.32 10*3/uL (4.50-10.00)
[2025-02-16 21:18] LABS: ALT 30 U/L (4-49); AST 43 U/L (17-59); African American GFR (CKD) >90 (>60 ml/min/1.73 sqM); Albumin 4.4 g/dL (3.5-5.0); Alkaline Phosphatase 79 U/L (38-126); Amylase 207 U/L (30-110); Anion Gap 12 mmol/L; Blood Urea Nitrogen 20 mg/dL (9-20); Calcium 10.2 mg/dL (8.4-10.2); Carbon Dioxide 25 mmol/L (22-30); Chloride 100 mmol/L (98-107); Glucose 69 mg/dL (74-99); Lipase 65 U/L (23-300); Non-African American GFR(CKD) >90 (>60 ml/min/1.73 sqM); Potassium 4.2 mmol/L (3.5-5.1); Sodium 137 mmol/L (137-145); Total Bilirubin 0.9 mg/dL (0.2-1.3); Total Protein 6.9 g/dL (6.3-8.2)
[2025-02-16 21:26] LABS: Influenza A Not Detected (Not Detectd); Influenza B Not Detected (Not Detectd); RSV Not Detected (Not Detectd)
[2025-02-16 23:07] VITALS: BP 124/76; PULSE 60; TEMP 97.6
[2025-02-16] MEDS: ONDANSETRON 4 MG ODT STARTER PACK 2 TAB BTL PO STA (23:15)
== END 2025-02-16 23:16 | disposition home or self-care (01) ==
LOC: EC 19:36
DX: R11.2 Nausea with vomiting, unspecified (principal); F17.290 Nicotine dependence, other tobacco product, uncomplicated
CPT/HCPCS: 36415; 80053; 82150; 83690; 85025; 87636; 99284; 96374; 96375; 96361; J2405; J1885; S0119

== ENCOUNTER 2025-04-14 09:24 | Emergency (ER) | payer OTHER ==
[2025-04-14] MEDS: HYDROcodone/APAP 7.5-325MG 1 EACH TAB PO ONE (09:48)
[2025-04-14] MEDS: KETOROLAC 15 MG/ML 1 ML VIAL IM STA (09:48)
--- NOTE | 2025-04-14 09:50 | ED ---
ENT HPI - General Chief complaint: ENT Stated complaint: Ear infection Time Seen by Provider: 04/14/25 09:29 Source: patient, RN notes reviewed Mode of arrival: ambulatory Limitations: no limitations - History of Present Illness Initial comments: This is a 44-year-old male who presents to the emergency department for left ear pain. States that it started a couple of days ago. He did go swimming shortly beforehand. He has noticed redness and swelling to the outside of the ear. He has not noticed any substantial discomfort inside of the ear. Denies any difficulty hearing. Denies any trauma. Denies any fevers/chills. MD complaint: ear pain - Related Data Previous Rx's Medication Instructions Recorded HYDROcodone/APAP 7.5-325MG [[place] 1 each PO Q6HR PRN #28 tab 03/04/24 7.5] Sulfamethoxazole/Trimethoprim 1 each PO BID #20 tablet 03/04/24 [Bactrim DS 800-160 mg] Ciprofloxacin HCl [Cipro] 750 mg PO Q12H 7 Days #14 tab 04/14/25 Ciprofloxacin-Dexameth [Ciprodex 4 drops LEFT EAR BID 7 Days #7.5 ml 04/14/25 Otic Susp] Ketorolac [Toradol] 10 mg PO Q6HR PRN #15 tab 04/14/25 Allergies Allergy/AdvReac Type Severity Reaction Status Date / Time No Known Allergies Allergy Verified 04/14/25 09:28 Review of Systems ROS Statement: Those systems with pertinent positive or pertinent negative responses have been documented in the HPI. ROS Other: All systems not noted in ROS Statement are negative. Past Medical History Past Medical History: No Reported History History of Any Multi-Drug Resistant Organisms: MRSA Date of last positivie culture/infection: 03/04/2024 MDRO Source:: LEFT HAND & ARM Past Surgical History: Orthopedic Surgery Past Anesthesia/Blood Transfusion Reactions: No Reported Reaction Past Psychological History: Anxiety, Bipolar, PTSD Smoking Status: Current every day smoker, Vaper Past Alcohol Use History: Occasional Past Drug Use History: Marijuana, Methamphetamine - Past Family History Mother Family Medical History: COPD Father Additional Family Medical History / Comment(s): alcohol abuse General Exam Limitations: no limitations General appearance: alert, in no apparent distress Head exam: Present: atraumatic, normocephalic, normal inspection ENT exam: Present: other (Erythema, swelling, and tenderness to the left pinna. No TM bulging or erythema. Possible mild canal erythema) Respiratory exam: Present: normal lung sounds bilaterally. Absent: respiratory distress, wheezes, rales, rhonchi, stridor Cardiovascular Exam: Present: regular rate, normal rhythm Neurological exam: Present: alert, oriented X3, CN II-XII intact Psychiatric exam: Present: normal affect, normal mood Course Vital Signs 04/14/25 04/14/25 09:26 10:13 Temperature 97.4 F L 98.0 F Pulse Rate 68 72 Respiratory 20 20 Rate Blood Pressure 155/83 146/80 O2 Sat by Pulse 99 99 Oximetry Medical Decision Making - Medical Decision Making This is a 44-year-old male who presents to the emergency department for left ear pain. Was pt. sent in by a medical professional or institution? @ -No Did you speak to anyone other than the patient for history? @ -No Did you review nursing and triage notes? @ -Yes, and I agree, it is accurate with regards to the patient's symptoms. Were old charts reviewed? @ -No Differential Diagnosis? @ -Otitis media, otitis externa, eustachian tube dysfunction, allergic rhinitis, barotrauma, bullous myringitis, this is not meant to be an all- inclusive list. EKG interpreted by me (3pts min.)? @ -Not obtained X-rays interpreted by me (1pt min.)? @ -Not obtained CT interpreted by me (1pt min.)? @ -Not obtained U/S interpreted by me (1pt. min.)? @ -Not obtained What testing was considered but not performed? (CT, X-rays, U/S, labs)? Why? @ -None What meds were considered but not given? Why? @ -None Did you discuss the management of the patient with other professionals? @ -No Did you reconcile home meds? @ -No Was smoking cessation discussed for >3mins.? @ -I discussed smoking cessation for greater than 3 minutes. The risk of smoking were discussed with the patient including but not limited to risks of cancer, stroke, coronary artery disease and COPD. Also discussed with patient were multiple methods of quitting smoking. Lastly we discussed the financial cost of smoking. Was critical care preformed (if so, how long)? @ -No Were there social determinants of health that impacted care today? How? (Homelessness, low income, unemployed, alcoholism, drug addiction, transportation, low edu. Level, literacy, decrease access to med. care, residential, rehab)? @ -No Was there de-escalation of care discussed even if they declined? (Discuss DNR or withdrawal of care, Hospice)? @ -No What co-morbidities impacted this encounter? (DM, HTN, Smoking, COPD, CAD, Cancer, CVA, Hep., AIDS, mental health diagnosis, sleep apnea, morbid obesity)? @ -Smoking Was patient admitted / discharged? @ -Discharged. On exam he had erythema, swelling, and tenderness to the pinna suggestive of perichondritis. Current recommendations are to treat with a fluoroquinolone for Pseudomonas coverage. Ciprofloxacin was prescribed along with Ciprodex drops for potential associated otitis externa since he was swimming beforehand. Toradol prescribed for pain control. Strict return parameters were discussed and he was discharged home in stable condition. Case discussed with ED attending Dr. Mcintosh. Return precautions reviewed in depth, the patient is instructed to return to the emergency department with any new, worsening, or concerning symptoms. Patient verbalized understanding. Undiagnosed new problem with uncertain prognosis? @ -None Drug Therapy requiring intensive monitoring for toxicity (Heparin, Nitro, Insulin, Cardizem)? @ -None Were any procedures done? @ -None Diagnosis/symptom? @ -Perichondritis, otitis externa Acute, or Chronic, or Acute on Chronic? @ -Acute Uncomplicated (without systemic symptoms) or Complicated (systemic symptoms)? @ -Uncomplicated Side effects of treatment? @ -None Exacerbation, Progression, or Severe Exacerbation] @ -Not applicable Poses a threat to life or bodily function? @ -No Disposition Clinical Impression: Left otitis externa, Perichondritis of auricle, Nicotine dependence Disposition: HOME SELF-CARE Instructions (If sedation given, give patient instructions): Swimmer's Ear (ED) Additional Instructions: Return to the emergency department with any new, worsening, or concerning symptoms. Take the oral antibiotic and use the antibiotic eardrops as prescribed for 7 days. Take the Toradol with Tylenol as needed for pain relief. If you choose to take the Toradol, do not take any other anti-inflammatories such as ibuprofen, take one or the other. Prescriptions: Ciprofloxacin HCl [Cipro] 750 mg PO Q12H 7 Days #14 tab Ciprofloxacin-Dexameth [Ciprodex Otic Susp] 4 drops LEFT EAR BID 7 Days #7.5 ml Ketorolac [Toradol] 10 mg PO Q6HR PRN #15 tab PRN Reason: Pain Is patient prescribed a controlled substance at d/c from ED?: No Referrals: None,Stated [Primary Care Provider] - 1-2 days Forms: Area PCPs Time of Disposition: 09:49
[2025-04-14] MEDS: ACET/COD 300 MG/30 MG STARTER PACK 6 TAB BTL PO STA (10:05)
[2025-04-14 10:43] VITALS: BP 146/80; PULSE 72; RESP 20; TEMP 98
== END 2025-04-14 10:14 | disposition home or self-care (01) ==
LOC: EC 09:24
DX: H60.92 Unspecified otitis externa, left ear (principal); H61.002 Unspecified perichondritis of left external ear; F17.290 Nicotine dependence, other tobacco product, uncomplicated
CPT/HCPCS: 99282; 96372; J1885